=== PATIENT | female | born 1950 | race Caucasian/White ===

== ENCOUNTER → 2016-10-17 | Outpatient (CLI) | payer OTHER ==
--- NOTE | 2016-10-18 09:03 | BD ---
EXAMINATION TYPE: MG DEXA axial skeleton. DATE OF EXAM: 10/17/2016 COMPARISON: Prior DEXA bone scan March 31, 2013 CLINICAL HISTORY: Breast cancer per order. Height: 4'10 Weight: 105.4 FRAX RISK QUESTIONS: Alcohol (3 or more units per day): NO Family History (Parent hip fracture): NO Glucocorticoids (More than 3mos): NO (Ex: prednisone, prednisolone, methylprednisolone, dexamethasone, and hydrocortisone). History of Fracture in Adulthood: NO Secondary Osteoporosis: 1. Type 1 Diabetes: NO 2. Hyperthyroidism: NO 3. Menopause before 45: YES 4. Malnutrition: NO 5. Chronic liver disease: NO Rheumatoid Arthritis: NO Current Tobacco Use: NO RISK FACTORS HISTORY OF: Hip Fracture (Right/Left): NO Spine Fracture: NO History of Wrist Fracture: NO Surgery to Spine/Hip(right/left)/Wrist (right/left): NO Family History of Osteoporosis: NO Active: YES Diet low in dairy products/other sources of calcium: NO Postmenopausal woman: AGE 37 DUE TO BREAST CANCER Lost more than 2 inches in height since high school: NO Frequent falls: NO Poor Health: NO Hyperparathyroidism: NO Adrenal Insufficiency: NO MEDICATIONS: CHEMO PILLS, CHEMO SHOTS, FOSAMAX 2-3 YEARS , IBRANCE Additional History: PT HAS HAD BREAST CANCER/ ALSO HAD BONE AND LUNG CANCER EXAM MEASUREMENTS: Bone mineral densitometry was performed using the [email or web address] System. Bone mineral density as measured about the Lumbar spine is: ----- L1-L4(G/cm2): 0.718 T Score Values are as follows: ----- L2: -4.2 ----- L3: -3.6 ----- L4: -3.5 ----- L1-L4: -3.8 Bone mineral density has: DECREASED -5.9 % since study of: 03.31.2013 Bone mineral density about the R hip (g/cm2): 0.535 Bone mineral density about the L hip (g/cm2): 0.547 T Score values are as follows: -----R Neck: -3.6 -----L Neck: -3.5 -----R Total: -3.3 -----L Total: -3.4 Bone mineral density has: DECREASED -11.6 % since study of: 03.31.2013 IMPRESSION: Osteoporosis (T Score less than -2.5) as noted by T Score values at the low back and both hips remain s present. Bone density continues to decreased or diminished from prior study. There is increased fra cture risk and therapy is usually indicated based on age. Re-Screen 1-2 years. NOTE: T-SCORE=SD OF THE YOUNG ADULT MEAN.
== END | disposition home or self-care (01) ==
LOC: RADBDWWP 14:58
PROVIDERS: ATTEND Internal Medicine Hematology & Oncology
DX: C50.819 Malignant neoplasm of overlapping sites of unspecified female breast (principal); M81.0 Age-related osteoporosis without current pathological fracture
CPT/HCPCS: 77080

== ENCOUNTER → 2018-04-14 | Outpatient (CLI) | payer OTHER ==
--- NOTE | 2018-04-14 12:07 | ECHOF ---
Referral Reason:I34.0 mitral valve insufficiency MEASUREMENTS -------- HEIGHT: 147.3 cm WEIGHT: 48.1 kg BP: 120/75 RVIDd: 2.1 cm (< 3.3) IVSd: 1.0 cm (0.6 - 1.1) LVIDd: 3.7 cm (3.9 - 5.3) LVPWd: 0.9 cm (0.6 - 1.1) IVSs: 1.2 cm LVIDs: 2.1 cm LVPWs: 1.2 cm LA Diam: 2.6 cm (2.7 - 3.8) LAESV Index (A-L): 19.29 ml/m Ao Diam: 2.9 cm (2.0 - 3.7) AV Cusp: 1.9 cm (1.5 - 2.6) MV EXCURSION: 14.056 mm (> 18.000) MV EF SLOPE: 50 mm/s (70 - 150) EPSS: 0.7 cm MV E Aram: 0.72 m/s MV DecT: 166 ms MV A Aram: 1.01 m/s MV E/A Ratio: 0.71 RAP: 5.00 mmHg RVSP: 27.00 mmHg FINDINGS -------- Sinus rhythm. This was a technically adequate study. The left ventricular size is normal. Left ventricular wall thickness is normal. Overall left vent ricular systolic function is normal with, an EF between 55 - 60 %. The right ventricle is normal in size. Normal LA size by volume 22+/-6 ml/m2. The right atrium is normal in size. The aortic valve is trileaflet and appears structurally normal. Trace to mild aortic regurgitation. The mitral valve is normal. There is trace to mild mitral regurgitation. Mild tricuspid regurgitation present. Right ventricular systolic pressure is normal at < 35 mmHg. There is no evidence of pulmonary hypertension. Trace/mild (physiologic) pulmonic regurgitation. The aortic root size is normal. Normal inferior vena cava with normal inspiratory collapse consistent with estimated right atrial pre ssure of 5 mmHg. There is no pericardial effusion. CONCLUSIONS -------- 1. Sinus rhythm. 2. This was a technically adequate study. 3. The left ventricular size is normal. 4. Left ventricular wall thickness is normal. 5. Overall left ventricular systolic function is normal with, an EF between 55 - 60 %. 6. Normal LA size by volume 22+/-6 ml/m2. 7. Trace to mild aortic regurgitation. 8. There is trace to mild mitral regurgitation. 9. Mild tricuspid regurgitation present. 10. Right ventricular systolic pressure is normal at < 35 mmHg. 11. Trace/mild (physiologic) pulmonic regurgitation. 12. The aortic root size is normal. 13. Normal inferior vena cava with normal inspiratory collapse consistent with estimated right atrial pressure of 5 mmHg. 14. There is no pericardial effusion. CLASSROOM PARAPROFESSIONAL: Johnna Zavala RDCS
== END | disposition home or self-care (01) ==
LOC: RADECHMAIN 08:19
PROVIDERS: ATTEND Family Medicine
DX: I08.8 Other rheumatic multiple valve diseases (principal); C50.819 Malignant neoplasm of overlapping sites of unspecified female breast
CPT/HCPCS: 93306

== ENCOUNTER → 2018-12-15 | Outpatient (CLI) | payer OTHER ==
--- NOTE | 2018-12-15 10:34 | BD ---
EXAMINATION TYPE: Axial Bone Density DATE OF EXAM: 12/15/2018 COMPARISON: 2017 CLINICAL HISTORY: disorder of bone Height: 4'9 Weight: 100 FRAX RISK QUESTIONS: Secondary Osteoporosis: 3. Menopause before 45: y RISK FACTORS HISTORY OF: Postmenopausal woman: y -----Osteoporosis Medications: -----Which medication: Fosamax -----How Lon years MEDICATIONS: Additional Medications: breast cancer Additional History: 2013 radiation for breast cancer, 20 years ago chemotherapy EXAM MEASUREMENTS: Bone mineral densitometry was performed using the [employer] System. Bone mineral density as measured about the Lumbar spine is: ----- L1-L4(G/cm2): 0.708 T Score Values are as follows: ----- L2: -4.1 ----- L3: -3.5 ----- L4: -3.7 ----- L1-L4: -3.9 Bone mineral density has: Decreased -0.5% since study of: 10/17/2016 Bone mineral density about the R hip (g/cm2): 0.526 Bone mineral density about the L hip (g/cm2): 0.550 T Score values are as follows: -----R Neck: -3.7 -----L Neck: -3.5 -----R Total: -3.5 -----L Total:-3.6 Bone mineral density has: Decreased -4.4% since study of: 10/17/2016 IMPRESSION: Osteoporosis (T Score less than -2.5) remains present. There remains increased fracture risk and therapy is usually indicated based on age. Re-Screen 1-2 years. NOTE: T-SCORE=SD OF THE YOUNG ADULT MEAN.
== END | disposition home or self-care (01) ==
LOC: RADBDWWP 09:05
PROVIDERS: ATTEND Internal Medicine Hematology & Oncology
DX: M81.0 Age-related osteoporosis without current pathological fracture (principal); C50.819 Malignant neoplasm of overlapping sites of unspecified female breast
CPT/HCPCS: 77080

== ENCOUNTER 2019-03-02 17:00 | Emergency (ER) | payer MEDICARE, BC ==
--- NOTE | 2019-03-02 17:22 | ED ---
General Adult HPI - General Chief complaint: Upper Respiratory Infection Stated complaint: Viral infection Time Seen by Provider: 03/02/19 17:15 Source: patient, RN notes reviewed, old records reviewed Mode of arrival: ambulatory Limitations: no limitations - History of Present Illness Initial comments: 68-year-old female presenting for evaluation of cough, dehydration. Patient was sent in by primary care physician for evaluation. She has metastatic breast cancer currently following with oncology and receiving monthly infusion. She denies fever. She's had increased fatigue and weakness associated with this cough. Cough is productive of green sputum. She denies rhinorrhea, denies sore throat. She states she's had very poor appetite and has not been eating or drinking well. No vomiting or diarrhea. No dyspnea or shortness of breath. No abdominal pain. No lower extremity pain or swelling. - Related Data Home Medications Medication Instructions Recorded Confirmed Multivitamins, Thera [Multivitamin 1 tab PO DAILY 03/02/19 03/02/19 (formulary)] Palbociclib [Ibrance] 125 mg PO DIRECTED 03/02/19 03/02/19 Previous Rx's Medication Instructions Recorded Levofloxacin [Levaquin] 750 mg PO DAILY 3 Days #7 tab 03/02/19 Allergies Allergy/AdvReac Type Severity Reaction Status Date / Time No Known Allergies Allergy Verified 03/02/19 18:22 Review of Systems ROS Statement: Those systems with pertinent positive or pertinent negative responses have been documented in the HPI. ROS Other: All systems not noted in ROS Statement are negative. Past Medical History Past Medical History: Cancer Additional Past Medical History / Comment(s): breast ca History of Any Multi-Drug Resistant Organisms: None Reported Past Surgical History: Breast Surgery Additional Past Surgical History / Comment(s): lt masectomy Past Psychological History: No Psychological Hx Reported Smoking Status: Never smoker Past Alcohol Use History: None Reported Past Drug Use History: None Reported General Exam Limitations: no limitations General appearance: alert, in no apparent distress Head exam: Present: atraumatic, normocephalic Eye exam: Present: normal appearance, PERRL ENT exam: Present: mucous membranes dry Respiratory exam: Present: rhonchi. Absent: respiratory distress, wheezes, rales Cardiovascular Exam: Present: normal rhythm, tachycardia GI/Abdominal exam: Present: soft. Absent: distended, tenderness, guarding, rebound Extremities exam: Present: normal inspection, normal capillary refill. Absent: pedal edema, calf tenderness Neurological exam: Present: alert, oriented X3, CN II-XII intact. Absent: motor sensory deficit Psychiatric exam: Present: normal affect, normal mood Skin exam: Present: warm, dry, intact. Absent: cyanosis, diaphoretic Course Vital Signs 03/02/19 17:02 Temperature 98.4 F Pulse Rate 130 H Respiratory 22 Rate Blood Pressure 124/71 O2 Sat by Pulse 97 Oximetry EKG Findings - EKG Comments: EKG Findings:: EKG: Sinus tachycardia, left axis deviation, rate of 106, [place] interval 128, QRS duration 96, QTC [address] segment elevation Medical Decision Making - Medical Decision Making 68-year-old female with metastatic breast cancer increased cough. Workup in the emergency department reveals chest x-ray with large left-sided pleural effusion and loss of her volume which has progressed compared to compared with chest x- ray. She has leukopenia with a white blood cell count of 3.3. Potassium 3.4. Otherwise laboratory studies are unremarkable. Vital signs improved with IV hydration. She admits to not drinking very well over the past several days. I prefer the patient be admitted for IV hydration and IV antibiotics for concern of consolidation in the left lung versus tumor progression. She declines. She wishes to be discharged. She states she will return if she worsens. She wants to go home and try to drink more fluids and wants a prescription for outpatient antibiotics. She has good outpatient follow-up and does not want to be admitted at this time. Her is at bedside during this discussion. - Lab Data Result diagrams: 03/02/19 17:36 03/02/19 17:36 Lab Results 03/02/19 03/02/19 03/02/19 Range/Units 17:36 17:36 17:36 WBC 3.3 L (3.8-10.6) k/uL RBC 3.23 L (3.80-5.40) m/uL Hgb 12.4 (11.4-16.0) gm/dL Hct 36.6 (34.0-46.0) % MCV 113.3 H (80.0-100.0) fL MCH 38.2 H (25.0-35.0) pg MCHC 33.7 (31.0-37.0) g/dL RDW 13.0 (11.5-15.5) % Plt Count 267 (150-450) k/uL Neutrophils % 81 % Lymphocytes % 7 % Monocytes % 8 % Eosinophils % 0 % Basophils % 1 % Neutrophils # 2.7 (1.3-7.7) k/uL Lymphocytes # 0.2 L (1.0-4.8) k/uL Monocytes # 0.3 (0-1.0) k/uL Eosinophils # 0.0 (0-0.7) k/uL Basophils # 0.0 (0-0.2) k/uL Macrocytosis Marked A PT (9.0-12.0) sec INR (<1.2) APTT (22.0-30.0) sec Sodium 137 (137-145) mmol/L Potassium 3.4 L (3.5-5.1) mmol/L Chloride 96 L (98-107) mmol/L Carbon Dioxide 31 H (22-30) mmol/L Anion Gap 10 mmol/L BUN 13 (7-17) mg/dL Creatinine 0.65 (0.52-1.04) mg/dL Est GFR (CKD-EPI)AfAm >90 (>60 ml/min/1.73 sqM) Est GFR (CKD-EPI)NonAf >90 (>60 ml/min/1.73 sqM) Glucose 158 H (74-99) mg/dL Plasma Lactic Acid Patrick (0.7-2.0) mmol/L Calcium 8.9 (8.4-10.2) mg/dL Total Bilirubin 0.7 (0.2-1.3) mg/dL AST 20 (14-36) U/L ALT 13 (4-34) U/L Alkaline Phosphatase 73 (38-126) U/L Total Protein 7.2 (6.3-8.2) g/dL Albumin 4.1 (3.5-5.0) g/dL Influenza Type A RNA Not Detected (Not Detectd) Influenza Type B (PCR) Not Detected (Not Detectd) 03/02/19 03/02/19 Range/Units 17:36 17:36 WBC (3.8-10.6) k/uL RBC (3.80-5.40) m/uL Hgb (11.4-16.0) gm/dL Hct (34.0-46.0) % MCV (80.0-100.0) fL MCH (25.0-35.0) pg MCHC (31.0-37.0) g/dL RDW (11.5-15.5) % Plt Count (150-450) k/uL Neutrophils % % Lymphocytes % % Monocytes % % Eosinophils % % Basophils % % Neutrophils # (1.3-7.7) k/uL Lymphocytes # (1.0-4.8) k/uL Monocytes # (0-1.0) k/uL Eosinophils # (0-0.7) k/uL Basophils # (0-0.2) k/uL Macrocytosis PT 11.1 (9.0-12.0) sec INR 1.1 (<1.2) APTT 24.7 (22.0-30.0) sec Sodium (137-145) mmol/L Potassium (3.5-5.1) mmol/L Chloride (98-107) mmol/L Carbon Dioxide (22-30) mmol/L Anion Gap mmol/L BUN (7-17) mg/dL Creatinine (0.52-1.04) mg/dL Est GFR (CKD-EPI)AfAm (>60 ml/min/1.73 sqM) Est GFR (CKD-EPI)NonAf (>60 ml/min/1.73 sqM) Glucose (74-99) mg/dL Plasma Lactic Acid Patrick 1.6 (0.7-2.0) mmol/L Calcium (8.4-10.2) mg/dL Total Bilirubin (0.2-1.3) mg/dL AST (14-36) U/L ALT (4-34) U/L Alkaline Phosphatase (38-126) U/L Total Protein (6.3-8.2) g/dL Albumin (3.5-5.0) g/dL Influenza Type A RNA (Not Detectd) Influenza Type B (PCR) (Not Detectd) Disposition Clinical Impression: Pneumonia, Metastatic breast cancer Disposition: HOME SELF-CARE Condition: Fair Instructions (If sedation given, give patient instructions): Bacterial Pneumonia (ED) Additional Instructions: Please return with any worsening or changing symptoms. Prescriptions: Levofloxacin [Levaquin] 750 mg PO DAILY 3 Days #7 tab Is patient prescribed a controlled substance at d/c from ED?: No Referrals: Sangita Knight MD [Primary Care Provider] - 1-2 days Time of Disposition: 19:00
[2019-03-02] MEDS: SODIUM CHLORIDE 0.9% 500 ML 500 ML IV SCH ×2 (17:37→18:39)
[2019-03-02 18:00] LABS: Basophils % (A) 1 %; Eosinophils % (A) 0 %; HCT 36.6 % (34.0-46.0); HGB 12.4 gm/dL (11.4-16.0); Lymphocytes # (A) 0.2 k/uL (1.0-4.8); Lymphocytes % (A) 7 %; MCH 38.2 pg (25.0-35.0); MCHC 33.7 g/dL (31.0-37.0); MCV 113.3 fL (80.0-100.0); Macrocytosis Marked; Mean Platelet Volume 7.5; Monocytes # (A) 0.3 k/uL (0-1.0); Monocytes % (A) 8 %; Neutrophils # (A) 2.7 k/uL (1.3-7.7); Neutrophils % (A) 81 %; Platelet Count 267 k/uL (150-450); RBC 3.23 m/uL (3.80-5.40); WBC 3.3 k/uL (3.8-10.6)
[2019-03-02 18:12] LABS: INR 1.1 (<1.2); Partial Thromboplastin Time 24.7 sec (22.0-30.0); Prothrombin Time 11.1 sec (9.0-12.0)
[2019-03-02 18:17] LABS: ALT 13 U/L (4-34); AST 20 U/L (14-36); African American GFR (CKD) >90 (>60 ml/min/1.73 sqM); Albumin 4.1 g/dL (3.5-5.0); Alkaline Phosphatase 73 U/L (38-126); Anion Gap 10 mmol/L; Blood Urea Nitrogen 13 mg/dL (7-17); Calcium 8.9 mg/dL (8.4-10.2); Carbon Dioxide 31 mmol/L (22-30); Chloride 96 mmol/L (98-107); Glucose 158 mg/dL (74-99); Non-African American GFR(CKD) >90 (>60 ml/min/1.73 sqM); Potassium 3.4 mmol/L (3.5-5.1); Sodium 137 mmol/L (137-145); Total Bilirubin 0.7 mg/dL (0.2-1.3); Total Protein 7.2 g/dL (6.3-8.2)
--- NOTE | 2019-03-02 18:48 | XR ---
EXAMINATION TYPE: XR chest 2V DATE OF EXAM: 03/02/2019 COMPARISON: 03/01/2013 HISTORY: Fever TECHNIQUE: 2 views FINDINGS: There are clips at the left axilla. There is significant volume loss left hemithorax with l eft pleural effusion and left pulmonary consolidation and atelectasis. Right lung is fairly clear. Th ere is osteopenia. There is T7 anterior wedging of 30%. IMPRESSION: There is consolidation and pleural effusion and volume loss in the left hemithorax that h as progressed compared to last exam. This is consistent with progression of tumor. No heart failure s een.
[2019-03-02] MEDS ORDERED: cefTRIAXone IN SWFI 1,000 MG/10 ML SYRINGE IVP STA (18:51)
[2019-03-02 19:25] VITALS: BP 129/79; PULSE 89; RESP 18; TEMP 98
== END 2019-03-02 19:23 | disposition home or self-care (01) ==
LOC: EC 17:00
DX: J18.9 Pneumonia, unspecified organism (principal); C79.81 Secondary malignant neoplasm of breast; E86.0 Dehydration; Z79.899 Other long term (current) drug therapy
CPT/HCPCS: 36415; 93005; 80053; 83605; 85025; 85610; 85730; 87040; 87502; 71046; 99284; 96374; 96361 ×2; J0696

== ENCOUNTER → 2020-12-21 | Outpatient (CLI) | payer MEDICARE, BC ==
--- NOTE | 2020-12-21 13:52 | BD ---
EXAMINATION TYPE: Axial Bone Density DATE OF EXAM: 12/21/2020 COMPARISON: NONE CLINICAL HISTORY: Height: 4 FT 9 1/2 IN Weight: 93 FRAX RISK QUESTIONS: Alcohol (3 or more units per day): NO Family History (Parent hip fracture): NO Glucocorticoids (More than 3mos): NO (Ex: prednisone, prednisolone, methylprednisolone, dexamethasone, and hydrocortisone). History of Fracture in Adulthood: NO Secondary Osteoporosis: 1. Type 1 Diabetes: NO 2. Hyperthyroidism: NO 3. Menopause before 45: YES 4. Malnutrition: NO 5. Chronic liver disease: NO Rheumatoid Arthritis: NO Current Tobacco Use: NO RISK FACTORS HISTORY OF: Surgery to Spine/Hip(right/left)/Wrist (right/left): NO Family History of Osteoporosis: NO Active: YES Diet low in dairy products/other sources of calcium: NO Postmenopausal woman: CHEMO INDUCED AGE 37 Take estrogen and/or progesterone medications: NO Lost more than 2 inches in height since high school: YES Poor Health: GOOD Hyperparathyroidism: NO Adrenal Insufficiency: NO MEDICATIONS: Additional Medications: IBRANCE, FOSAMAX,FOSADEX Additional History: BREAST CANCER AGE 37 METS TO BONE AND LUNG RADIATION HAS BEEN ON FOSAMAX FOR APPROX 5 YEARS FOLLOWING METS DIAG EXAM MEASUREMENTS: Bone mineral densitometry was performed using the [employer] System. Bone mineral density as measured about the Lumbar spine is: ----- L1-L4(G/cm2): 0.717 T Score Values are as follows: ----- L2: -4.0 ----- L3: -3.4 ----- L4: -3.6 ----- L1-L4: -3.9 Bone mineral density has: INCREASED 2.1 % since study of: 2018 Bone mineral density about the R hip (g/cm2): 0.540 Bone mineral density about the L hip (g/cm2): 0.515 T Score values are as follows: -----R Neck: -3.6 -----L Neck: -3.8 -----R Total: -3.7 -----L Total: -3.8 Bone mineral density has: DECREASED -3.9 % since study of: 2019 IMPRESSION: Osteoporosis (T Score less than -2.5). There is increased fracture risk and therapy is usually indicated based on age. Re-Screen 1-2 years. NOTE: T-SCORE=SD OF THE YOUNG ADULT MEAN.
== END | disposition home or self-care (01) ==
LOC: RADBDWWP 12:26
PROVIDERS: ATTEND Internal Medicine Hematology & Oncology
DX: M81.0 Age-related osteoporosis without current pathological fracture (principal); Z78.0 Asymptomatic menopausal state
CPT/HCPCS: 77080

== ENCOUNTER → 2022-01-11 | Outpatient (CLI) | payer MEDICARE, BC ==
[2022-01-11 11:35] LABS: African American GFR (CKD) >90 (>60 ml/min/1.73 sqM); Blood Urea Nitrogen 9 mg/dL (7-17); Non-African American GFR(CKD) >90 (>60 ml/min/1.73 sqM)
--- NOTE | 2022-01-11 13:48 | CT ---
EXAMINATION TYPE: CT ChestAbdPelvis w con DATE OF EXAM: 01/11/2022 COMPARISON: 03/21/2015 HISTORY: h/o lung and breast CA CT DLP: 665 mGycm Automated exposure control for dose reduction was used. CONTRAST: CT scan of the chest, abdomen and pelvis is performed without Oral Contrast and with IV Contrast, pat ient injected with 100 mL of Isovue 300. FINDINGS: CT chest: There is marked asymmetry of the thorax with marked volume loss in the left hemithorax. There is mini mal visible left lung and the left hemithorax is predominantly filled with fluid. The visualized port ions left lung are markedly abnormal with marked interstitial density and partially consolidative den sity with air bronchograms. There is markedly less aerated lung on the current study compared to the prior study there are postsurgical clips in the left axilla. There is a left breast implant. The 7.3 mm nodule in the right lung base seen on the prior study has resolved in the interval however there is a new 6 mm nodular density in the right middle lobe which was not seen previously. The great vessels the chest are normal and there is no mediastinal, hilar or axillary adenopathy. No focal lytic or blastic osseous abnormalities are seen within the thorax. CT abdomen and pelvis: There is a small hemangioma of the liver previously. The gallbladder is not clearly identified. There is no focal mass or organomegaly involving the pancreas, spleen or adrenal glands. The kidneys excrete contrast promptly and symmetrically is no solid renal mass or hydronephrosis. Caliber the abdominal aorta is normal. There is no retroperitoneal adenopathy or hemorrhage. There is no evidence of bowel obstruction or inflammation. There is no free intraperitoneal air or fl uid. There is no pelvic mass, abscess or adenopathy. No focal lytic or blastic osseous abnormalities are seen. IMPRESSION: 1. Markedly abnormal left hemithorax with marked volume loss and minimal aerated lung( far less aerat ed compared to previous.). Markedly abnormal visualized left lung with marked areas of confluent dens ities and coarse interstitial densities with air bronchograms. The findings raise the question of rad iation treatment and partial lung resection. 2. New 6 mm nodule in the right middle lobe and the possibility of metastatic disease is not excluded . Short-term follow-up chest CT in 3-4 months is recommended. 3. Left mastectomy with left breast implant. 4. No mediastinal, hilar or axillary adenopathy. 5. No evidence of metastatic disease within the abdomen or pelvis. Incidental note is made of a heman gioma in the liver.
--- NOTE | 2022-01-11 16:43 | NM ---
EXAMINATION TYPE: NM bone scan whole body DATE OF EXAM: 01/11/2022 COMPARISON: 03/27/2015 HISTORY: History of breast cancer Delayed whole-body scanning was performed following the injection of 24.7 mCi Tc 99m MDP. Images wer e acquired 3.5 hours post injection. FINDINGS: There is some uptake in the right antecubital fossa compatible with the injection site. Radiotracer d istribution throughout the axial and appendicular skeleton appears normal. No suspicious uptake to olvera ggest metastatic disease. There is some accumulation in the right renal pelvis. Previous uptake within the right rib has resolved. Previous uptake within the cervical and thoracic s pine is not evident. IMPRESSION: 1. No suspicious uptake to suggest metastatic disease
== END | disposition home or self-care (01) ==
LOC: RADNMMAIN 10:37
PROVIDERS: ATTEND Internal Medicine Hematology & Oncology
DX: C50.812 Malignant neoplasm of overlapping sites of left female breast (principal); D18.03 Hemangioma of intra-abdominal structures; J98.4 Other disorders of lung; R91.1 Solitary pulmonary nodule; Z90.12 Acquired absence of left breast and nipple; Z98.82 Breast implant status
CPT/HCPCS: 82565; 84520; 71260; 74177; 36415; 78306; A9503; Q9967

== ENCOUNTER → 2022-06-06 | Outpatient (CLI) | payer MEDICARE, BC ==
--- NOTE | 2022-06-06 13:11 | CT ---
EXAMINATION TYPE: CT chest wo con DATE OF EXAM: 06/06/2022 COMPARISON: 01/11/2022 HISTORY: Difficulty breathing. CT DLP: 652 mGycm High-resolution noncontrast CT of the chest was performed with the patient in the prone and supine po sitions. Lung and mediastinal window settings are submitted. Again noted is marked volume loss left hemithorax with a small amount of aerated lung noted. Cystic c hanges are seen which may reflect cystic bronchiectasis. There is a large loculated fluid collection as was seen previously within the left pleural space. There is hyperinflation of the right lung with new moderate right-sided effusion measuring 3.4 cm AP dimension. There is nodularity of the right ple ural surface measuring 8 mm and 9 mm respectively right mid lung zone as well as additional nodule ri ght upper lobe 3 1 cm. Right apical scarring is noted. Fluid is seen within the right major fissure. IMPRESSION: 1. Continued marked volume loss left hemithorax with a small amount of aerated lung and cystic change s seen as discussed above. Stable large loculated fluid collection seen within the left pleural space . 2. New moderate sized right-sided pleural effusion. Nodular pleural study not seen. Metastatic diseas e is not excluded.
== END | disposition home or self-care (01) ==
LOC: RADCTMAIN 12:40
PROVIDERS: ATTEND Internal Medicine Hematology & Oncology
DX: J91.0 Malignant pleural effusion (principal); J69.0 Pneumonitis due to inhalation of food and vomit
CPT/HCPCS: 71250

== ENCOUNTER 2022-07-25 08:48 | Day surgery (SDC) | payer MEDICARE, BC ==
[2022-07-25 09:33] LABS: Mean Platelet Volume 7.4; Platelet Count 265 k/uL (150-450)
[2022-07-25 09:46] VITALS: RESP 24; TEMP 97.3
--- NOTE | 2022-07-25 10:51 | XR ---
EXAMINATION TYPE: XR chest 1V portable DATE OF EXAM: 07/25/2022 COMPARISON: 03/02/2019 HISTORY: Postthoracentesis TECHNIQUE: Single frontal view of the chest is obtained. FINDINGS: There is interval removal of pleural fluid. There is approximate 30% right-sided pneumotho rax. No mediastinal deviation. Left-sided consolidation and pleural effusion noted. There is diffuse osteopenia. IMPRESSION: 1. There is approximate 30% right-sided pneumothorax postthoracentesis. 2. Left pleural effusion.
--- NOTE | 2022-07-25 10:54 | US ---
Ultrasound-guided therapeutic thoracentesis DATE OF EXAM: 07/25/2022 CLINICAL HISTORY: Right pleural effusion The procedure was discussed with the patient. The risks, complications, benefits, and alternatives we re discussed and any questions were answered. Informed consent was obtained. The patient was placed supine on the ultrasound table and prepped and draped in the usual sterile fas hion. All elements of maximal barrier and sterile technique were utilized. Under ultrasound guidance, access into the pleural space was obtained, via the thoracentesis catheter system and direct ultrasound guidance. Ap proximately 0.8 liters of blood-tinged serous fluid was removed. The patient was stable throughout the procedure and remained stable upon discharge from Department of Radiology. IMPRESSION: 1. Successful therapeutic thoracentesis under ultrasound guidance.
--- NOTE | 2022-07-25 11:52 | XR ---
EXAMINATION TYPE: XR chest 1V portable DATE OF EXAM: 07/25/2022 HISTORY: Shortness of breath. COMPARISON: 07/25/2022 TECHNIQUE: Single view of the chest is submitted. FINDINGS: Right-sided pneumothorax appears to have increased with the basilar pleural distance of 4 cm versus 2 .4 cm previously. Pneumothorax is estimated at 35%. Near complete opacification left hemithorax persists and appears essentially unchanged. The heart is stable. Hilar and mediastinal structures are stable. Degenerative changes are seen of the dorsal spine. IMPRESSION: 1. Right-sided pneumothorax appears to have increased with the basilar pleural distance of 4 cm vers us 2.4 cm previously. Pneumothorax is estimated at 35%.
--- NOTE | 2022-07-25 15:14 | CT ---
EXAMINATION TYPE: CT chest tube insertion DATE OF EXAM: 07/25/2022 COMPARISON: 07/25/2022 HISTORY: Chest tube insertion. For pneumothorax. CT DLP: 143.8 mGycm The procedure is discussed with the patient, the risks, complications, benefits and alternatives, wer e discussed and any questions were answered. Informed consent was obtained. The patient is placed p dinorah on the CT table, prepped and draped in the usual sterile fashion. Utilizing a 22-gauge Chiba needle access into the right pleural space was achieved with passage and a 0.018 wire. There is conversion to an 0.035 system and placement of an 8 Irish drainage catheter. R epeat imaging demonstrated ideal positioning the catheter.. Delete that All elements of maximal barrier and sterile technique were utilized. The patient remained stable thr oughout the procedure with no immediate postprocedural complication. IMPRESSION: 1. Successful CT guided right chest tube placement for pneumothorax.
[2022-07-25 16:11] VITALS: BP 161/97; PULSE 110
== END 2022-07-25 12:25 | disposition other institution (70) ==
LOC: RADPROMAIN 08:48
PROVIDERS: ATTEND Internal Medicine Hematology & Oncology
DX: C50.911 Malignant neoplasm of unspecified site of right female breast (principal); J90 Pleural effusion, not elsewhere classified; Z80.3 Family history of malignant neoplasm of breast
CPT/HCPCS: 32551; 32555; 36415; 71045; 85049; 85610; 88108; 88305; 88341; 88342

== ENCOUNTER 2022-07-25 12:17 | Inpatient (IN) | payer MEDICARE, BC ==
--- NOTE | 2022-07-25 12:35 | ED ---
General Adult HPI - General Chief complaint: Shortness of Breath Stated complaint: SOB Time Seen by Provider: 07/25/22 12:30 Source: patient, RN/MD, RN notes reviewed, old records reviewed Mode of arrival: wheelchair Limitations: no limitations - History of Present Illness Initial comments: This is a 71-year-old female who presents emergency Department from radiology. Patient does have a thoracentesis and the patient began having difficulty breathing and they did an x-ray and thought there was a pneumothorax so they put in a pigtail chest tube and sent the patient aspirin patient currently states she's not having any pain she no longer feels short of breath. Patient denies any recent fever chills. Patient does have a history of breast cancer that metastasized to the lung. - Related Data Home Medications Medication Instructions Recorded Confirmed Exemestane [Aromasin] 25 mg PO HS 07/17/22 07/25/22 Ondansetron [Zofran] 4 mg PO Q4H PRN 07/17/22 07/25/22 Everolimus 10 mg PO HS 07/25/22 07/25/22 Fluticasone/Umeclidin/Vilanter 1 puff INHALATION RT-HS 07/25/22 07/25/22 [Trelegy Ellipta 100-62.5-25] Allergies Allergy/AdvReac Type Severity Reaction Status Date / Time No Known Allergies Allergy Verified 07/25/22 13:14 Review of Systems ROS Statement: Those systems with pertinent positive or pertinent negative responses have been documented in the HPI. ROS Other: All systems not noted in ROS Statement are negative. Past Medical History Past Medical History: Cancer Additional Past Medical History / Comment(s): breast ca, lung CA History of Any Multi-Drug Resistant Organisms: None Reported Past Surgical History: Breast Surgery Additional Past Surgical History / Comment(s): lt masectomy Past Anesthesia/Blood Transfusion Reactions: No Reported Reaction Past Psychological History: No Psychological Hx Reported Smoking Status: Never smoker Past Alcohol Use History: None Reported Past Drug Use History: None Reported General Exam - General Exam Comments Initial Comments: GENERAL: Patient is well-developed and somewhat cachectic. Patient is nontoxic and well- hydrated and is in no acute distress. ENT: Neck is soft and supple. No significant lymphadenopathy is noted. Oropharynx is clear. Moist mucous membranes. Neck has full range of motion without eliciting any pain. EYES: The sclera were anicteric and conjunctiva were pink and moist. Extraocular movements were intact and pupils were equal round and reactive to light. Eyelids were unremarkable. PULMONARY: Unlabored respirations. Patient has rhonchi bilaterally much more in the right than the left CARDIOVASCULAR: There is a regular rate and rhythm without any murmurs gallops or rubs. ABDOMEN: Soft and nontender with normal bowel sounds. SKIN: Skin is clear with no lesions or rashes and otherwise unremarkable. NEUROLOGIC: Patient is alert and oriented x3. Cranial nerves II through XII are grossly intact. Motor and sensory are also intact. Normal speech, volume and content. Symmetrical smile. MUSCULOSKELETAL: Normal extremities with adequate strength and full range of motion. No lower extremity swelling or edema. No calf tenderness. LYMPHATICS: No significant lymphadenopathy is noted PSYCHIATRIC: Normal psychiatric evaluation. Limitations: no limitations Course Vital Signs 07/25/22 12:30 Pulse Rate 117 H Respiratory 28 H Rate Blood Pressure 133/78 O2 Sat by Pulse 96 Oximetry Medical Decision Making - Medical Decision Making EKG was interpreted by myself shows sinus tachycardia at 112 bpm NH interval is 142 QRS is 101 every temperature 34 QTC is 400. Patient's EKG shows no ST segment elevation or depression. Patient states that he always is tachycardic and that is not unusual. Was pt. sent in by a medical professional or institution (, PA, CLERICAL ASSISTANT, urgent care, hospital, or [place] health care facility...) When possible be specific @ -Patient was sent over to us by the radiologist Dr. Morrell Did you speak to anyone other than the patient for history (EMS, parent, family, police, friend...)? What history was obtained from this source @ -I spoke with Dr. Morrell about this case prior to the patient's arrival Did you review nursing and triage notes (agree or disagree)? Why? @ -I reviewed and agree with nursing and triage notes Were old charts reviewed (outside hosp., previous admission, EMS record, old EKG, old radiological studies, urgent care reports/EKG's, [place] health care facility records)? Report findings @ -No old charts were reviewed Differential Diagnosis (chest pain, altered mental status, abdominal pain women, abdominal pain men, vaginal bleeding, weakness, fever, dyspnea, syncope, headache, dizziness, GI bleed, back pain, seizure, CVA, palpatations, mental health, musculoskeletal)? @ -Differential Dyspnea: Coronary syndrome, arrhythmia, tamponade, asthma, COPD, pulmonary embolism, pneumonia, pneumothorax, pulmonary effusion, anaphylaxis, diabetic ketoacidosis, flailed chest, pulmonary contusion, diaphragmatic rupture, anemia, neuromuscular, this is not meant to be an all-inclusive list. EKG interpreted by me (3pts min.). @ -As above X-rays interpreted by me (1pt min.). @ -None done CT interpreted by me (1pt min.). @ -None done U/S interpreted by me (1pt. min.). @ -None done What testing was considered but not performed or refused? (CT, X-rays, U/S, labs)? Why? @ -None What meds were considered but not given or refused? Why? @ -None Did you discuss the management of the patient with other professionals (professionals i.e. , PA, CLERICAL ASSISTANT, lab, RT, psych nurse, social insurance analyst, marine service station attendant, teacher, juvenile detention officer, major case detective)? Give summary @ -With Dr. Seth he was in agreement with admitting the patient Was smoking cessation discussed for >3mins.? @ -No Was critical care preformed (if so, how long)? @ -No Were there social determinants of health that impacted care today? How? (Homelessness, low income, unemployed, alcoholism, drug addiction, transportation, low edu. Level, literacy, decrease access to med. care, correction, rehab)? @ -No Was there de-escalation of care discussed even if they declined (Discuss DNR or withdrawal of care, Hospice)? DNR status @ -No What co-morbidities impacted this encounter? (DM, HTN, Smoking, COPD, CAD, Cancer, CVA, ARF, Chemo, Hep., AIDS, mental health diagnosis, sleep apnea, morbid obesity)? @ -None Was patient admitted / discharged? Hospital course, mention meds given and rou te, prescriptions, significant lab abnormalities, going to OR and other pertinent info. @ -Patient was in radiology and a small pigtail chest tube was placed. 2 x- rays were done I reviewed both of those and there was still some pneumothorax remaining. I went in and reevaluated the patient on 2 separate occasions after my initial interview and both times she stated she was no longer short of breath and not in any pain. Patient states she felt back to her baseline. I spoke with Dr. Seth he agreed to admit the patient I admitted the patient and I consult the pulmonary Undiagnosed new problem with uncertain prognosis? @ -No Drug Therapy requiring intensive monitoring for toxicity (Heparin, Nitro, Insulin, Cardizem)? @ -No Were any procedures done? @ -No Diagnosis/symptom? @ -Pneumothorax Acute, or Chronic, or Acute on Chronic? @ -Acute Uncomplicated (without systemic symptoms) or Complicated (systemic symptoms)? @ -Complicated Side effects of treatment? @ -No Exacerbation, Progression, or Severe Exacerbation? @ -No Poses a threat to life or bodily function? How? (Chest pain, [place], [place], pneumonia, PE, COPD, DKA, ARF, appy, cholecystitis, CVA, Diverticulitis, Homicidal, Suicidal, threat to staff... and all critical care pts) @ -Yes this could lead to tension pneumothorax which could lead to life threatening event Diagnosis/symptom? @ -History of breast cancer with metastatic disease Acute, or Chronic, or Acute on Chronic? @ -Chronic Uncomplicated (without systemic symptoms) or Complicated (systemic symptoms)? @ -Complicated Side effects of treatment? @ -none Exacerbation, Progression, or Severe Exacerbation] @ -no Poses a threat to life or bodily function? @ -no - Lab Data Result diagrams: 07/25/22 12:33 07/25/22 12:33 Lab Results 07/25/22 07/25/22 Range/Units 12:33 12:33 WBC 5.0 (3.8-10.6) k/uL RBC 4.45 (3.80-5.40) m/uL Hgb 13.9 (11.4-16.0) gm/dL Hct 42.3 (34.0-46.0) % MCV 95.1 (80.0-100.0) fL MCH 31.2 (25.0-35.0) pg MCHC 32.9 (31.0-37.0) g/dL RDW 14.2 (11.5-15.5) % Plt Count 320 (150-450) k/uL MPV 7.7 Neutrophils % 81 % Lymphocytes % 12 % Monocytes % 4 % Eosinophils % 2 % Basophils % 0 % Neutrophils # 4.1 (1.3-7.7) k/uL Lymphocytes # 0.6 L (1.0-4.8) k/uL Monocytes # 0.2 (0-1.0) k/uL Eosinophils # 0.1 (0-0.7) k/uL Basophils # 0.0 (0-0.2) k/uL Sodium 135 L (137-145) mmol/L Potassium 4.2 (3.5-5.1) mmol/L Chloride 96 L (98-107) mmol/L Carbon Dioxide 30 (22-30) mmol/L Anion Gap 9 mmol/L BUN 11 (7-17) mg/dL Creatinine 0.44 L (0.52-1.04) mg/dL Est GFR (CKD-EPI)AfAm >90 (>60 ml/min/1.73 sqM) Est GFR (CKD-EPI)NonAf >90 (>60 ml/min/1.73 sqM) Glucose 154 H (74-99) mg/dL Calcium 8.9 (8.4-10.2) mg/dL Magnesium 1.9 (1.6-2.3) mg/dL Total Bilirubin 0.5 (0.2-1.3) mg/dL AST 42 H (14-36) U/L ALT 26 (4-34) U/L Alkaline Phosphatase 92 (38-126) U/L Total Protein 7.1 (6.3-8.2) g/dL Albumin 4.0 (3.5-5.0) g/dL Disposition Clinical Impression: Pneumothorax Disposition: ADMITTED IP TO THIS [facility] Referrals: Sangita Knight MD [Primary Care Provider] - 1-2 days Time of Disposition: 14:07
[2022-07-25 12:51] LABS: Basophils % (A) 0 %; Eosinophils # (A) 0.1 k/uL (0-0.7); Eosinophils % (A) 2 %; HCT 42.3 % (34.0-46.0); HGB 13.9 gm/dL (11.4-16.0); Lymphocytes # (A) 0.6 k/uL (1.0-4.8); Lymphocytes % (A) 12 %; MCH 31.2 pg (25.0-35.0); MCHC 32.9 g/dL (31.0-37.0); MCV 95.1 fL (80.0-100.0); Mean Platelet Volume 7.7; Monocytes # (A) 0.2 k/uL (0-1.0); Monocytes % (A) 4 %; Neutrophils # (A) 4.1 k/uL (1.3-7.7); Neutrophils % (A) 81 %; Platelet Count 320 k/uL (150-450); RBC 4.45 m/uL (3.80-5.40); RDW 14.2 % (11.5-15.5)
[2022-07-25 13:07] LABS: ALT 26 U/L (4-34); AST 42 U/L (14-36); African American GFR (CKD) >90 (>60 ml/min/1.73 sqM); Alkaline Phosphatase 92 U/L (38-126); Anion Gap 9 mmol/L; Blood Urea Nitrogen 11 mg/dL (7-17); Calcium 8.9 mg/dL (8.4-10.2); Carbon Dioxide 30 mmol/L (22-30); Chloride 96 mmol/L (98-107); Glucose 154 mg/dL (74-99); Magnesium 1.9 mg/dL (1.6-2.3); Non-African American GFR(CKD) >90 (>60 ml/min/1.73 sqM); Potassium 4.2 mmol/L (3.5-5.1); Sodium 135 mmol/L (137-145); Total Bilirubin 0.5 mg/dL (0.2-1.3); Total Protein 7.1 g/dL (6.3-8.2)
[2022-07-25] MEDS ORDERED: SODIUM CHLORIDE 0.9% 1,000 ML IV ONE (14:07)
--- NOTE | 2022-07-25 17:33 | P.HPIM ---
History of Present Illness H&P Date: 07/25/22 Alice Boudreaux, is a 71-year-old female who presented to [facility] emergency room with a chief complaint of shortness of breath, patient underwent thoracentesis in the radiology department she started having shortness of breath chest x-ray revealed evidence of pneumothorax patient had a Pig-tail chest tube inserted and was sent to emergency room. She was evaluated in the emergency room vital examination on presentation revealed a pulse of 117 respiration 28 blood pressure 133/78 pulse ox 96% on room air Laboratory data revealed a white blood count of 5.0 hemoglobin 13.9 platelet count 320 sodium 135 potassium 4.2 chloride 96 CO2 30 BUN 11 creatinine 0.44 Testing in the emergency room revealed EKG was done in the emergency room and revealed sinus tachycardia and poor R-wave progression in the anterior leads Patient was admitted to medical floor for further evaluation and treatment Past medical history is significant for history of breast cancer, history of pleural effusion, history of osteoporosis On review of systems patient is alert and oriented 3 in no apparent distress, she is feeling better shortness of breath is improving there is no fever or chills no headache or dizziness no chest pain no cough no nausea or vomiting no abdominal pain no diarrhea no blood in the stools no burning with urination no frequency or urgency and no hematuria Past Medical History Past Medical History: Cancer Additional Past Medical History / Comment(s): breast ca, lung CA History of Any Multi-Drug Resistant Organisms: None Reported Past Surgical History: Breast Surgery Additional Past Surgical History / Comment(s): lt masectomy Past Anesthesia/Blood Transfusion Reactions: No Reported Reaction Past Psychological History: No Psychological Hx Reported Smoking Status: Never smoker Past Alcohol Use History: None Reported Past Drug Use History: None Reported Medications and Allergies Home Medications Medication Instructions Recorded Confirmed Type Exemestane [Aromasin] 25 mg PO HS 07/17/22 07/25/22 History Ondansetron [Zofran] 4 mg PO Q4H PRN 07/17/22 07/25/22 History Everolimus 10 mg PO HS 07/25/22 07/25/22 History Fluticasone/Umeclidin/Vilanter 1 puff INHALATION RT-HS 07/25/22 07/25/22 History [Trelegy Ellipta 100-62.5-25] Allergies Allergy/AdvReac Type Severity Reaction Status Date / Time No Known Allergies Allergy Verified 07/25/22 13:14 Physical Exam Vitals: Vital Signs Pulse Resp BP Pulse Ox 07/25/22 12:30 117 H 28 H 133/78 96 Intake and Output 07/24/22 07/25/22 07/25/22 22:59 06:59 14:59 Other: Weight 37.195 kg In general patient is alert and oriented x 3 in no distress HEENT head normocephalic and atraumatic Neck is supple no JVD no goiter no lymphadenopathy no carotid bruit Chest examination reveals a scattered crackles bilaterally no wheezing Cardiac exam reveals regular heart sounds S1 and S2 no gallops no murmurs Abdomen is soft nontender no organomegaly with normal bowel sounds Extremity exam reveals no edema no cyanosis or clubbing Neurological examination reveals no gross focal deficits Results CBC & Chem 7: 07/25/22 12:33 07/25/22 12:33 Labs: Abnormal Lab Results - Last 24 Hours (Table) 07/25/22 07/25/22 Range/Units 12:33 12:33 Lymphocytes # 0.6 L (1.0-4.8) k/uL Sodium 135 L (137-145) mmol/L Chloride 96 L (98-107) mmol/L Creatinine 0.44 L (0.52-1.04) mg/dL Glucose 154 H (74-99) mg/dL AST 42 H (14-36) U/L Assessment and Plan Plan: Pneumothorax, status post pigtail catheter placement Right sided pleural effusion with thoracentesis today in the radiology department Underlying history of breast cancer Underlying history of osteoporosis At this time patient was seen and examined in emergency room Home medications reviewed and reordered Pulmonary consultation requested Recheck chest x-ray in a.m. For DVT prophylaxis subcu Lovenox Will follow closely
[2022-07-25] MEDS: IPRATROPIUM 0.5 MG/2.5 ML NEBU INHALATION SCH (20:56)
[2022-07-25] MEDS: IPRATROPIUM-ALBUTEROL 3 ML NEB INHALATION PRN (20:56)
[2022-07-25] MEDS: SYMBICORT 80-4.5 MCG INHALER INHALATION SCH (20:56)
[2022-07-25] MEDS ORDERED: EVEROLIMUS 10 MG PO SCH (21:00)
[2022-07-25] MEDS: ACETAMINOPHEN TAB 325 MG TAB PO PRN (21:16)
[2022-07-26 05:01] LABS: Appearance,BF Blood Tinged (Clear)
[2022-07-26] MEDS: ACETAMINOPHEN TAB 325 MG TAB PO PRN (06:26)
--- NOTE | 2022-07-26 07:36 | XR ---
EXAMINATION TYPE: XR chest 2V DATE OF EXAM: 07/26/2022 COMPARISON: 07/25/2022 INDICATION: Pneumothorax TECHNIQUE: Frontal and lateral views of the chest are obtained. FINDINGS: The heart size is normal. The pulmonary vasculature is normal. Loculated pneumothorax may be present at the right base. This has significantly diminished in size ov er the interval. Catheter is in place as at the right thoracic base. The left lung opacity is similar to comparison. Right lower lobe infiltrate appears to be present. Co nsider atelectasis or pneumonia. IMPRESSION: 1. Diminished loculated right basilar pneumothorax. 2. Right lower lobe infiltrate. Correlate for Atelectasis or pneumonia. 3. Small right pleural effusion may be present. 4. Left lung opacity similar to comparison.
[2022-07-26 07:47] LABS: Basophils % (A) 0 %; Eosinophils # (A) 0.1 k/uL (0-0.7); Eosinophils % (A) 1 %; HGB 12.4 gm/dL (11.4-16.0); Lymphocytes # (A) 0.4 k/uL (1.0-4.8); Lymphocytes % (A) 6 %; MCHC 33.5 g/dL (31.0-37.0); MCV 95.3 fL (80.0-100.0); Mean Platelet Volume 7.5; Monocytes # (A) 0.4 k/uL (0-1.0); Monocytes % (A) 5 %; Neutrophils # (A) 5.8 k/uL (1.3-7.7); Neutrophils % (A) 87 %; Platelet Count 265 k/uL (150-450); RBC 3.88 m/uL (3.80-5.40); RDW 14.3 % (11.5-15.5); WBC 6.7 k/uL (3.8-10.6)
[2022-07-26] MEDS: ENOXAPARIN 40 MG/0.4 ML SYRINGE SQ SCH (08:32)
[2022-07-26 08:33] LABS: ALT 24 U/L (4-34); AST 34 U/L (14-36); African American GFR (CKD) >90 (>60 ml/min/1.73 sqM); Albumin 3.3 g/dL (3.5-5.0); Alkaline Phosphatase 83 U/L (38-126); Anion Gap 4 mmol/L; Blood Urea Nitrogen 10 mg/dL (7-17); Calcium 8.4 mg/dL (8.4-10.2); Carbon Dioxide 34 mmol/L (22-30); Chloride 96 mmol/L (98-107); Glucose 102 mg/dL (74-99); Non-African American GFR(CKD) >90 (>60 ml/min/1.73 sqM); Potassium 3.8 mmol/L (3.5-5.1); Sodium 134 mmol/L (137-145); Total Bilirubin 0.5 mg/dL (0.2-1.3); Total Protein 6.2 g/dL (6.3-8.2)
[2022-07-26] MEDS: IPRATROPIUM 0.5 MG/2.5 ML NEBU INHALATION SCH ×4 (08:53→20:26)
[2022-07-26] MEDS: SYMBICORT 80-4.5 MCG INHALER INHALATION SCH ×2 (08:54→20:26)
--- NOTE | 2022-07-26 10:35 | P.PN ---
Subjective Progress Note Date: 07/26/22 Alice Boudreaux, is a 71-year-old female who presented to [facility] emergency room with a chief complaint of shortness of breath, patient underwent thoracentesis in the radiology department she started having shortness of breath chest x-ray revealed evidence of pneumothorax patient had a Pig-tail chest tube inserted and was sent to emergency room. She was evaluated in the emergency room vital examination on presentation revealed a pulse of 117 respiration 28 blood pressure 133/78 pulse ox 96% on room air Laboratory data revealed a white blood count of 5.0 hemoglobin 13.9 platelet c ount 320 sodium 135 potassium 4.2 chloride 96 CO2 30 BUN 11 creatinine 0.44 Testing in the emergency room revealed EKG was done in the emergency room and revealed sinus tachycardia and poor R-wave progression in the anterior leads Patient was admitted to medical floor for further evaluation and treatment Past medical history is significant for history of breast cancer, history of pleural effusion, history of osteoporosis On review of systems patient is alert and oriented 3 in no apparent distress, she is feeling better shortness of breath is improving there is no fever or chills no headache or dizziness no chest pain no cough no nausea or vomiting no abdominal pain no diarrhea no blood in the stools no burning with urination no frequency or urgency and no hematuria On 07/26/2022 patient is alert and oriented 3. She is feeling slightly better. Chest tube remains in place. Repeat chest x-ray has been ordered per pulmonary. Patient denies chest pain. Patient denies nausea vomiting or diarrhea. Patient denies any urinary burning or frequency. Current vital signs temp 96.7, heart rate 103, blood pressure 117/66 and pulse ox 98% on 3 L Objective - Vital Signs Vital signs: Vital Signs Temp 96.7 F L 07/26/22 08:19 Pulse 96 07/26/22 09:15 Resp 18 07/26/22 08:19 BP 117/66 07/26/22 08:19 Pulse Ox 95 07/26/22 08:56 FiO2 28 07/26/22 08:56 Intake & Output 07/25/22 07/26/22 07/26/22 18:59 06:59 18:59 Intake Total 1080 Output Total 60 40 Balance -60 1040 Weight 37.195 kg Intake: Oral 1080 Output: Chest Tube Drainage 60 40 Right Lateral Chest 60 40 Other: Voiding Method Toilet # Voids 1 - Exam In general patient is alert and oriented x 3 in no distress HEENT head normocephalic and atraumatic Neck is supple no JVD no goiter no lymphadenopathy no carotid bruit Chest examination reveals a scattered crackles bilaterally no wheezing Cardiac exam reveals regular heart sounds S1 and S2 no gallops no murmurs Abdomen is soft nontender no organomegaly with normal bowel sounds Extremity exam reveals no edema no cyanosis or clubbing Neurological examination reveals no gross focal deficits - Labs CBC & Chem 7: 07/26/22 07:27 07/26/22 07:22 Labs: Abnormal Lab Results - Last 24 Hours (Table) 07/25/22 07/25/22 07/25/22 Range/Units 10:20 12:33 12:33 Lymphocytes # 0.6 L (1.0-4.8) k/uL Sodium 135 L (137-145) mmol/L Chloride 96 L (98-107) mmol/L Carbon Dioxide (22-30) mmol/L Creatinine 0.44 L (0.52-1.04) mg/dL Glucose 154 H (74-99) mg/dL AST 42 H (14-36) U/L Total Protein (6.3-8.2) g/dL Albumin (3.5-5.0) g/dL Fluid Appearance Blood Tinged A (Clear) 07/26/22 07/26/22 Range/Units 07:22 07:27 Lymphocytes # 0.4 L (1.0-4.8) k/uL Sodium 134 L (137-145) mmol/L Chloride 96 L (98-107) mmol/L Carbon Dioxide 34 H (22-30) mmol/L Creatinine 0.42 L (0.52-1.04) mg/dL Glucose 102 H (74-99) mg/dL AST (14-36) U/L Total Protein 6.2 L (6.3-8.2) g/dL Albumin 3.3 L (3.5-5.0) g/dL Fluid Appearance (Clear) Assessment and Plan Plan: Pneumothorax, status post pigtail catheter placement Right sided pleural effusion with thoracentesis today in the radiology department Underlying history of breast cancer Underlying history of osteoporosis At this time patient was seen and examined in emergency room Home medications reviewed and reordered Pulmonary consultation requested Recheck chest x-ray in a.m. For DVT prophylaxis subcu Lovenox Will follow closely
--- NOTE | 2022-07-26 11:30 | P.CNPUL ---
History of Present Illness Consult date: 07/26/22 Requesting physician: Meghann Seth Reason for consult: dyspnea, hypoxemia, pleural effusion, lung mass, abnormal CXR/CT Chief complaint: Shortness of breath. History of present illness: Pulmonary consult dated 07/26/2022. 71-year-old female with history of metastatic breast cancer, who was to have an outpatient thoracentesis performed by interventional radiology. After the procedure, on the right chest, the patient developed a pneumothorax, and a small chest tube was inserted, by interventional radiology, and the patient was sent to the emergency room to be evaluated and admitted. Currently, she is resting comfortably in room 359. She does have a history of breast cancer, which is me tastatic to the lung. She's currently on 2 L. She's getting saline at 20 mL an hour. Her medical oncologist is Dr. Romero. The patient's post chest tube x-ray, shows reexpansion of the right lung, and she did not have a leak, as noted on her Pleur-evac. Likely, we will check another x-ray in the morning, and if it is stable, without a leak, we will pull the chest tube, and send her home. Her medical history is mostly positive for the metastatic breast cancer. She is a lifelong nonsmoker. White count 6.7, hemoglobin 12.4, hematocrit 37, and platelet count 265,000. Sodium 134, potassium 3.8, chlorides 96, CO2 34, BUN 10, creatinine 0.42. Review of Systems REVIEW OF SYSTEMS: CONSTITUTIONAL: [Negative.] NEUROLOGIC: [ Negative.] HEENT: [ Negative.] CARDIAC: [Negative.] PULMONARY: Progressive shortness of breath. GI: [Negative.] : [Negative.] RHEUMATOLOGIC: [ Negative.] IMMUNOLOGIC: [ Negative.] ENDOCRINE: [Negative. ] DERMATOLOGIC: [Negative.] Past Medical History Past Medical History: Cancer Additional Past Medical History / Comment(s): breast ca, lung CA History of Any Multi-Drug Resistant Organisms: None Reported Past Surgical History: Breast Surgery Additional Past Surgical History / Comment(s): lt masectomy Past Anesthesia/Blood Transfusion Reactions: No Reported Reaction Past Psychological History: No Psychological Hx Reported Smoking Status: Never smoker Past Alcohol Use History: None Reported Past Drug Use History: None Reported Medications and Allergies Home Medications Medication Instructions Recorded Confirmed Type Exemestane [Aromasin] 25 mg PO HS 07/17/22 07/25/22 History Ondansetron [Zofran] 4 mg PO Q4H PRN 07/17/22 07/25/22 History Everolimus 10 mg PO HS 07/25/22 07/25/22 History Fluticasone/Umeclidin/Vilanter 1 puff INHALATION RT-HS 07/25/22 07/25/22 History [Yuri Ellipta 100-62.5-25] Allergies Allergy/AdvReac Type Severity Reaction Status Date / Time No Known Allergies Allergy Verified 07/25/22 13:14 Physical Exam Osteopathic Statement: *. No significant issues noted on an osteopathic structural exam other than those noted in the History and Physical/Consult. Vitals: Vital Signs Temp Pulse Pulse Resp BP BP Pulse Ox 07/26/22 11:18 97.7 F 105 H 18 120/58 94 L 07/26/22 09:15 96 07/26/22 08:56 98 95 07/26/22 08:19 96.7 F L 103 H 18 117/66 98 07/26/22 04:00 97.9 F 113 H 19 132/81 95 07/26/22 00:00 98.2 F 107 H 19 122/82 97 07/25/22 21:10 100 07/25/22 20:59 100 07/25/22 20:00 97.9 F 112 H 19 116/75 98 07/25/22 18:38 98.2 F 111 H 18 133/70 97 07/25/22 17:57 117 H 20 115/76 98 07/25/22 17:00 115 H 18 132/82 96 07/25/22 16:00 112 H 16 132/82 97 07/25/22 15:41 116 H 12 132/82 98 07/25/22 15:00 93 12 134/92 100 07/25/22 14:00 113 H 16 134/92 97 07/25/22 13:30 105 H 15 96 07/25/22 13:00 111 H 12 96 07/25/22 12:30 116 H 20 133/78 96 07/25/22 12:21 121 H 20 96 FiO2 07/26/22 11:18 07/26/22 09:15 07/26/22 08:56 28 07/26/22 08:19 07/26/22 04:00 07/26/22 00:00 07/25/22 21:10 07/25/22 20:59 07/25/22 20:00 07/25/22 18:38 07/25/22 17:57 07/25/22 17:00 07/25/22 16:00 07/25/22 15:41 07/25/22 15:00 07/25/22 14:00 07/25/22 13:30 07/25/22 13:00 07/25/22 12:30 07/25/22 12:21 Intake and Output 07/25/22 07/26/22 07/26/22 22:59 06:59 14:59 Intake Total 1080 Output Total 60 40 Balance -60 1040 Intake: Oral 1080 Output: Chest Tube Drainage 60 40 Right Lateral Chest 60 40 Other: Voiding Method Toilet Toilet Toilet # Voids 1 1 No acute distress, oriented 3. No use of accessory muscles or conversational dyspnea. Currently on 2 L of oxygen. HEENT examination is grossly unremarkable. Neck supple. Full range of motion. No adenopathy thyromegaly or neck vein distention. Cardiovascular examination reveals regular rhythm rate. S1-S2 normal. No S3 or S4. No discernible murmur noted. Heart rate 100 bpm. Lungs reveal scattered rhonchi bilaterally. Diminished breath sounds on the left. Minimal basilar crackles. No wheezes. 2 L saturation is 94%. Abdomen soft bowel sounds are heard. No masses or tenderness. Extremities are intact. No cyanosis clubbing or edema. Skin is without rash or lesion. Neurologic examination is brief but nonfocal. Results - Laboratory Findings CBC and BMP: 07/26/22 07:27 07/26/22 07:22 Abnormal lab findings: Abnormal Labs 07/25/22 07/25/22 07/25/22 10:20 12:33 12:33 Lymphocytes # 0.6 L Sodium 135 L Chloride 96 L Carbon Dioxide Creatinine 0.44 L Glucose 154 H AST 42 H Total Protein Albumin Fluid Appearance Blood Tinged A 07/26/22 07/26/22 07:22 07:27 Lymphocytes # 0.4 L Sodium 134 L Chloride 96 L Carbon Dioxide 34 H Creatinine 0.42 L Glucose 102 H AST Total Protein 6.2 L Albumin 3.3 L Fluid Appearance - Diagnostic Findings Chest x-ray: image reviewed Assessment and Plan Assessment: Metastatic breast cancer, with probable metastatic pleural effusion, S/P right thoracentesis, with subsequent pneumothorax, and small bore chest tube insertion. History of breast cancer, S/P left mastectomy. Plan: Plan dated 07/26/2022. The patient is seen, interviewed, and examined, in room 359. She has a small bore chest tube in the right pleural space. The right lung is fully expanded. There appears not to be any leak. The patient will have a follow-up chest x-ray tomorrow. If everything looks good, the tube will be removed, and the patient could be discharged home. No additional recommendations are made. 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 Time with Patient: Greater than 30
[2022-07-26 11:35] VITALS: BMI 17.7
[2022-07-26] MEDS: ONDANSETRON 4 MG TAB PO PRN ×2 (12:40→16:52)
[2022-07-26] MEDS: EVEROLIMUS 10 MG PO SCH (17:01)
[2022-07-26] MEDS: EXEMESTANE 25 MG PO SCH (17:01)
[2022-07-27] MEDS: ENOXAPARIN 40 MG/0.4 ML SYRINGE SQ SCH (07:52)
[2022-07-27 07:55] VITALS: TEMP 97.6
--- NOTE | 2022-07-27 08:12 | XR ---
EXAMINATION TYPE: XR chest 1V portable DATE OF EXAM: 07/27/2022 7:50 AM COMPARISON: Chest radiographs from 07/26/2022. TECHNIQUE: XR chest 1V portable Frontal view of the chest. CLINICAL INDICATION:Female, 71 years old with history of Right pneumothorax; FINDINGS: Lungs/Pleura: Similar dilation of the left lung with large pleural effusion. Pulmonary vascularity: Unremarkable. Heart/mediastinum: Cardiomediastinal silhouette is obscured due to overlying and adjacent opacities. Musculoskeletal: No acute osseous pathology. Other findings: None Lines/Tubes: Interval removal of right thoracotomy tubing from prior. There remains right pleural effusion. There is a trace pneumothorax. IMPRESSION: 1. Interval removal of right thoracotomy tubing from prior. There remains right pleural effusion. Th ere is a trace pneumothorax. 2. Similar aeration of the left lung with large left pneumothorax.
[2022-07-27] MEDS: IPRATROPIUM 0.5 MG/2.5 ML NEBU INHALATION SCH ×3 (08:47→16:29)
[2022-07-27] MEDS: IPRATROPIUM-ALBUTEROL 3 ML NEB INHALATION PRN ×3 (08:47→16:29)
[2022-07-27] MEDS: SYMBICORT 80-4.5 MCG INHALER INHALATION SCH (08:47)
--- NOTE | 2022-07-27 10:35 | P.PN ---
Subjective Progress Note Date: 07/27/22 Principal diagnosis: Pneumothorax. Pulmonary consult dated 07/26/2022. 71-year-old female with history of metastatic breast cancer, who was to have an outpatient thoracentesis performed by interventional radiology. After the procedure, on the right chest, the patient developed a pneumothorax, and a small chest tube was inserted, by interventional radiology, and the patient was sent to the emergency room to be evaluated and admitted. Currently, she is resting comfortably in room 359. She does have a history of breast cancer, which is metastatic to the lung. She's currently on 2 L. She's getting saline at 20 mL an hour. Her medical oncologist is Dr. Romero. The patient's post chest tube x- ray, shows reexpansion of the right lung, and she did not have a leak, as noted on her Pleur-evac. Likely, we will check another x-ray in the morning, and if it is stable, without a leak, we will pull the chest tube, and send her home. Her medical history is mostly positive for the metastatic breast cancer. She is a lifelong nonsmoker. White count 6.7, hemoglobin 12.4, hematocrit 37, and platelet count 265,000. Sodium 134, potassium 3.8, chlorides 96, CO2 34, BUN 10, creatinine 0.42. Progress note dated 07/27/2022. 71-year-old female with history of metastatic breast cancer, who apparently came to the outpatient setting for a thoracentesis, on the right side, to be performed by interventional radiology. Subsequent to the thoracentesis, the patient developed a pneumothorax, and a small bore chest tube was placed by interventional radiology. We are consulted. The patient was seen yesterday. Apparently the patient got up to go to the bathroom today, and the chest tube came out. A chest x-ray revealed possibly a small pneumothorax on the right side. The patient's on 2 L. She's not having any respiratory distress. The patient could likely go home today. No new labs today. Chest x-ray is reviewed. Objective - Vital Signs Vital signs: Vital Signs Temp 97.6 F 07/27/22 07:46 Pulse 120 H 07/27/22 09:02 Resp 18 07/27/22 07:46 BP 127/74 07/27/22 07:46 Pulse Ox 93 L 07/27/22 08:49 FiO2 28 07/26/22 08:56 Intake & Output 07/26/22 07/27/22 07/27/22 18:59 06:59 18:59 Intake Total 1794 Output Total 58 0 Balance 1736 0 Weight 36.2 kg Intake: Oral 1794 Output: Chest Tube Drainage 58 0 Right Lateral Chest 58 0 Other: Voiding Method Toilet Toilet Bedside Commode # Voids 2 1 1 # Bowel Movements 1 1 - Exam No acute distress, oriented 3. No use of accessory muscles or conversational dyspnea. Currently on 2 L of oxygen. HEENT examination is grossly unremarkable. Neck supple. Full range of motion. No adenopathy thyromegaly or neck vein distention. Cardiovascular examination reveals regular rhythm rate. S1-S2 normal. No S3 or S4. No discernible murmur noted. Heart rate 99 bpm. Lungs reveal scattered rhonchi bilaterally. Diminished breath sounds on the left. Minimal basilar crackles. No wheezes. 2 L saturation is 93 %. Abdomen soft bowel sounds are heard. No masses or tenderness. Extremities are intact. No cyanosis clubbing or edema. Skin is without rash or lesion. Neurologic examination is brief but nonfocal. - Labs CBC & Chem 7: 07/26/22 07:27 07/26/22 07:22 Labs: Abnormal Lab Results - Last 24 Hours (Table) 07/26/22 Range/Units 07:27 Procalcitonin 0.10 H (0.02-0.09) ng/mL Microbiology - Last 24 Hours (Table) 07/25/22 10:20 Body Fluid Culture - Preliminary Pleural Fluid Assessment and Plan Assessment: Metastatic breast cancer, with probable metastatic pleural effusion, S/P right thoracentesis, with subsequent pneumothorax, and small bore chest tube insertion. History of breast cancer, S/P left mastectomy. Plan: Plan dated 07/26/2022. The patient is seen, interviewed, and examined, in room 359. She has a small bore chest tube in the right pleural space. The right lung is fully expanded. There appears not to be any leak. The patient will have a follow-up chest x-ray tomorrow. If everything looks good, the tube will be removed, and the patient could be discharged home. No additional recommendations are made. 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 Plan dated 07/27/2022. The plan today was to remove the chest tube, and a subsequent x-ray, and potentially send the patient home. The patient small bore chest tube fell out when she got up to go to the bathroom. The patient is not having any respiratory distress. The chest x-ray looks very stable, although there may be residual small right apical pneumothorax. From our perspective, the patient could be discharged home. The patient will need to be assessed for home oxygen. She should have a bone marrow resting saturation, and a saturation on room air while exerting herself, i.e. walking up and down the hallway. Should she desaturate, the patient should be discharged home, with oxygen therapy. We would be glad to see her in the office. Time with Patient: Less than 30
--- NOTE | 2022-07-27 11:30 | P.DS ---
Providers Date of admission: 07/25/22 14:08 Expected date of discharge: 07/27/22 Attending physician: Meghann Seth Consults: 07/25/22 14:08 Consult Physician Urgent Consulting Provider: German Doherty Consult Reason/Comments: Pneumothorax, history of metastatic lung cancer Do you want consulting provider notified?: Yes Primary care physician: Sangita Knight [place] [facility] Course: Diagnosis on discharge: Pneumothorax, status post pigtail catheter placement Right sided pleural effusion with thoracentesis today in the radiology department Underlying history of breast cancer Underlying history of osteoporosis Hypoxemia, patient qualifies for home oxygen Hospital course: Alice Boudreaux, is a 71-year-old female who presented to [facility] emergency room with a chief complaint of shortness of breath, patient underwent thoracentesis in the radiology department she started having shortness of breath chest x-ray revealed evidence of pneumothorax patient had a Pig-tail chest tube inserted and was sent to emergency room. She was evaluated in the emergency room vital examination on presentation re vealed a pulse of 117 respiration 28 blood pressure 133/78 pulse ox 96% on room air Laboratory data revealed a white blood count of 5.0 hemoglobin 13.9 platelet count 320 sodium 135 potassium 4.2 chloride 96 CO2 30 BUN 11 creatinine 0.44 Testing in the emergency room revealed EKG was done in the emergency room and revealed sinus tachycardia and poor R-wave progression in the anterior leads Patient was admitted to medical floor for further evaluation and treatment Past medical history is significant for history of breast cancer, history of pleural effusion, history of osteoporosis On review of systems patient is alert and oriented 3 in no apparent distress, she is feeling better shortness of breath is improving there is no fever or chills no headache or dizziness no chest pain no cough no nausea or vomiting no abdominal pain no diarrhea no blood in the stools no burning with urination no frequency or urgency and no hematuria On 07/26/2022 patient is alert and oriented 3. She is feeling slightly better. Chest tube remains in place. Repeat chest x-ray has been ordered per pulmonary. Patient denies chest pain. Patient denies nausea vomiting or diarrhea. Patient denies any urinary burning or frequency. Current vital signs temp 96.7, heart rate 103, blood pressure 117/66 and pulse ox 98% on 3 L On 07/27/2022 patient was seen and examined on the telemetry floor she is alert and oriented 3 in no apparent distress there is no fever or chills no headache or dizziness no chest pain no shortness of breath at rest no cough no nausea or vomiting no abdominal pain no diarrhea no blood in the stools no burning with urination no frequency or urgency and no hematuria, chest tube fell off today, patient was evaluated by pulmonary and was cleared for discharge. Patient has hypoxemia with minimal ambulation, she qualifies for home oxygen. Plan - Discharge Summary Discharge Rx Participant: Yes New Discharge Prescriptions: Continue Exemestane [Aromasin] 25 mg PO HS Ondansetron [Zofran] 4 mg PO Q4H PRN PRN Reason: Nausea Everolimus 10 mg PO HS Fluticasone/Umeclidin/Vilanter [Trelegy Ellipta 100-62.5-25] 1 puff INHALATION RT-HS Discharge Medication List Exemestane [Aromasin] 25 mg PO HS 07/17/22 [History] Ondansetron [Zofran] 4 mg PO Q4H PRN 07/17/22 [History] Everolimus 10 mg PO HS 07/25/22 [History] Fluticasone/Umeclidin/Vilanter [Trelegy Ellipta 100-62.5-25] 1 puff INHALATION RT-HS 07/25/22 [History] Follow up Appointment(s)/Referral(s): Sangita Knight MD [Primary Care Provider] - 1-2 days
[2022-07-27 11:47] VITALS: BP 124/67; RESP 20
[2022-07-27] MEDS: ONDANSETRON 4 MG TAB PO PRN ×2 (14:43→18:39)
[2022-07-27 16:40] VITALS: PULSE 122
[2022-07-27] MEDS: EVEROLIMUS 10 MG PO SCH (18:38)
[2022-07-27] MEDS: EXEMESTANE 25 MG PO SCH (18:38)
== END 2022-07-27 19:45 | disposition home or self-care (01) | DRG 200 ==
LOC: EC 12:17 → 3SCARD 14:08
PROVIDERS: ADMIT Internal Medicine; ATTEND Internal Medicine
DX: J95.811 Postprocedural pneumothorax (principal); C79.9 Secondary malignant neoplasm of unspecified site; J91.0 Malignant pleural effusion; C50.919 Malignant neoplasm of unspecified site of unspecified female breast; Z85.118 Personal history of other malignant neoplasm of bronchus and lung; Z85.3 Personal history of malignant neoplasm of breast; M81.0 Age-related osteoporosis without current pathological fracture; R09.02 Hypoxemia; Z90.12 Acquired absence of left breast and nipple
CPT/HCPCS: 36415; 71045; 71046; 80053; 83735; 84145; 85025; 87070; 87075; 87205; 89050; 93005; 94640; 94760; 96360; 96361; 99285

== ENCOUNTER 2022-08-02 07:30 | Inpatient (IN) | payer MEDICARE, BC ==
[2022-08-02] MEDS ORDERED: methylPREDNISolone SOD SUCCI 125 MG/2 ML VIAL IV STA (07:50)
[2022-08-02] MEDS ORDERED: IPRATROPIUM-ALBUTEROL 3 ML NEB INHALATION STA (07:50)
--- NOTE | 2022-08-02 08:21 | ED ---
SOB HPI - General Chief Complaint: Shortness of Breath Stated Complaint: IVAN Time Seen by Provider: 08/02/22 07:40 Source: patient, RN notes reviewed Mode of arrival: ambulatory Limitations: no limitations - History of Present Illness Initial Comments: 71-year-old female presents emergency Department chief complaint shortness of breath. Patient had a recent admission after thoracentesis and having pneumothorax. Patient states she was discharged on Friday she states she's been having increasing congestion, shortness breath, wheezing. She states she is very fatigued. 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 Patient does have underlying metastatic lung cancer. Patient states she does not feel like this is related to recurrence of the fluid she states she feels like she is more sick and states that the wheezing and his brother. She does not that she is very weak, has increasing shortness breath with exertion denies any chest pain she does feel like her heart has been racing. - Related Data Home Medications Medication Instructions Recorded Confirmed Exemestane [Aromasin] 25 mg PO HS 07/17/22 08/02/22 Ondansetron [Zofran] 4 mg PO Q4H PRN 07/17/22 08/02/22 Everolimus 10 mg PO HS 07/25/22 08/02/22 Fluticasone/Umeclidin/Vilanter 1 puff INHALATION RT-HS 07/25/22 08/02/22 [Trelegy Ellipta 100-62.5-25] LORazepam [Ativan] 0.25 - 0.5 mg PO Q6H PRN 08/02/22 08/02/22 Allergies Allergy/AdvReac Type Severity Reaction Status Date / Time No Known Allergies Allergy Verified 08/02/22 10:44 Review of Systems ROS Statement: Those systems with pertinent positive or pertinent negative responses have been documented in the HPI. ROS Other: All systems not noted in ROS Statement are negative. Past Medical History Past Medical History: Cancer Additional Past Medical History / Comment(s): breast ca, lung CA History of Any Multi-Drug Resistant Organisms: None Reported Past Surgical History: Breast Surgery Additional Past Surgical History / Comment(s): lt masectomy Past Anesthesia/Blood Transfusion Reactions: No Reported Reaction Past Psychological History: No Psychological Hx Reported Smoking Status: Never smoker Past Alcohol Use History: None Reported Past Drug Use History: None Reported General Exam Limitations: no limitations General appearance: alert, in distress, cachectic Head exam: Present: atraumatic, normocephalic, normal inspection Eye exam: Present: normal appearance, PERRL, EOMI. Absent: scleral icterus, conjunctival injection, periorbital swelling ENT exam: Present: normal exam, mucous membranes moist Neck exam: Present: normal inspection. Absent: tenderness, meningismus, lymphadenopathy Respiratory exam: Present: respiratory distress, wheezes, rhonchi. Absent: normal lung sounds bilaterally, rales, stridor Cardiovascular Exam: Present: normal rhythm, tachycardia, normal heart sounds. Absent: systolic murmur, diastolic murmur, rubs, gallop, clicks GI/Abdominal exam: Present: soft, normal bowel sounds. Absent: distended, tenderness, guarding, rebound, rigid Neurological exam: Present: alert, oriented X3 Skin exam: Present: warm, dry, intact, normal color. Absent: rash Course Vital Signs 08/02/22 08/02/22 08/02/22 07:32 08:00 08:13 Temperature 97.8 F Pulse Rate 117 H 112 H 107 H Respiratory 22 Rate Blood Pressure 129/84 O2 Sat by Pulse 95 Oximetry 08/02/22 08/02/22 08/02/22 08:24 08:34 08:47 Temperature Pulse Rate 119 H 107 H Respiratory 30 H 32 H Rate Blood Pressure 134/73 O2 Sat by Pulse 97 Oximetry 08/02/22 08/02/22 08/02/22 10:40 11:19 11:31 Temperature Pulse Rate 93 118 H 120 H Respiratory 28 H Rate Blood Pressure 130/59 O2 Sat by Pulse 92 L Oximetry Medical Decision Making - Medical Decision Making Was pt. sent in by a medical professional or institution (, PA, NURSERY LABORER, urgent care, hospital, or [facility]...) When possible be specific @ -No Did you speak to anyone other than the patient for history (EMS, parent, family, police, friend...)? What history was obtained from this source @ - the room providing sniffing past medical history Did you review nursing and triage notes (agree or disagree)? Why? @ -I reviewed and agree with nursing and triage notes Were old charts reviewed (outside hosp., previous admission, EMS record, old EKG, old radiological studies, urgent care reports/EKG's, [facility] records)? Report findings @ -Reviewed recent admission, temperature studies, consults Differential Diagnosis (chest pain, altered mental status, abdominal pain women, abdominal pain men, vaginal bleeding, weakness, fever, dyspnea, syncope, headache, dizziness, GI bleed, back pain, seizure, CVA, palpatations, mental health, musculoskeletal)? @ -Differential Dyspnea: Coronary syndrome, arrhythmia, tamponade, asthma, COPD, pulmonary embolism, pneumonia, pneumothorax, pulmonary effusion, anaphylaxis, diabetic ketoacidosis, flailed chest, pulmonary contusion, diaphragmatic rupture, anemia, neuromuscular, this is not meant to be an all-inclusive list. EKG interpreted by me (3pts min.). @ -As above X-rays interpreted by me (1pt min.). @ -Chest x-ray shows evidence of mild pneumothorax, lung mass, infiltrate CT interpreted by me (1pt min.). @ -None done U/S interpreted by me (1pt. min.). @ -None done What testing was considered but not performed or refused? (CT, X-rays, U/S, labs)? Why? @ -None What meds were considered but not given or refused? Why? @ -None Did you discuss the management of the patient with other professionals (professionals i.e. , PA, NURSERY LABORER, lab, RT, psych nurse, social science research assistant, accounts payable bookkeeper, teacher, articulation officer, case mgr)? Give summary @ -[Discuss case with Dr. tarango who admitted the patient for further treatment and management patient consults to pulmonary, oncology. Was smoking cessation discussed for >3mins.? @ -No Was critical care preformed (if so, how long)? @ -No Were there social determinants of health that impacted care today? How? (Homelessness, low income, unemployed, alcoholism, drug addiction, transportation, low edu. Level, literacy, decrease access to med. care, halfway, rehab)? @ -No Was there de-escalation of care discussed even if they declined (Discuss DNR or withdrawal of care, Hospice)? DNR status @ -There was discussion of her CODE STATUS that she is a full code at this time. Discussed case possible hospice evaluation What co-morbidities impacted this encounter? (DM, HTN, Smoking, COPD, CAD, Cancer, CVA, ARF, Chemo, Hep., AIDS, mental health diagnosis, sleep apnea, morbid obesity)? @ -None Was patient admitted / discharged? Hospital course, mention meds given and route, prescriptions, significant lab abnormalities, going to OR and other pertinent info. @ -[Admitted patient has severe metastatic lung cancer with noted infiltrate, pneumothorax. Patient will be admitted with guarded prognosis. Patient's does have consults to oncology, pulmonary. Patient was given Rocephin, azithromycin. Patient was recently started on Ativan which is made patient more confused, more lethargic Undiagnosed new problem with uncertain prognosis? @ -No Drug Therapy requiring intensive monitoring for toxicity (Heparin, Nitro, Insulin, Cardizem)? @ -No Were any procedures done? @ -No Diagnosis/symptom? @ -Lung cancer, pneumonia, respiratory distress Acute, or Chronic, or Acute on Chronic? @ -Acute Uncomplicated (without systemic symptoms) or Complicated (systemic symptoms)? @ -complicated Side effects of treatment? @ -No Exacerbation, Progression, or Severe Exacerbation? @ -No Poses a threat to life or bodily function? How? (Chest pain, [place], [place], pneumonia, PE, COPD, DKA, ARF, appy, cholecystitis, CVA, Diverticulitis, Homicidal, Suicidal, threat to staff... and all critical care pts) @ -[Yes patient has cancer, respiratory distress - Lab Data Result diagrams: 08/02/22 07:55 08/02/22 07:55 Lab Results 08/02/22 08/02/22 08/02/22 Range/Units 07:55 07:55 07:55 WBC 6.3 (3.8-10.6) k/uL RBC 4.12 (3.80-5.40) m/uL Hgb 12.9 (11.4-16.0) gm/dL Hct 39.2 (34.0-46.0) % MCV 95.2 (80.0-100.0) fL MCH 31.2 (25.0-35.0) pg MCHC 32.8 (31.0-37.0) g/dL RDW 14.1 (11.5-15.5) % Plt Count 353 (150-450) k/uL MPV 7.3 Neutrophils % 91 % Lymphocytes % 3 % Monocytes % 3 % Eosinophils % 3 % Basophils % 0 % Neutrophils # 5.8 (1.3-7.7) k/uL Lymphocytes # 0.2 L (1.0-4.8) k/uL Monocytes # 0.2 (0-1.0) k/uL Eosinophils # 0.2 (0-0.7) k/uL Basophils # 0.0 (0-0.2) k/uL PT 10.0 (9.0-12.0) sec INR 0.9 (<1.2) APTT 22.0 (22.0-30.0) sec Sodium 133 L (137-145) mmol/L Potassium 4.8 (3.5-5.1) mmol/L Chloride 90 L (98-107) mmol/L Carbon Dioxide 36 H (22-30) mmol/L Anion Gap 7 mmol/L BUN 13 (7-17) mg/dL Creatinine 0.36 L (0.52-1.04) mg/dL Est GFR (CKD-EPI)AfAm >90 (>60 ml/min/1.73 sqM) Est GFR (CKD-EPI)NonAf >90 (>60 ml/min/1.73 sqM) Glucose 112 H (74-99) mg/dL Plasma Lactic Acid Patrick (0.7-2.0) mmol/L Calcium 8.9 (8.4-10.2) mg/dL Magnesium 2.0 (1.6-2.3) mg/dL Total Bilirubin 0.4 (0.2-1.3) mg/dL AST 37 H (14-36) U/L ALT 32 (4-34) U/L Alkaline Phosphatase 88 (38-126) U/L Troponin I (0.000-0.034) ng/mL NT-Pro-B Natriuret Pep pg/mL Total Protein 6.7 (6.3-8.2) g/dL Albumin 3.7 (3.5-5.0) g/dL 08/02/22 08/02/22 08/02/22 Range/Units 07:55 07:55 07:55 WBC (3.8-10.6) k/uL RBC (3.80-5.40) m/uL Hgb (11.4-16.0) gm/dL Hct (34.0-46.0) % MCV (80.0-100.0) fL MCH (25.0-35.0) pg MCHC (31.0-37.0) g/dL RDW (11.5-15.5) % Plt Count (150-450) k/uL MPV Neutrophils % % Lymphocytes % % Monocytes % % Eosinophils % % Basophils % % Neutrophils # (1.3-7.7) k/uL Lymphocytes # (1.0-4.8) k/uL Monocytes # (0-1.0) k/uL Eosinophils # (0-0.7) k/uL Basophils # (0-0.2) k/uL PT (9.0-12.0) sec INR (<1.2) APTT (22.0-30.0) sec Sodium (137-145) mmol/L Potassium (3.5-5.1) mmol/L Chloride (98-107) mmol/L Carbon Dioxide (22-30) mmol/L Anion Gap mmol/L BUN (7-17) mg/dL Creatinine (0.52-1.04) mg/dL Est GFR (CKD-EPI)AfAm (>60 ml/min/1.73 sqM) Est GFR (CKD-EPI)NonAf (>60 ml/min/1.73 sqM) Glucose (74-99) mg/dL Plasma Lactic Acid Patrick 1.2 (0.7-2.0) mmol/L Calcium (8.4-10.2) mg/dL Magnesium (1.6-2.3) mg/dL Total Bilirubin (0.2-1.3) mg/dL AST (14-36) U/L ALT (4-34) U/L Alkaline Phosphatase (38-126) U/L Troponin I 0.020 (0.000-0.034) ng/mL NT-Pro-B Natriuret Pep 1620 pg/mL Total Protein (6.3-8.2) g/dL Albumin (3.5-5.0) g/dL - EKG Data -: EKG Interpreted by Me EKG Comments: EKG performed at 7:50 sinus tachycardia rate of 104 OH 126 QRS 105 QT/QTC 3:30/3 90 Disposition Clinical Impression: Pneumothorax, Pneumonia, Respiratory distress, Metastatic lung cancer (metastasis from lung to other site) Disposition: ADMITTED IP TO THIS [facility] Condition: Poor Time of Disposition: 09:38
[2022-08-02 08:29] LABS: Basophils % (A) 0 %; Eosinophils # (A) 0.2 k/uL (0-0.7); Eosinophils % (A) 3 %; HCT 39.2 % (34.0-46.0); HGB 12.9 gm/dL (11.4-16.0); Lymphocytes # (A) 0.2 k/uL (1.0-4.8); Lymphocytes % (A) 3 %; MCH 31.2 pg (25.0-35.0); MCHC 32.8 g/dL (31.0-37.0); MCV 95.2 fL (80.0-100.0); Mean Platelet Volume 7.3; Monocytes # (A) 0.2 k/uL (0-1.0); Monocytes % (A) 3 %; Neutrophils # (A) 5.8 k/uL (1.3-7.7); Neutrophils % (A) 91 %; Platelet Count 353 k/uL (150-450); RBC 4.12 m/uL (3.80-5.40); RDW 14.1 % (11.5-15.5); WBC 6.3 k/uL (3.8-10.6)
[2022-08-02 08:44] LABS: ALT 32 U/L (4-34); AST 37 U/L (14-36); African American GFR (CKD) >90 (>60 ml/min/1.73 sqM); Albumin 3.7 g/dL (3.5-5.0); Alkaline Phosphatase 88 U/L (38-126); Blood Urea Nitrogen 13 mg/dL (7-17); Calcium 8.9 mg/dL (8.4-10.2); Chloride 90 mmol/L (98-107); Glucose 112 mg/dL (74-99); Non-African American GFR(CKD) >90 (>60 ml/min/1.73 sqM); Potassium 4.8 mmol/L (3.5-5.1); Sodium 133 mmol/L (137-145); Total Bilirubin 0.4 mg/dL (0.2-1.3); Total Protein 6.7 g/dL (6.3-8.2)
--- NOTE | 2022-08-02 08:49 | XR ---
EXAMINATION TYPE: XR chest 1V portable DATE OF EXAM: 08/02/2022 HISTORY: Shortness of breath. Follow-up pneumothorax COMPARISON: 07/27/2022 TECHNIQUE: Single view of the chest is submitted. FINDINGS: Right-sided pneumothorax is redemonstrated and appears very slightly larger in size relative to the p rior study with apical pleural distance of 19 mm versus 14 mm previously. Near complete opacification left hemithorax with the aerated central lung unchanged. Right basilar in creased density persists which is felt to reflect a combination of infiltrate and atelectasis with ef fusion. The heart is stable. Hilar and mediastinal structures are within normal limits. Degenerative changes are seen of the dorsal spine. IMPRESSION: 1. Right-sided pneumothorax is redemonstrated and appears very slightly larger in size relative to t he prior study with apical pleural distance of 19 mm versus 14 mm previously. 2.Right basilar increased density persists which is felt to reflect a combination of infiltrate and a telectasis with effusion.
[2022-08-02 08:51] LABS: Anion Gap 7 mmol/L
[2022-08-02 09:04] LABS: Carbon Dioxide 36 mmol/L (22-30)
[2022-08-02 09:07] LABS: INR 0.9 (<1.2)
[2022-08-02] MEDS ORDERED: AZITHROMYCIN 500 MG in SODIUM CHLORIDE 0.9% 250 ML IVPB STA (09:21)
[2022-08-02] MEDS ORDERED: PNEUMONIA PROTOCOL UTILIZED 1 EACH MISC PO PRN (09:38)
[2022-08-02] MEDS ORDERED: ALBUTEROL NEBULIZED 2.5 MG/3 ML INHALATION PRN (09:38)
[2022-08-02] MEDS: IPRATROPIUM-ALBUTEROL 3 ML NEB INHALATION SCH ×3 (11:19→21:30)
[2022-08-02 12:32] LABS: ABG PCO2 64 mmHg (35-45); ABG PH 7.39 (7.35-7.45); ABG PO2 71 mmHg (83-108); Allen Test Performed? Yes
[2022-08-02 12:33] LABS: ABG Base Excess 13.4 mmol/L; ABG HCO3 39 mmol/L (21-25); ABG Oxygen Saturation 95.1 % (94-97); ABG TCO2 40 mmol/L (19-24)
[2022-08-02] MEDS ORDERED: RX INFO: IV CONTRAST WAS GIVEN 1 EACH MISC MISCELLANE PRN (12:34)
[2022-08-02] MEDS ORDERED: ONDANSETRON 4 MG TAB PO PRN (12:43)
--- NOTE | 2022-08-02 13:36 | CT ---
EXAMINATION TYPE: CT chest w con DATE OF EXAM: 08/02/2022 COMPARISON: 06/06/2022 HISTORY: 71-year-old female lung mass TECHNIQUE: Contiguous axial scanning of the chest after the administration of 80 mL of Isovue 300. C oronal/sagittal reconstructions performed. CT DLP: 173.2mGycm. Automatic exposure control utilized for a dose reduction. FINDINGS: Heart is upper limits of normal in size without pericardial effusion. Extensive three-vessel coronary calcifications are noted. Mild atherosclerotic arch calcifications with conventional arch vessel branching anatomy. Large caliber to the main right and left pulmonary arteries measuring up to 2.7 cm may reflect underl roger pulmonary hypertension. No thoracic lymphadenopathy identified. There is ongoing moderate-sized right-sided pneumothorax, mostly nondependent along the anterior and basilar aspect of the lung. There is associated moderate pleural effusion with near-complete collapse of the basilar right lower lobe. Loculated pleural effusion along the right midlung major fissure measuring up to 9.1 cm. These effusi ons have increased. Pleural studding is noted incidentally throughout especially towards the lower lungs. There is more m asslike nodularity measuring up to 3.4 cm along the medial right basilar parietal pleura. Significant asymmetric volume loss left hemithorax with diffuse pleural thickening and near complete consolidation/volume loss throughout the left lung. A moderate effusion here as well has enlarged wit h progressive volume loss of the aerated portion of the basilar right lower lobe. Left breast reconstruction. Visualized upper abdomen is limited by motion and artifact from the patient's arms being down. Mild generalized anasarca change. Bones: Mild vertebral body height loss at T7 is unchanged. IMPRESSION: 1. Right-sided hydropneumothorax. Small to moderate sized pneumothorax component mostly nondependent at the lung base. Moderate pleural effusion, increased from 06/06/2022. Collapse of most of the basila r right lower lobe, markedly progressed from prior exam. Probable loculated pleural effusion pocket a long the major fissure measuring up to 9.1 cm. 2. Metastatic disease with pleural studding throughout the right hemithorax. More masslike areas at t he anterior right base measuring up to 3.4 cm. 3. Ongoing severe consolidation, volume loss, and moderate effusion with diffuse pleural thickening i n the left hemithorax. The pleural effusion is larger from 06/06/2022 with further worsening aeration at the left base.
--- NOTE | 2022-08-02 16:09 | P.CNPUL ---
History of Present Illness Consult date: 08/02/22 Reason for consult: dyspnea, pleural effusion History of present illness: 71-year-old female patient with known history of metastatic breast cancer and a malignant right-sided pleural effusion, presented to the hospital because of worsening shortness of breath. She is weak, cachectic, and emaciated. Her body mass index of 17.3. She came into the hospital he wakes back for the same reason. At that time, the patient underwent an IR guided right-sided thoracentesis and pleural fluid was aspirated and the fluid was essentially malignant consistent with metastatic breast cancer. The procedure was complicated by pneumothorax and following that the patient was given a pigtail catheter, pneumothorax was evacuated and the patient was discharged home. On today's evaluation, the patient's chest x-ray still showing right-sided pleural effusion possibly pneumothorax. A repeat chest x-ray was done and the patient was found to have a right-sided pneumothorax which was small. There was a right-sided pleural effusion which is increased compared to the earlier CAT scan images. There is collapse of the basilar right lower lobe and another loculated pocket of pleural fluid in the right lung measuring 9.1 cm in size. There is metastatic disease with pleural studding throughout the right hemithorax. There is also masslike areas of abnormalities in the anterior right lung base measuring up to 3.4 cm in size. There is also evidence of significant consolidation and volume loss involving the left lung. The patient a blood given the emergency department that showed a paced of 7.39 with a pCO2 of 64 and a pO2 of 71. Rest of the blood work shows a BUN of 15 and a creatinine of 0.3 and a sodium level is at 133. There was another 6.3 with a hemoglobin of 12.9. The rest of her breast cancer history is unavailable to me at this point in time and the patient was followed up by oncology. Review of Systems Constitutional: Reports chronic pain, Reports fatigue, Reports malaise, Reports poor appetite, Reports weakness, Reports weight loss Eyes: denies as per HPI, denies blurred vision, denies bulging eye, denies decreased vision, denies diplopia, denies discharge, denies dry eye, denies irritation, denies itching, denies pain, denies photophobia, denies loss of peripheral vision, denies loss of vision, denies tunnel vision/blind spots Ears: deny: decreased hearing, ear discharge, earache, tinnitus Ears, nose, mouth and throat: Reports as per HPI Breasts: absent: as per HPI, change in shape, gynecomastia, masses, nipple discharge, pain, skin changes, swelling Cardiovascular: Reports decreased exercise tolerance, Reports dyspnea on exertion Respiratory: Reports dyspnea Gastrointestinal: Reports as per HPI Genitourinary: Reports as per HPI Menstruation: Reports as per HPI Musculoskeletal: Reports as per HPI Integumentary: Reports as per HPI Neurological: Reports as per HPI Psychiatric: Reports as per HPI Endocrine: Reports fatigue Hematologic/Lymphatic: Reports as per HPI Past Medical History Past Medical History: Cancer Additional Past Medical History / Comment(s): breast ca, metastatic History of Any Multi-Drug Resistant Organisms: None Reported Past Surgical History: Breast Surgery Additional Past Surgical History / Comment(s): lt masectomy Past Anesthesia/Blood Transfusion Reactions: No Reported Reaction Past Psychological History: No Psychological Hx Reported Smoking Status: Never smoker Past Alcohol Use History: None Reported Past Drug Use History: None Reported Medications and Allergies Home Medications Medication Instructions Recorded Confirmed Type Exemestane [Aromasin] 25 mg PO HS 07/17/22 08/02/22 History Ondansetron [Zofran] 4 mg PO Q4H PRN 07/17/22 08/02/22 History Everolimus 10 mg PO HS 07/25/22 08/02/22 History Fluticasone/Umeclidin/Vilanter 1 puff INHALATION RT-HS 07/25/22 08/02/22 History [Trelegy Ellipta 100-62.5-25] LORazepam [Ativan] 0.25 - 0.5 mg PO Q6H PRN 08/02/22 08/02/22 History Allergies Allergy/AdvReac Type Severity Reaction Status Date / Time No Known Allergies Allergy Verified 08/02/22 10:44 Physical Exam Vitals: Vital Signs Temp Pulse Resp BP Pulse Ox 08/02/22 15:58 121 H 08/02/22 15:50 117 H 35 H 125/71 94 L 08/02/22 15:40 116 H 26 H 125/71 93 L 08/02/22 15:30 123 H 39 H 117/70 93 L 08/02/22 15:20 124 H 38 H 117/70 95 08/02/22 15:10 121 H 43 H 117/70 94 L 08/02/22 15:00 121 H 38 H 113/68 94 L 08/02/22 14:50 125 H 42 H 113/68 94 L 08/02/22 14:40 116 H 29 H 113/68 93 L 08/02/22 14:30 122 H 31 H 121/71 94 L 08/02/22 14:20 114 H 53 H 121/71 96 08/02/22 14:10 124 H 34 H 121/71 95 08/02/22 14:00 123 H 56 H 124/71 92 L 08/02/22 13:50 124 H 45 H 124/71 90 L 08/02/22 13:40 125 H 42 H 124/71 89 L 08/02/22 13:30 120 H 53 H 93 L 08/02/22 13:20 123 H 36 H 125/71 94 L 08/02/22 13:10 123 H 39 H 125/71 08/02/22 13:00 123 H 41 H 124/71 94 L 08/02/22 12:50 124/71 08/02/22 12:40 122 H 34 H 124/71 92 L 08/02/22 12:30 124 H 43 H 121/73 91 L 08/02/22 12:20 120 H 33 H 121/73 91 L 08/02/22 12:10 115 H 29 H 121/73 90 L 08/02/22 12:08 98.8 F 121 H 36 H 105/73 90 L 08/02/22 12:00 116 H 42 H 105/73 91 L 08/02/22 11:50 120 H 46 H 105/73 93 L 08/02/22 11:40 125 H 22 105/73 92 L 08/02/22 11:31 120 H 08/02/22 11:30 115 H 30 H 119/67 97 08/02/22 11:20 114 H 45 H 119/67 94 L 08/02/22 11:19 118 H 08/02/22 11:10 112 H 26 H 119/67 94 L 08/02/22 11:00 114 H 31 H 130/59 93 L 08/02/22 10:50 116 H 32 H 130/59 91 L 08/02/22 10:40 111 H 30 H 130/59 92 L 06/23/23 10:30 105 H 27 H 131/68 93 L 08/02/22 10:20 107 H 24 131/68 94 L 08/02/22 10:10 106 H 33 H 131/68 94 L 08/02/22 10:00 101 H 26 H 131/68 95 08/02/22 09:50 106 H 24 131/68 96 08/02/22 09:40 99 37 H 131/68 95 08/02/22 09:30 103 H 24 132/65 96 08/02/22 09:20 103 H 19 132/65 95 08/02/22 09:10 112 H 24 132/65 95 08/02/22 09:00 104 H 24 134/73 95 08/02/22 08:50 104 H 30 H 134/73 94 L 08/02/22 08:47 32 H 08/02/22 08:40 104 H 25 H 134/73 95 08/02/22 08:34 107 H 30 H 134/73 97 08/02/22 08:30 106 H 47 H 144/77 95 08/02/22 08:24 119 H 08/02/22 08:20 105 H 28 H 08/02/22 08:13 107 H 08/02/22 08:10 111 H 23 08/02/22 08:00 99 36 H 08/02/22 07:59 102 H 20 08/02/22 07:32 97.8 F 117 H 22 129/84 95 Intake and Output 08/02/22 08/02/22 08/02/22 06:59 14:59 22:59 Other: Weight 36.287 kg Cachectic, weak, and very much debilitated and currently on 2 L of O2 nasal cannula, the patient is obviously in mild to moderate degree of respiratory distress at this point in time. Head exam was generally normal. There was no scleral icterus or corneal arcus. Mucous membranes were moist. Neck was supple and without jugular venous distension, thyromegaly, or carotid bruits. Carotids were easily palpable bilaterally. There was no adenopathy. Lungs sounds are very much The Left, Marked Diminished Breath on the Right Lung Base and the Patient Is Having Labored Breathing Cardiac exam revealed the PMI to be normally situated and sized. The rhythm was regular and no extrasystoles were noted during several minutes of auscultation. The first and second heart sounds were normal and physiologic splitting of the second heart sound was noted. There were no murmurs, rubs, clicks, or gallops. Abdominal exam revealed normal bowel sounds. The abdomen was soft, non-tender, and without masses, organomegaly, or appreciable enlargement of the abdominal aorta. Examination of the extremities revealed easily palpable radial, femoral and pedal pulses. There was no cyanosis, clubbing or edema. Examination of the skin revealed no evidence of significant rashes, suspicious appearing nevi or other concerning lesions. Results - Laboratory Findings CBC and BMP: 08/02/22 07:55 08/02/22 07:55 ABG ABG pH 7.39 (7.35-7.45) 08/02/22 12:10 ABG pCO2 64 mmHg (35-45) H 08/02/22 12:10 ABG pO2 71 mmHg (83-108) L 08/02/22 12:10 ABG O2 Saturation 95.1 % (94-97) 08/02/22 12:10 PT/INR, D-dimer PT 10.0 sec (9.0-12.0) 08/02/22 07:55 INR 0.9 (<1.2) 08/02/22 07:55 Abnormal lab findings: Abnormal Labs 08/02/22 08/02/22 08/02/22 07:55 07:55 12:10 Lymphocytes # 0.2 L ABG pCO2 64 H ABG pO2 71 L ABG HCO3 39 H ABG Total CO2 40 H Sodium 133 L Chloride 90 L Carbon Dioxide 36 H Creatinine 0.36 L Glucose 112 H AST 37 H - Diagnostic Findings Chest x-ray: image reviewed CT scan - chest: image reviewed Assessment and Plan Plan: Metastatic breast cancer currently on Aromasin Malignant right-sided pleural effusion post iodine guided thoracentesis with evacuation of the right-sided pleural effusion. The patient has residual pleural fluid with loculated pocket of fluid measuring 9 cm in size in addition to a moderate-sized right-sided pleural effusion and compressive atelectatic changes in addition to abnormalities in the pleural surface indicating malignancy and it is involving the right hemithorax. Right-sided pneumothorax related to previous thoracentesis and failure to achieve full expansion of the right lung Chronic diagnoses involving the left lung with a loculated left-sided pleural effusion Acute hypoxic respiratory failure secondary to above Chronic debility COPD maintain on Trelegy Ellipta on an outpatient basis Shortness of breath secondary to above Plan Oncology consultation to get some more insight on her oncologic history and prognosis Obviously not a candidate for another thoracentesis specially with the presence of pneumothorax and incomplete expansion of the right lung and previous attempts May consider a Pleurx catheter insertion on the right Titrate O2 to maintain saturation above 90% Establish a CODE STATUS Prognosis extremely poor We'll continue to follow
[2022-08-02 17:00] LABS: ABG Base Excess 15.1 mmol/L; ABG HCO3 39 mmol/L (21-25); ABG Oxygen Saturation 98.4 % (94-97); ABG PCO2 58 mmHg (35-45); ABG PH 7.44 (7.35-7.45); ABG PO2 101 mmHg (83-108); ABG TCO2 41 mmol/L (19-24); Allen Test Performed? Yes
--- NOTE | 2022-08-02 18:27 | P.CONS ---
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 She is a patient of Dr. Romero. She was first diagnosed in 1997. She had a modified radical mastectomy and had adjuvant chemotherapy with 4 cycles of AC + 4 cycles of Taxol, followed by at least 5 years of Tamoxifen. She had recurrence with metastatic disease in 2013, at which time she was referred to Dr. Romero. She has been on multiple treatments since due to disease progression. She is currently on Afinitor and aromasin. Patient presented to the ER c/o progressing SOB and weakness. Of note patient was seen was hospitalized for similar reasons 2 weeks ago at which time she underwent an IR guided right-sided thoracentesis and cytology was positive for metastatic ductal breast carcinoma. The procedure was complicated by pneumothorax and following that the patient was given a pigtail catheter and pneumothorax was evacuated and the patient was discharged home. upon admission chest x-ray showed right-sided pneumothorax redemonstrated and appears slightly larger in size relative to the prior study. And right basilar increased density persists which is felt to reflect the, H of infiltrate and atelectasis with effusion. CT chest revealed right sided hydropneumothorax. Small to moderate- sized pneumothorax component mostly nondependent at the lung base. Moderate pleural effusion increased from previous study. Collapse of most of the basilar right lower lobe, markedly progressed from prior exam. Probable loculated pleural effusion pocket along the major fissure measuring up to 9.1 cm. Metastatic disease with pleural studding throughout the right chemotherapy or ask. More masslike areas at the anterior right base measuring up to 3.4 cm. Ongoing severe consolidation, volume loss, and moderate effusion with distal ple ural thickening in the left hemothorax. The pleural effusion is larger from previous study with further worsening of aeration at the left base. Pulmonology following and may consider a right sided Pleurx catheter. Oxygen saturation 92 on 3L. Pt reports improvement in breathing but is c/o weakness and fatigue. Pt afebrile. Review of Systems 10 point ROS is negative except as stated in the HPI Past Medical History Past Medical History: Cancer Additional Past Medical History / Comment(s): breast ca, lung CA History of Any Multi-Drug Resistant Organisms: None Reported Past Surgical History: Breast Surgery Additional Past Surgical History / Comment(s): lt masectomy Past Anesthesia/Blood Transfusion Reactions: No Reported Reaction Past Psychological History: No Psychological Hx Reported Smoking Status: Never smoker Past Alcohol Use History: None Reported Past Drug Use History: None Reported Medications and Allergies Home Medications Medication Instructions Recorded Confirmed Type Exemestane [Aromasin] 25 mg PO HS 07/17/22 08/02/22 History Ondansetron [Zofran] 4 mg PO Q4H PRN 07/17/22 08/02/22 History Everolimus 10 mg PO HS 07/25/22 08/02/22 History Fluticasone/Umeclidin/Vilanter 1 puff INHALATION RT- 07/25/22 08/02/22 History [Trelegy Ellipta 100-62.5-25] LORazepam [Ativan] 0.25 - 0.5 mg PO Q6H PRN 08/02/22 08/02/22 History Allergies Allergy/AdvReac Type Severity Reaction Status Date / Time No Known Allergies Allergy Verified 08/02/22 10:44 Physical Exam Vitals: Vital Signs Temp Pulse Resp BP Pulse Ox 08/02/22 12:08 98.8 F 121 H 36 H 105/73 90 L 08/02/22 11:31 120 H 08/02/22 11:19 118 H 08/02/22 10:40 93 28 H 130/59 92 L 08/02/22 08:47 32 H 08/02/22 08:34 107 H 30 H 134/73 97 08/02/22 08:24 119 H 08/02/22 08:13 107 H 08/02/22 08:00 112 H 08/02/22 07:32 97.8 F 117 H 22 129/84 95 Intake and Output 08/01/22 08/02/22 08/02/22 22:59 06:59 14:59 Other: Weight 36.287 kg - Constitutional cachectic General appearance: no acute distress - EENT Eyes: anicteric sclerae, EOMI ENT: hearing grossly normal - Respiratory breathing labored Respiratory: bilateral: diminished - Cardiovascular tachycardia Rhythm: regular Heart sounds: normal: S1, S2 Abnormal Heart Sounds: no systolic murmur, no diastolic murmur, no rub, no S3 Gallop, no S4 Gallop, no click, no other - Gastrointestinal General gastrointestinal: soft, no tenderness - Integumentary Integumentary: no cyanotic, no rash - Musculoskeletal Musculoskeletal: generalized weakness - Psychiatric Psychiatric: A&O x's 3, appropriate affect, intact judgment & insight Results CBC & Chem 7: 08/02/22 07:55 08/02/22 07:55 Labs: Abnormal Lab Results - Last 24 Hours (Table) 08/02/22 08/02/22 08/02/22 Range/Units 07:55 07:55 12:10 Lymphocytes # 0.2 L (1.0-4.8) k/uL ABG pCO2 64 H (35-45) mmHg ABG pO2 71 L (83-108) mmHg ABG HCO3 39 H (21-25) mmol/L ABG Total CO2 40 H (19-24) mmol/L Sodium 133 L (137-145) mmol/L Chloride 90 L (98-107) mmol/L Carbon Dioxide 36 H (22-30) mmol/L Creatinine 0.36 L (0.52-1.04) mg/dL Glucose 112 H (74-99) mg/dL AST 37 H (14-36) U/L Chest x-ray: report reviewed CT scan - chest: report reviewed Assessment and Plan (1) Pneumothorax Current Visit: Yes Status: Acute Priority: High Code(s): J93.9 - PNEUMOTHORAX, UNSPECIFIED SNOMED Code(s): 90684832 (2) Breast cancer metastasized to multiple sites Current Visit: Yes Status: Acute Priority: High Code(s): C50.919 - MALIGNANT NEOPLASM OF UNSP SITE OF UNSPECIFIED FEMALE BREAST SNOMED Code(s): 768775612 Plan: Metastatic breast cancer: -She is a patient of Dr. Romero. She was first diagnosed in 1997. She had a modified radical mastectomy and had adjuvant chemotherapy with 4 cycles of AC + 4 cycles of Taxol, followed by at least 5 years of Tamoxifen. She had recurrence with metastatic disease in 2013, at which time she was referred to Dr. Romero. She has been on multiple treatments since due to disease progression. She is currently on Afinitor and aromasin. Unfortunately disease has progressed on current treatment. There are other treatment lines that can be considered if patient acutely recovers from acute condition and PS improves, however prognosis is guarded. We discussed with patient and family in detail regarding wishes if she needed ventilation, and pt stated that she would not want intubation. However, hospice will not be consulted at this time as patient and family are not ready for this. We will continue to follow patient and make further recommendations pending course of hospitalization -Will hold Afinitor, pt can continue aromasin Pneumothorax: -Patient was seen was hospitalized approx 2 weeks ago at which time she underwent an IR guided right-sided thoracentesis and cytology was positive for metastatic ductal breast carcinoma. The procedure was complicated by pneumothorax and following that the patient was given a pigtail catheter and pneumothorax was evacuated -Upon admission chest x-ray showed right-sided pneumothorax redemonstrated and appears slightly larger in size relative to the prior study. And right basilar increased density persists which is felt to reflect the, H of infiltrate and atelectasis with effusion. CT chest revealed right sided hydropneumothorax. Small to moderate-sized pneumothorax component mostly nondependent at the lung base. Moderate pleural effusion increased from previous study. Collapse of most of the basilar right lower lobe, markedly progressed from prior exam. Probable loculated pleural effusion pocket along the major fissure measuring up to 9.1 cm. Metastatic disease with pleural studding throughout the right chemotherapy or ask. More masslike areas at the anterior right base measuring up to 3.4 cm. Ongoing severe consolidation, volume loss, and moderate effusion with distal pleural thickening in the left hemothorax. The pleural effusion is larger from previous study with further worsening of aeration at the left base. -Pulmonology following and may consider a right sided Pleurx catheter. attests: I performed a H&P and developed impression and plan of care for patient, discussed with dictator. I agree with dictated note, documented as a scribe
[2022-08-02] MEDS ORDERED: EVEROLIMUS 10 MG PO SCH (21:00)
[2022-08-02] MEDS: methylPREDNISolone SOD SUCCI 40 MG/ML 1 ML VIAL IV SCH (21:28)
[2022-08-02] MEDS: SYMBICORT 80-4.5 MCG INHALER INHALATION SCH (21:30)
[2022-08-03] MEDS: methylPREDNISolone SOD SUCCI 40 MG/ML 1 ML VIAL IV SCH ×3 (00:50→17:07)
[2022-08-03] MEDS: NON FORMULARY DRUG (Exemestane [Aromasin] 25 MG Tablet) PO SCH (00:50)
--- NOTE | 2022-08-03 07:24 | XR ---
EXAMINATION TYPE: XR chest 1V DATE OF EXAM: 08/03/2022 HISTORY: Shortness of breath. COMPARISON: 08/02/2022 TECHNIQUE: Single view of the chest is submitted. FINDINGS: Diffuse opacification left hemithorax with aeration about the left hilum persists. Right basilar opac ity which may reflect a combination of effusion, atelectasis and/or infiltrate. Overall stable appear ance of the chest. The heart is stable. Hilar and mediastinal structures are within normal limits. Degenerative changes are seen of the dorsal spine. IMPRESSION: 1. Stable chest
[2022-08-03] MEDS ORDERED: DEXTROSE 50% SYRINGE 50 ML IVP PRN ×2 (07:48)
[2022-08-03] MEDS: IPRATROPIUM-ALBUTEROL 3 ML NEB INHALATION SCH ×4 (08:25→21:10)
[2022-08-03] MEDS: SYMBICORT 80-4.5 MCG INHALER INHALATION SCH ×2 (08:25→21:10)
[2022-08-03] MEDS: AZITHROMYCIN 500 MG in SODIUM CHLORIDE 0.9% 250 ML IVPB SCH (09:35)
[2022-08-03 09:58] LABS: Basophils % (A) 0 %; Eosinophils # (A) 0.1 k/uL (0-0.7); Eosinophils % (A) 2 %; HGB 12.2 gm/dL (11.4-16.0); Lymphocytes # (A) 0.3 k/uL (1.0-4.8); Lymphocytes % (A) 3 %; MCH 32.2 pg (25.0-35.0); MCV 94.8 fL (80.0-100.0); Mean Platelet Volume 7.5; Monocytes # (A) 0.2 k/uL (0-1.0); Monocytes % (A) 2 %; Neutrophils # (A) 7.7 k/uL (1.3-7.7); Neutrophils % (A) 93 %; Platelet Count 304 k/uL (150-450); RBC 3.79 m/uL (3.80-5.40); RDW 14.1 % (11.5-15.5); WBC 8.3 k/uL (3.8-10.6)
[2022-08-03 10:12] LABS: ALT 25 U/L (4-34); AST 30 U/L (14-36); African American GFR (CKD) >90 (>60 ml/min/1.73 sqM); Albumin 3.3 g/dL (3.5-5.0); Alkaline Phosphatase 76 U/L (38-126); Anion Gap 4 mmol/L; Blood Urea Nitrogen 16 mg/dL (7-17); Calcium 8.7 mg/dL (8.4-10.2); Carbon Dioxide 40 mmol/L (22-30); Chloride 88 mmol/L (98-107); Glucose 241 mg/dL (74-99); Non-African American GFR(CKD) >90 (>60 ml/min/1.73 sqM); Potassium 4.1 mmol/L (3.5-5.1); Sodium 132 mmol/L (137-145); Total Bilirubin 0.3 mg/dL (0.2-1.3); Total Protein 5.9 g/dL (6.3-8.2)
--- NOTE | 2022-08-03 10:40 | P.HPIM ---
History of Present Illness H&P Date: 08/02/22 Alice Boudreaux, is a 71-year-old female who presented to [facility] emergency room with a chief complaint of worsening shortness of breath and cough She was evaluated in the emergency room vital examination on presentation revealed a temperature of 97.8 pulse 117 respiration 22 left pressure 129/84 pulse ox 95% on 2 L nasal cannula Laboratory data revealed a white blood count of 6.3 hemoglobin 12.9 platelet count 353 sodium 133 potassium 4.8 chloride 90 CO2 36 BUN 13 creatinine 0.36 BNP 1620 Testing in the emergency room revealed chest x-ray done in the emergency room revealed right sided pneumothorax and right basilar increased density Patient was admitted to medical floor for further evaluation and treatment, she was started on IV antibiotics in the emergency room and IV steroids and inhaled bronchodilators, pulmonary consultation was requested Past medical history is significant for patient has a known history of breast cancer and lung cancer she has known history of recurrent pleural effusion she recently had thoracentesis with subsequent pneumothorax and pigtail placement and removal patient was discharged from the hospital last Friday Past Medical History Past Medical History: Cancer Additional Past Medical History / Comment(s): breast ca, lung CA History of Any Multi-Drug Resistant Organisms: None Reported Past Surgical History: Breast Surgery Additional Past Surgical History / Comment(s): lt masectomy Past Anesthesia/Blood Transfusion Reactions: No Reported Reaction Past Psychological History: No Psychological Hx Reported Smoking Status: Never smoker Past Alcohol Use History: None Reported Past Drug Use History: None Reported - Past Family History Mother Family Medical History: Cancer Additional Family Medical History / Comment(s): Breast cancer on both sides of family. Medications and Allergies Home Medications Medication Instructions Recorded Confirmed Type Exemestane [Aromasin] 25 mg PO HS 07/17/22 08/02/22 History Ondansetron [Zofran] 4 mg PO Q4H PRN 07/17/22 08/02/22 History Everolimus 10 mg PO HS 07/25/22 08/02/22 History Fluticasone/Umeclidin/Vilanter 1 puff INHALATION RT-HS 07/25/22 08/02/22 History [Trelegy Ellipta 100-62.5-25] LORazepam [Ativan] 0.25 - 0.5 mg PO Q6H PRN 08/02/22 08/02/22 History Allergies Allergy/AdvReac Type Severity Reaction Status Date / Time No Known Allergies Allergy Verified 08/02/22 10:44 Physical Exam Vitals: Vital Signs Temp Pulse Resp BP Pulse Ox 08/02/22 12:08 98.8 F 121 H 36 H 105/73 90 L 08/02/22 11:31 120 H 08/02/22 11:19 118 H 08/02/22 10:40 93 28 H 130/59 92 L 08/02/22 08:47 32 H 08/02/22 08:34 107 H 30 H 134/73 97 08/02/22 08:24 119 H 08/02/22 08:13 107 H 08/02/22 08:00 112 H 08/02/22 07:32 97.8 F 117 H 22 129/84 95 Intake and Output 08/01/22 08/02/22 08/02/22 22:59 06:59 14:59 Other: Weight 36.287 kg In general patient is alert and oriented x 3 in no distress HEENT head normocephalic and atraumatic Neck is supple no JVD no goiter no lymphadenopathy no carotid bruit Chest examination is clear to auscultation no crackles no wheezing Cardiac exam reveals regular heart sounds S1 and S2 no gallops no murmurs Abdomen is soft nontender no organomegaly with normal bowel sounds Extremity exam reveals no edema no cyanosis or clubbing Neurological examination reveals no gross focal deficits Results CBC & Chem 7: 08/03/22 09:00 08/03/22 09:00 Labs: Abnormal Lab Results - Last 24 Hours (Table) 08/02/22 08/02/22 Range/Units 07:55 07:55 Lymphocytes # 0.2 L (1.0-4.8) k/uL Sodium 133 L (137-145) mmol/L Chloride 90 L (98-107) mmol/L Carbon Dioxide 36 H (22-30) mmol/L Creatinine 0.36 L (0.52-1.04) mg/dL Glucose 112 H (74-99) mg/dL AST 37 H (14-36) U/L Assessment and Plan Plan: Acute hypoxic respiratory failure Underlying history of COPD Right basilar density with suspected pneumonia patient was started on IV antibiotic Rocephin and Zithromax in the emergency room will continue Right sided pleural effusion, malignant Right pneumothorax Underlying history of lung cancer Underlying history of breast cancer, with metastatic disease At this time patient was seen and examined Home medications reviewed and reordered Pulmonary consultation requested Will follow closely
--- NOTE | 2022-08-03 10:59 | P.PN ---
Subjective Progress Note Date: 08/03/22 Alice Boudreaux, is a 71-year-old female who presented to [facility] emergency room with a chief complaint of worsening shortness of breath and cough She was evaluated in the emergency room vital examination on presentation revealed a temperature of 97.8 pulse 117 respiration 22 left pressure 129/84 pulse ox 95% on 2 L nasal cannula Laboratory data revealed a white blood count of 6.3 hemoglobin 12.9 platelet count 353 sodium 133 potassium 4.8 chloride 90 CO2 36 BUN 13 creatinine 0.36 BNP 1620 Testing in the emergency room revealed chest x-ray done in the emergency room revealed right sided pneumothorax and right basilar increased density Patient was admitted to medical floor for further evaluation and treatment, she was started on IV antibiotics in the emergency room and IV steroids and inhaled bronchodilators, pulmonary consultation was requested Past medical history is significant for patient has a known history of breast cancer and lung cancer she has known history of recurrent pleural effusion she recently had thoracentesis with subsequent pneumothorax and pigtail placement and removal patient was discharged from the hospital last Friday On 08/03/2022 patient was seen and examined on the medical floor she is alert and oriented 3 in no apparent distress she is reporting improvement in her shortness of breath and cough, otherwise she denies any complaints there is no fever or chills no headache or dizziness no chest pain no palpitation no nausea or vomiting no abdominal pain no diarrhea and no urinary symptoms. Currently patient is maintained on IV antibiotics and IV steroids, will continue was current management awaiting further recommendation from pulmonary Objective - Vital Signs Vital signs: Vital Signs Temp 98 F 08/03/22 08:00 Pulse 110 H 08/03/22 08:36 Resp 22 08/03/22 08:00 BP 114/76 08/03/22 08:00 Pulse Ox 96 08/03/22 08:26 FiO2 Intake & Output 08/02/22 08/03/22 08/03/22 18:59 06:59 18:59 Weight 36.287 kg Other: Voiding Method Diaper # Voids 1 - Exam In general patient is alert and oriented x 3 in no distress HEENT head normocephalic and atraumatic Neck is supple no JVD no goiter no lymphadenopathy no carotid bruit Chest examination is clear to auscultation no crackles no wheezing Cardiac exam reveals regular heart sounds S1 and S2 no gallops no murmurs Abdomen is soft nontender no organomegaly with normal bowel sounds Extremity exam reveals no edema no cyanosis or clubbing Neurological examination reveals no gross focal deficits - Labs CBC & Chem 7: 08/03/22 09:00 08/03/22 09:00 Labs: Abnormal Lab Results - Last 24 Hours (Table) 08/02/22 08/02/22 08/03/22 Range/Units 12:10 16:52 09:00 RBC 3.79 L (3.80-5.40) m/uL Lymphocytes # 0.3 L (1.0-4.8) k/uL ABG pCO2 64 H 58 H (35-45) mmHg ABG pO2 71 L (83-108) mmHg ABG HCO3 39 H 39 H (21-25) mmol/L ABG Total CO2 40 H 41 H (19-24) mmol/L ABG O2 Saturation 98.4 H (94-97) % Sodium (137-145) mmol/L Chloride (98-107) mmol/L Carbon Dioxide (22-30) mmol/L Creatinine (0.52-1.04) mg/dL Glucose (74-99) mg/dL Total Protein (6.3-8.2) g/dL Albumin (3.5-5.0) g/dL 08/03/22 Range/Units 09:00 RBC (3.80-5.40) m/uL Lymphocytes # (1.0-4.8) k/uL ABG pCO2 (35-45) mmHg ABG pO2 (83-108) mmHg ABG HCO3 (21-25) mmol/L ABG Total CO2 (19-24) mmol/L ABG O2 Saturation (94-97) % Sodium 132 L (137-145) mmol/L Chloride 88 L (98-107) mmol/L Carbon Dioxide 40 H (22-30) mmol/L Creatinine 0.49 L (0.52-1.04) mg/dL Glucose 241 H (74-99) mg/dL Total Protein 5.9 L (6.3-8.2) g/dL Albumin 3.3 L (3.5-5.0) g/dL Assessment and Plan Plan: Acute hypoxic respiratory failure Underlying history of COPD Right basilar density with suspected pneumonia patient was started on IV antibiotic Rocephin and Zithromax in the emergency room will continue Right sided pleural effusion, malignant Right pneumothorax Underlying history of lung cancer Underlying history of breast cancer, with metastatic disease At this time patient was seen and examined Home medications reviewed and reordered Pulmonary consultation requested Will follow closely
[2022-08-03 11:58] LABS: Glucose,Whole Blood 131 mg/dL (70-110)
--- NOTE | 2022-08-03 12:50 | P.GSCN ---
History of Present Illness Consult date: 08/03/22 Reason for Consult: Left pleural effusion, previous thoracentesis 3, evaluate for Pleurx catheter placement Requesting physician: Néstor Atwood History of present illness: This is a 71-year-old female patient who follows with Dr. Sangita Knight for her primary care, Dr. Romero for her oncology care and Dr. German Doherty for her pulmonology care. She has a past medical history significant for metastatic breast cancer, home oxygen dependent on 2 L nasal cannula, a recent right pneumothorax status post right thoracentesis and recurrent right pleural effusions. The patient presented to the emergency department here at [facility] on 08/02/2022 with complaints of progressive shortness of breath and weakness. She denies any recent fever, chills, nausea, vomiting, edema, hemoptysis, hematemesis, palpitations, headache, chest pain/pressure, presyncope or syncope. She does report that she has been having difficulty speaking due to her shortness of breath. The patient currently has s everal family members present at her bedside. A chest x-ray was completed in the emergency department which shows a right-sided pneumothorax redemonstrated, and right basilar increased density persists felt to reflect a combination of infiltrate, atelectasis and pleural effusion. For further evaluation and a computed tomography scan of the chest was completed which the report demonstrated a right-sided hydropneumothorax, small to moderate size pneumothorax, moderate right sided pleural effusion, probable loculated pleural effusion pocket along the major fissure measuring up to 9.1 cm, metastatic disease with pleural studding throughout the right hemothorax, more masslike areas at the anterior right base measuring up to 3.4 cm, ongoing severe consolidation, volume loss and moderate effusion with diffuse pleural thickening in the left hemithorax and a pleural effusion larger from 06/06/2022 with further worsening aeration of the left lung base. Laboratory results today show a WBC count of 8.3, hemoglobin 12.2, hematocrit 36.0, platelets 304, sodium 132, potassium 4.1, chloride 88, CO2 40, BUN 16, creatinine 0.49, glucose 241, calcium 8.7, AST 30, and ALT T 25. On admission a troponin I was completed which was 0.020 and a proBNP was 1620. Subsequently, due to the patient's pres enting symptoms and history of recurrent pleural effusions, a consult was placed Dr. Danny Jasso from cardiothoracic surgery for possible right-sided Pleurx catheter placement. Review of Systems A 14 point review of systems was completed was negative except as mentioned in the HPI. Past Medical History Past Medical History: Cancer Additional Past Medical History / Comment(s): breast ca, lung CA History of Any Multi-Drug Resistant Organisms: None Reported Past Surgical History: Breast Surgery Additional Past Surgical History / Comment(s): lt masectomy, right-sided thoracentesis 3 Past Anesthesia/Blood Transfusion Reactions: No Reported Reaction Past Psychological History: No Psychological Hx Reported Smoking Status: Never smoker Past Alcohol Use History: None Reported Past Drug Use History: None Reported - Past Family History Mother Family Medical History: Cancer Additional Family Medical History / Comment(s): Breast cancer on both sides of family. Medications and Allergies Home Medications Medication Instructions Recorded Confirmed Type Exemestane [Aromasin] 25 mg PO HS 07/17/22 08/02/22 History Ondansetron [Zofran] 4 mg PO Q4H PRN 07/17/22 08/02/22 History Everolimus 10 mg PO HS 07/25/22 08/02/22 History Fluticasone/Umeclidin/Vilanter 1 puff INHALATION RT-HS 07/25/22 08/02/22 History [Trelegy Ellipta 100-62.5-25] LORazepam [Ativan] 0.25 - 0.5 mg PO Q6H PRN 08/02/22 08/02/22 History Allergies Allergy/AdvReac Type Severity Reaction Status Date / Time No Known Allergies Allergy Verified 08/02/22 10:44 Surgical - Exam Vital Signs Temp Pulse Resp BP Pulse Ox 97.8 F 117 H 22 129/84 95 08/02/22 07:32 08/02/22 07:32 08/02/22 07:32 08/02/22 07:32 08/02/22 07:32 - General Mild to moderate respiratory distress, shortness of breath with speaking. no pain, cachectic, chronically ill - Eyes PERRL, normal ocular movement, no pale, no icteric - ENT normal pinna, normal nares, normal mucosa, no hearing loss, no congestion - Neck Neck is supple, no lymphadenopathy. no masses, no bruits, trachea midline, no venous distension - Respiratory Lung sounds diminished bilaterally, left greater than right. Diminished the right lower lobe. Respirations are symmetrical and somewhat labored. Oxygen saturation are 96% on 4 L nasal cannula. - Cardiovascular S1 and S2 present, negative for S3, gallop or murmur. No edema present. Regular rhythm and tachycardic rate. - Abdomen Abdomen is soft, nontender and nondistended. Active bowel sounds present in all 4 abdominal quadrants. No guarding or rigidity. No organomegaly appreciated. - Genitourinary Deferred - Rectum Deferred - Integumentary Skin is warm and dry. No clubbing or cyanosis is present. no rash, no growths, no abnormal pigmentation - Neurologic Cranial nerves II through XII intact. No focal deficits. - Musculoskeletal Moves all 4 extremities with equal strength bilateral. Generalized weakness. - Psychiatric oriented to time, oriented to person, oriented to place, speech is normal, memory intact Results - Labs 08/03/22 09:00 08/03/22 09:00 Abnormal Lab Results - Last 24 Hours (Table) 08/02/22 08/02/22 08/03/22 Range/Units 12:10 16:52 09:00 RBC 3.79 L (3.80-5.40) m/uL Lymphocytes # 0.3 L (1.0-4.8) k/uL ABG pCO2 64 H 58 H (35-45) mmHg ABG pO2 71 L (83-108) mmHg ABG HCO3 39 H 39 H (21-25) mmol/L ABG Total CO2 40 H 41 H (19-24) mmol/L ABG O2 Saturation 98.4 H (94-97) % Sodium (137-145) mmol/L Chloride (98-107) mmol/L Carbon Dioxide (22-30) mmol/L Creatinine (0.52-1.04) mg/dL Glucose (74-99) mg/dL POC Glucose (mg/dL) (70-110) mg/dL Total Protein (6.3-8.2) g/dL Albumin (3.5-5.0) g/dL 08/03/22 08/03/22 Range/Units 09:00 11:57 RBC (3.80-5.40) m/uL Lymphocytes # (1.0-4.8) k/uL ABG pCO2 (35-45) mmHg ABG pO2 (83-108) mmHg ABG HCO3 (21-25) mmol/L ABG Total CO2 (19-24) mmol/L ABG O2 Saturation (94-97) % Sodium 132 L (137-145) mmol/L Chloride 88 L (98-107) mmol/L Carbon Dioxide 40 H (22-30) mmol/L Creatinine 0.49 L (0.52-1.04) mg/dL Glucose 241 H (74-99) mg/dL POC Glucose (mg/dL) 131 H (70-110) mg/dL Total Protein 5.9 L (6.3-8.2) g/dL Albumin 3.3 L (3.5-5.0) g/dL Diabetes panel 08/03/22 Range/Units 09:00 Sodium 132 L (137-145) mmol/L Potassium 4.1 (3.5-5.1) mmol/L Chloride 88 L (98-107) mmol/L Carbon Dioxide 40 H (22-30) mmol/L BUN 16 (7-17) mg/dL Creatinine 0.49 L (0.52-1.04) mg/dL Glucose 241 H (74-99) mg/dL Calcium 8.7 (8.4-10.2) mg/dL AST 30 (14-36) U/L ALT 25 (4-34) U/L Alkaline Phosphatase 76 (38-126) U/L Total Protein 5.9 L (6.3-8.2) g/dL Albumin 3.3 L (3.5-5.0) g/dL Calcium panel 08/03/22 Range/Units 09:00 Calcium 8.7 (8.4-10.2) mg/dL Albumin 3.3 L (3.5-5.0) g/dL Pituitary panel 08/03/22 Range/Units 09:00 Sodium 132 L (137-145) mmol/L Potassium 4.1 (3.5-5.1) mmol/L Chloride 88 L (98-107) mmol/L Carbon Dioxide 40 H (22-30) mmol/L BUN 16 (7-17) mg/dL Creatinine 0.49 L (0.52-1.04) mg/dL Glucose 241 H (74-99) mg/dL Calcium 8.7 (8.4-10.2) mg/dL Adrenal panel 08/03/22 Range/Units 09:00 Sodium 132 L (137-145) mmol/L Potassium 4.1 (3.5-5.1) mmol/L Chloride 88 L (98-107) mmol/L Carbon Dioxide 40 H (22-30) mmol/L BUN 16 (7-17) mg/dL Creatinine 0.49 L (0.52-1.04) mg/dL Glucose 241 H (74-99) mg/dL Calcium 8.7 (8.4-10.2) mg/dL Total Bilirubin 0.3 (0.2-1.3) mg/dL AST 30 (14-36) U/L ALT 25 (4-34) U/L Alkaline Phosphatase 76 (38-126) U/L Total Protein 5.9 L (6.3-8.2) g/dL Albumin 3.3 L (3.5-5.0) g/dL - Imaging Chest x-ray: report reviewed, image reviewed CT scan - chest: report reviewed, image reviewed Assessment and Plan Assessment: Recurrent right-sided malignant pleural effusion, status post 3 previous right- sided thoracentesis, recent right-sided pneumothorax Metastatic breast cancer Chronic diagnosis involving the left lung with a loculated left-sided pleural effusion Acute on chronic hypoxic respiratory failure secondary to above, on home oxygen at 2 L nasal cannula COPD, on home oxygen at 2 L nasal cannula Chronic debility, cachectic Dyspnea, secondary to above Plan: The patient was seen and examined at her bedside on the third floor cardiac stepdown unit. Her chart and diagnostics reviewed. Her case was discussed in detail with Dr. Danny Jasso from cardiothoracic surgery. Treatment options were discussed with the patient including placement of right-sided Pleurx catheter, risks and benefits of Pleurx catheter placement were discussed with the patient and her family members present at her bedside. Knowing and understanding the risks patient wishes to proceed with Pleurx catheter placement. The patient will be scheduled tomorrow 08/04/2022 for a right-sided Pleurx catheter placement to be performed by Dr. Danny Jasso. She'll be made nothing by mouth after midnight. More recommendations follow based on patient's clinical course. Medical management other comorbidities per primary care ser vice and pulmonary critical care service. Thank you Dr. Atwood for this consult and we look for to working with you in the care of this patient. I have personally seen and examined the patient, performed the documentation and the assessment and plan as written. 30 minutes spent on the visit . Shen MCCONNELL
[2022-08-03] MEDS: INSULIN ASPART (NovoLOG) 100 UNIT/ML VIAL SQ SCH ×3 (12:54→21:06)
--- NOTE | 2022-08-03 13:41 | P.PN ---
Subjective Progress Note Date: 08/03/22 71-year-old female patient with known history of metastatic breast cancer and a malignant right-sided pleural effusion, presented to the hospital because of worsening shortness of breath. She is weak, cachectic, and emaciated. Her body mass index of 17.3. She came into the hospital he wakes back for the same reason. At that time, the patient underwent an IR guided right-sided thoracentesis and pleural fluid was aspirated and the fluid was essentially malignant consistent with metastatic breast cancer. The procedure was complicated by pneumothorax and following that the patient was given a pigtail catheter, pneumothorax was evacuated and the patient was discharged home. On today's evaluation, the patient's chest x-ray still showing right-sided pleural effusion possibly pneumothorax. A repeat chest x-ray was done and the patient was found to have a right-sided pneumothorax which was small. There was a right-sided pleural effusion which is increased compared to the earlier CAT scan images. There is collapse of the basilar right lower lobe and another loculated pocket of pleural fluid in the right lung measuring 9.1 cm in size. There is metastatic disease with pleural studding throughout the right hemithorax. There is also masslike areas of abnormalities in the anterior right lung base measuring up to 3.4 cm in size. There is also evidence of significant consolidation and volume loss involving the left lung. The patient a blood given the emergency department that showed a paced of 7.39 with a pCO2 of 64 and a pO2 of 71. Rest of the blood work shows a BUN of 15 and a creatinine of 0.3 and a sodium level is at 133. There was another 6.3 with a hemoglobin of 12.9. The rest of her breast cancer history is unavailable to me at this point in time and the patient was followed up by oncology. On today's evaluation of 08/03/2022, the patient is less short of breath com pared to yesterday and she is awake and alert and the patient is currently on 4 L of oxygen by nasal cannula with a pulse ox of 96%. She is in sinus tachycardia the heart is ranging between 110 and 120. No chest pain. No altered mentation. The rest of the day 0.3 with a hemoglobin of 4.2 and a p latelet count of 304. BUN is at 60 with a creatinine of 0.49. Sodium is at 132. Objective - Vital Signs Vital signs: Vital Signs Temp 98 F 08/03/22 08:00 Pulse 110 H 08/03/22 08:36 Resp 22 08/03/22 08:00 BP 114/76 08/03/22 08:00 Pulse Ox 96 08/03/22 08:26 FiO2 Intake & Output 08/02/22 08/03/22 08/03/22 18:59 06:59 18:59 Weight 36.287 kg Other: Voiding Method Diaper # Voids 1 - Exam Cachectic, weak, and very much debilitated and currently on 4 L of O2 nasal cannula, the patient is obviously in mild to moderate degree of respiratory distress at this point in time. Head exam was generally normal. There was no scleral icterus or corneal arcus. Mucous membranes were moist. Neck was supple and without jugular venous distension, thyromegaly, or carotid bruits. Carotids were easily palpable bilaterally. There was no adenopathy. Lungs sounds are very much The Left, Marked Diminished Breath on the Right Lung Base and the Patient Is Having Labored Breathing Cardiac exam revealed the PMI to be normally situated and sized. The rhythm was regular and no extrasystoles were noted during several minutes of auscultation. The first and second heart sounds were normal and physiologic splitting of the second heart sound was noted. There were no murmurs, rubs, clicks, or gallops. Abdominal exam revealed normal bowel sounds. The abdomen was soft, non-tender, and without masses, organomegaly, or appreciable enlargement of the abdominal aorta. Examination of the extremities revealed easily palpable radial, femoral and pedal pulses. There was no cyanosis, clubbing or edema. Examination of the skin revealed no evidence of significant rashes, suspicious appearing nevi or other concerning lesions. - Labs CBC & Chem 7: 08/03/22 09:00 08/03/22 09:00 Labs: Abnormal Lab Results - Last 24 Hours (Table) 08/02/22 08/02/22 08/03/22 Range/Units 12:10 16:52 09:00 RBC 3.79 L (3.80-5.40) m/uL Lymphocytes # 0.3 L (1.0-4.8) k/uL ABG pCO2 64 H 58 H (35-45) mmHg ABG pO2 71 L (83-108) mmHg ABG HCO3 39 H 39 H (21-25) mmol/L ABG Total CO2 40 H 41 H (19-24) mmol/L ABG O2 Saturation 98.4 H (94-97) % Sodium (137-145) mmol/L Chloride (98-107) mmol/L Carbon Dioxide (22-30) mmol/L Creatinine (0.52-1.04) mg/dL Glucose (74-99) mg/dL Total Protein (6.3-8.2) g/dL Albumin (3.5-5.0) g/dL 08/03/22 Range/Units 09:00 RBC (3.80-5.40) m/uL Lymphocytes # (1.0-4.8) k/uL ABG pCO2 (35-45) mmHg ABG pO2 (83-108) mmHg ABG HCO3 (21-25) mmol/L ABG Total CO2 (19-24) mmol/L ABG O2 Saturation (94-97) % Sodium 132 L (137-145) mmol/L Chloride 88 L (98-107) mmol/L Carbon Dioxide 40 H (22-30) mmol/L Creatinine 0.49 L (0.52-1.04) mg/dL Glucose 241 H (74-99) mg/dL Total Protein 5.9 L (6.3-8.2) g/dL Albumin 3.3 L (3.5-5.0) g/dL Assessment and Plan Plan: Metastatic breast cancer currently on Aromasin Malignant right-sided pleural effusion post iodine guided thoracentesis with evacuation of the right-sided pleural effusion. The patient has residual pleural fluid with loculated pocket of fluid measuring 9 cm in size in addition to a moderate-sized right-sided pleural effusion and compressive atelectatic changes in addition to abnormalities in the pleural surface indicating malignancy and it is involving the right hemithorax. Shortness of breath secondary to above which is currently stable Right-sided pneumothorax related to previous thoracentesis and failure to achieve full expansion of the right lung Chronic diagnoses involving the left lung with a loculated left-sided pleural effusion Acute hypoxic respiratory failure secondary to above, currently on 4 L of O2 nasal cannula Chronic debility COPD maintain on Trelegy Ellipta on an outpatient basis Shortness of breath secondary to above Plan Oncology consultation to get some more insight on her oncologic history and prognosis Obviously not a candidate for another thoracentesis specially with the presence of pneumothorax and incomplete expansion of the right lung and previous attempts Discussed the case with the thoracic surgery and the patient is going to undergo a Pleurx catheterization tomorrow Titrate O2 to maintain saturation above 90% Establish a CODE STATUS Prognosis extremely poor We'll continue to follow
[2022-08-03] MEDS: LORazepam 0.5 MG TAB PO PRN ×2 (14:03→20:56)
[2022-08-03 16:50] LABS: Glucose,Whole Blood 131 mg/dL (70-110)
[2022-08-03] MEDS: VERAPAMIL 40 MG TAB PO SCH (17:07)
[2022-08-03 20:37] LABS: Glucose,Whole Blood 246 mg/dL (70-110)
[2022-08-04] MEDS: NON FORMULARY DRUG (Exemestane [Aromasin] 25 MG Tablet) PO SCH ×2 (00:50→20:55)
[2022-08-04] MEDS: methylPREDNISolone SOD SUCCI 40 MG/ML 1 ML VIAL IV SCH ×3 (01:09→17:13)
[2022-08-04 06:58] LABS: Glucose,Whole Blood 117 mg/dL (70-110)
[2022-08-04] MEDS: INSULIN ASPART (NovoLOG) 100 UNIT/ML VIAL SQ SCH ×4 (06:59→20:56)
[2022-08-04] MEDS: IPRATROPIUM-ALBUTEROL 3 ML NEB INHALATION SCH ×4 (07:42→19:47)
[2022-08-04] MEDS: SYMBICORT 80-4.5 MCG INHALER INHALATION SCH ×2 (07:42→19:47)
[2022-08-04] MEDS ORDERED: LIDOCAINE 1% INJ 10MG/ML (20 ML MDV) SQ ONE ×2 (08:12)
[2022-08-04 08:15] LABS: Basophils % (A) 0 %; Eosinophils # (A) 0.1 k/uL (0-0.7); Eosinophils % (A) 1 %; HCT 35.9 % (34.0-46.0); HGB 11.7 gm/dL (11.4-16.0); Lymphocytes # (A) 0.1 k/uL (1.0-4.8); Lymphocytes % (A) 1 %; MCH 31.2 pg (25.0-35.0); MCHC 32.7 g/dL (31.0-37.0); MCV 95.5 fL (80.0-100.0); Mean Platelet Volume 7.6; Monocytes # (A) 0.1 k/uL (0-1.0); Monocytes % (A) 1 %; Neutrophils # (A) 9.5 k/uL (1.3-7.7); Neutrophils % (A) 96 %; Platelet Count 304 k/uL (150-450); RBC 3.76 m/uL (3.80-5.40); WBC 9.9 k/uL (3.8-10.6)
[2022-08-04 08:34] LABS: ALT 24 U/L (4-34); AST 28 U/L (14-36); African American GFR (CKD) >90 (>60 ml/min/1.73 sqM); Albumin 3.2 g/dL (3.5-5.0); Alkaline Phosphatase 76 U/L (38-126); Blood Urea Nitrogen 17 mg/dL (7-17); Calcium 8.7 mg/dL (8.4-10.2); Chloride 91 mmol/L (98-107); Glucose 113 mg/dL (74-99); Non-African American GFR(CKD) >90 (>60 ml/min/1.73 sqM); Potassium 4.3 mmol/L (3.5-5.1); Sodium 132 mmol/L (137-145); Total Bilirubin 0.3 mg/dL (0.2-1.3)
[2022-08-04 08:41] LABS: Anion Gap 5 mmol/L; Carbon Dioxide 36 mmol/L (22-30)
[2022-08-04] MEDS ORDERED: MIDAZOLAM 2 MG/2 ML VIAL ONE (08:48)
[2022-08-04] MEDS ORDERED: LACTATED RINGERS 1,000 ML IV ONE (08:56)
[2022-08-04] MEDS ORDERED: SODIUM CHLORIDE 0.9% 100 ML BAG ONE (08:56)
[2022-08-04] MEDS ORDERED: SODIUM CHLORIDE 0.9% 50 ML with ceFAZolin 1,000 MG IV ONE ×2 (08:56)
[2022-08-04] MEDS ORDERED: ceFAZolin 1,000 MG VIAL ONE (08:56)
--- NOTE | 2022-08-04 09:34 | P.OP ---
Date of Procedure: 08/04/22 Preoperative Diagnosis: Metastatic carcinoma the breast with bilateral recurrent malignant pleural effusion Postoperative Diagnosis: Same Procedure(s) Performed: Right Pleurx catheter placement with fluoroscopic Implants: Pleurx catheter Anesthesia: FERMIN Surgeon: Danny Jasso Estimated Blood Loss (ml): 3 IV fluids (ml): 100 Urine output (ml): 0 Pathology: other (Right pleural fluid for cytology) Condition: stable Disposition: PACU Indications for Procedure: 71-year-old female presents with shortness of breath. Known metastatic breast cancer with previous thoracentesis 2 of the left side for malignant effusion in February and March in [place] and more recent thoracentesis of the right side here at [facility]. She presents with recurrent right pleural effusion and persistent chronic left pleural effusion. Was decided to simply place a right sided tube at this time due to chronicity of the left effusion with thick pleural peel and evident trapped lung by CT criteria. Operative Findings: Right pleural fluid was thin and serous. We drained 800 mL. We ceased draining when it began to turned bloody. Description of Procedure: Patient was brought to the operating room. She was placed on the operating table. The back was raised for her comfort. Left arm was tucked. Right arm was placed out on an armboard. The right lower chest and right upper quadrant of the abdomen were sterilely prepped and draped. IV sedation was administered. 1 g of IV Ancef was administered. 1% lidocaine was used for anesthesia. The right pleural space was punctured with 18-gauge needle and a guidewire threaded into the right pleural space under fluoroscopic guidance. Exit site in the right upper quadrant of the abdomen was created with a 11 blade and the entry site in the right chest was enlarged with the 11 blade. Purse catheter was tunneled from the exit site to the entry site and the cuff positioned under the skin at the exit site. Introducer and dilator were placed over the guidewire under fluoroscopic guidance and the purse catheter was introduced into the pleural space using the introducer sheath which was then stripped away. Pleurx catheter was connected to suction and 800 mL was drained. We ceased drainage when the drainage became sanguinous. Catheter was then connected to Pleurx catheter. Catheter was secured at the exit site with a 2-0 silk suture. Entry site was closed with 4-0 Vicryl and skin glue. Drapes were removed. The entry site was dressed with a Band-Aid and the exit site with a standard Pleurx dress ing. Patient was transferred to recovery in stable condition. Fluoroscopy on completion of the procedure showed excellent clearance of the right pleural space from fluid.
[2022-08-04 09:37] LABS: T4, Free (Free Thyroxine) 1.32 ng/dL (0.78-2.19)
--- NOTE | 2022-08-04 09:43 | FL ---
Fluoroscopy History: RIGHT PLEUREX CATHETER PLACEMENT .5661 Gycm2 DAP, 9 SEC FLUORO
[2022-08-04] MEDS ORDERED: ACETAMINOPHEN TAB 325 MG TAB PO PRN (09:51)
--- NOTE | 2022-08-04 10:22 | XR ---
EXAMINATION TYPE: XR chest 1V portable DATE OF EXAM: 08/04/2022 HISTORY: Shortness of breath. COMPARISON: 08/03/2022 TECHNIQUE: Single view of the chest is submitted. FINDINGS: Interval placement of right-sided pleural catheter. No evidence of pneumothorax. Right-sided effusion . Decreased in size. Residual right lower lobe infiltrate. Persistent and stable near complete opacif ication of the left hemithorax with aerated lung about the left hilum. The heart is stable. Hilar and mediastinal structures are within normal limits. Degenerative changes are seen of the dorsal spine. IMPRESSION: 1. Right-sided pleural catheter placement with diminution in left-sided effusion and residual right l ower lobe infiltrate or atelectasis. 2. Stable appearance of the left hemithorax.
--- NOTE | 2022-08-04 11:05 | P.PN ---
Subjective Progress Note Date: 08/04/22 Alice Boudreaux, is a 71-year-old female who presented to [facility] emergency room with a chief complaint of worsening shortness of breath and cough She was evaluated in the emergency room vital examination on presentation revealed a temperature of 97.8 pulse 117 respiration 22 left pressure 129/84 pulse ox 95% on 2 L nasal cannula Laboratory data revealed a white blood count of 6.3 hemoglobin 12.9 platelet count 353 sodium 133 potassium 4.8 chloride 90 CO2 36 BUN 13 creatinine 0.36 BNP 1620 Testing in the emergency room revealed chest x-ray done in the emergency room revealed right sided pneumothorax and right basilar increased density Patient was admitted to medical floor for further evaluation and treatment, she was started on IV antibiotics in the emergency room and IV steroids and inhaled bronchodilators, pulmonary consultation was requested Past medical history is significant for patient has a known history of breast cancer and lung cancer she has known history of recurrent pleural effusion she recently had thoracentesis with subsequent pneumothorax and pigtail placement and removal patient was discharged from the hospital last Friday On 08/03/2022 patient was seen and examined on the medical floor she is alert and oriented 3 in no apparent distress she is reporting improvement in her shortness of breath and cough, otherwise she denies any complaints there is no fever or chills no headache or dizziness no chest pain no palpitation no nausea or vomiting no abdominal pain no diarrhea and no urinary symptoms. Currently patient is maintained on IV antibiotics and IV steroids, will continue was current management awaiting further recommendation from pulmonary On 08/04/2022 patient was seen and examined on the medical floor she is alert and oriented 3 in no apparent distress she is reporting improvement in her shortness of breath and cough, otherwise she denies any complaints there is no fever or chills no headache or dizziness no chest pain no palpitation no nausea or vomiting no abdominal pain no diarrhea and no urinary symptoms. She underwent Pleurex catheter placement today. Currently patient is maintained on IV antibiotics and IV steroids, will continue was current management awaiting further recommendation from pulmonary Objective - Vital Signs Vital signs: Vital Signs Temp 97.9 F 08/04/22 10:14 Pulse 111 H 08/04/22 10:14 Resp 18 08/04/22 10:14 BP 120/79 08/04/22 10:14 Pulse Ox 96 08/04/22 10:14 FiO2 Intake & Output 08/03/22 08/04/22 08/04/22 18:59 06:59 18:59 Intake Total 360 100 Output Total 3 Balance 360 97 Weight 36.287 kg Intake: IV 100 Oral 360 Output: Estimated Blood Loss 3 Other: Voiding Method Diaper # Voids 2 1 2 - Exam In general patient is alert and oriented x 3 in no distress HEENT head normocephalic and atraumatic Neck is supple no JVD no goiter no lymphadenopathy no carotid bruit Chest examination is clear to auscultation no crackles no wheezing Cardiac exam reveals regular heart sounds S1 and S2 no gallops no murmurs Abdomen is soft nontender no organomegaly with normal bowel sounds Extremity exam reveals no edema no cyanosis or clubbing Neurological examination reveals no gross focal deficits - Labs CBC & Chem 7: 08/04/22 06:43 08/04/22 06:43 Labs: Abnormal Lab Results - Last 24 Hours (Table) 08/03/22 08/03/22 08/03/22 Range/Units 11:57 16:48 20:34 RBC (3.80-5.40) m/uL Neutrophils # (1.3-7.7) k/uL Lymphocytes # (1.0-4.8) k/uL Sodium (137-145) mmol/L Chloride (98-107) mmol/L Carbon Dioxide (22-30) mmol/L Creatinine (0.52-1.04) mg/dL Glucose (74-99) mg/dL POC Glucose (mg/dL) 131 H 131 H 246 H (70-110) mg/dL Total Protein (6.3-8.2) g/dL Albumin (3.5-5.0) g/dL TSH (0.465-4.680) mIU/L 08/04/22 08/04/22 08/04/22 Range/Units 06:43 06:43 06:57 RBC 3.76 L (3.80-5.40) m/uL Neutrophils # 9.5 H (1.3-7.7) k/uL Lymphocytes # 0.1 L (1.0-4.8) k/uL Sodium 132 L (137-145) mmol/L Chloride 91 L (98-107) mmol/L Carbon Dioxide 36 H (22-30) mmol/L Creatinine 0.35 L (0.52-1.04) mg/dL Glucose 113 H (74-99) mg/dL POC Glucose (mg/dL) 117 H (70-110) mg/dL Total Protein 6.0 L (6.3-8.2) g/dL Albumin 3.2 L (3.5-5.0) g/dL TSH 0.363 L (0.465-4.680) mIU/L Microbiology - Last 24 Hours (Table) 08/02/22 09:38 Blood Culture - Preliminary Blood Assessment and Plan Plan: Acute hypoxic respiratory failure Underlying history of COPD Right basilar density with suspected pneumonia patient was started on IV antibiotic Rocephin and Zithromax in the emergency room will continue Right sided pleural effusion, malignant Right pneumothorax Underlying history of lung cancer Underlying history of breast cancer, with metastatic disease At this time patient was seen and examined Home medications reviewed and reordered Pulmonary consultation requested Will follow closely
--- NOTE | 2022-08-04 11:33 | P.CRDCN ---
History of Present Illness Consult date: 08/04/22 Reason for Consult (text): Sinus tachycardia History of present illness: The patient is a 71-year-old female who is admitted to the hospital with worsening shortness of breath. The patient has advanced breast cancer with metastatic disease to her lung. She was diagnosed with a right-sided pneumothorax and large right pleural effusion, for which a right Pleurx catheter was placed this morning by CV surgery. Cardiology has been consulted for sinus tachycardia. DIAGNOSTICS: EKG shows sinus tachycardia Chest x-ray shows large right pleural effusion Computed tomography scan of the chest shows right-sided pneumothorax and moderate pleural effusion. Collapse of most of the basilar right lower lobe, progressed from previous exam. Metastatic disease noted in the pleural studding throughout the right hemothorax REVIEW OF SYSTEMS: No fever or chills. No cough or expectoration. No diaphoresis. Patient denies headache, dizziness, blurred vision, double vision. Patient denies any stomach discomfort. No nausea, vomiting. No hematochezia. No hematemesis. Denies any black stools or blood in his stools. Denies dysuria or hematuria. Positive for weakness and fatigue. Denies chest pain or chest pressure. Positive for difficulty breathing. PHYSICAL EXAMINATION: This is a 71-year-old ill-appearing female in no apparent distress at the time of my examination. Malnourished. HEENT: Head is atraumatic, normocephalic. Pupils are equal, round. There is no jugular venous distention. No carotid bruit is heard. CHEST EXAMINATION: Lungs are diminished to auscultation, no aeration in left lower lobe. No chest wall tenderness is noted on palpation or with deep breathing. HEART EXAMINATION: Heart regular rate and rhythm. S1, S2 heard. No murmurs, gallops or rub. ABDOMEN: Soft, nontender. Bowel sounds are heard. No organomegaly noted. EXTREMITIES: 2+ peripheral pulses with no evidence of peripheral edema and no calf tenderness noted. NEUROLOGIC EXAMINATION: Patient is awake, alert and oriented x3. FINAL ASSESSMENT AND PLAN: Sinus tachycardia, secondary to hypoxia and respiratory distress Acute hypoxic respiratory failure Pleural effusion, malignant History of breast cancer with metastatic disease PLAN: Start low-dose calcium channel yair Correct underlying hypoxia No further recommendations from the cardiac standpoint I am dictating on behalf of Dr Carlos Rowland's history/physical and assessment/plan. Past Medical History Past Medical History: Cancer Additional Past Medical History / Comment(s): breast ca, lung CA History of Any Multi-Drug Resistant Organisms: None Reported Past Surgical History: Breast Surgery Additional Past Surgical History / Comment(s): lt masectomy, right-sided thoracentesis 3 Past Anesthesia/Blood Transfusion Reactions: No Reported Reaction Past Psychological History: No Psychological Hx Reported Smoking Status: Never smoker Past Alcohol Use History: None Reported Past Drug Use History: None Reported - Past Family History Mother Family Medical History: Cancer Additional Family Medical History / Comment(s): Breast cancer on both sides of family. Medications and Allergies Home Medications Medication Instructions Recorded Confirmed Type Exemestane [Aromasin] 25 mg PO HS 07/17/22 08/02/22 History Ondansetron [Zofran] 4 mg PO Q4H PRN 07/17/22 08/02/22 History Everolimus 10 mg PO HS 07/25/22 08/02/22 History Fluticasone/Umeclidin/Vilanter 1 puff INHALATION RT-HS 07/25/22 08/02/22 History [Trelegy Ellipta 100-62.5-25] LORazepam [Ativan] 0.25 - 0.5 mg PO Q6H PRN 08/02/22 08/02/22 History Allergies Allergy/AdvReac Type Severity Reaction Status Date / Time No Known Allergies Allergy Verified 08/02/22 10:44 Physical Exam Vitals: Vital Signs Temp Pulse Pulse Resp BP BP Pulse Ox 08/04/22 11:12 108 H 08/04/22 10:55 18 08/04/22 10:14 97.9 F 111 H 18 120/79 96 08/04/22 10:00 116 H 18 124/87 100 08/04/22 09:44 109 H 18 128/75 100 08/04/22 09:30 112 H 18 124/71 100 08/04/22 09:25 98 F 114 H 18 135/73 98 08/04/22 07:53 98 08/04/22 07:43 100 96 08/04/22 02:00 98.8 F 106 H 20 142/76 93 L 08/03/22 21:21 108 H 08/03/22 21:11 109 H 08/03/22 20:00 98.4 F 109 H 20 133/71 93 L 08/03/22 17:09 139 H 20 130/82 92 L 08/03/22 15:32 118 H 08/03/22 15:20 122 H 08/03/22 13:58 99.1 F 123 H 20 129/65 95 08/03/22 11:44 120 H 08/03/22 11:31 120 H Intake and Output 08/03/22 08/04/22 08/04/22 22:59 06:59 14:59 Intake Total 240 100 Output Total 3 Balance 240 97 Intake: IV 100 Oral 240 Output: Estimated Blood Loss 3 Other: Voiding Method Diaper Diaper Diaper # Voids 2 1 2 Results 08/04/22 06:43 08/04/22 06:43 Cardiac Enzymes 08/04/22 Range/Units 06:43 AST 28 (14-36) U/L CBC 08/04/22 Range/Units 06:43 WBC 9.9 (3.8-10.6) k/uL RBC 3.76 L (3.80-5.40) m/uL Hgb 11.7 (11.4-16.0) gm/dL Hct 35.9 (34.0-46.0) % Plt Count 304 (150-450) k/uL Comprehensive Metabolic Panel 08/04/22 Range/Units 06:43 Sodium 132 L (137-145) mmol/L Potassium 4.3 (3.5-5.1) mmol/L Chloride 91 L (98-107) mmol/L Carbon Dioxide 36 H (22-30) mmol/L BUN 17 (7-17) mg/dL Creatinine 0.35 L (0.52-1.04) mg/dL Glucose 113 H (74-99) mg/dL Calcium 8.7 (8.4-10.2) mg/dL AST 28 (14-36) U/L ALT 24 (4-34) U/L Alkaline Phosphatase 76 (38-126) U/L Total Protein 6.0 L (6.3-8.2) g/dL Albumin 3.2 L (3.5-5.0) g/dL Current Medications Generic Name Dose Route Start Last Admin Trade Name Freq PRN Reason Stop Dose Admin Acetaminophen 650 mg 08/04/22 09:51 Acetaminophen Tab 325 Mg Tab PO Q4HR PRN Fever and/ or Pain Albuterol Sulfate 2.5 mg 08/02/22 09:38 Albuterol Nebulized 2.5 Mg/3 Ml INHALATION RT-Q2H PRN Shortness Of Breath Or Wheezing Albuterol/Ipratropium 3 ml 08/02/22 12:00 08/04/22 11:12 Ipratropium-Albuterol 3 Ml Neb INHALATION 3 ml RT-QID GERMAIN Administration Budesonide/Formoterol Fumarate 2 puff 08/02/22 20:00 08/04/22 07:42 Symbicort 80-4.5 Mcg Inhaler INHALATION 2 puff RT-BID GERMAIN Administration Dextrose/Water 25 ml 08/03/22 07:48 Dextrose 50% Syringe 50 Ml IVP PER PROTOCOL PRN Hypoglycemia Protocol Dextrose/Water 50 ml 08/03/22 07:48 Dextrose 50% Syringe 50 Ml IVP PER PROTOCOL PRN Hypoglycemia Protocol Ceftriaxone Sodium 1 gm/ 50 mls @ 100 mls/hr 08/03/22 09:00 08/04/22 10:47 Sodium Chloride IVPB 100 mls/hr Q24HR GERMAIN Administration Protocol Insulin Aspart 0 unit 08/03/22 12:30 08/04/22 06:59 Insulin Aspart (Novolog) 100 Unit/Ml Vial SQ Not Given ACHS GERMAIN Protocol Ketorolac Tromethamine 15 mg 08/04/22 12:00 Ketorolac 15 Mg/Ml 1 Ml Vial IVP 08/09/22 09:10 Q6HR GERMAIN Lorazepam 0.5 mg 08/02/22 12:43 08/03/22 20:56 Lorazepam 0.5 Mg Tab PO 0.5 mg Q6H PRN Administration Anxiety Methylprednisolone Sodium Succinate 40 mg 08/02/22 16:00 08/04/22 10:46 Methylprednisolone Sod Succi 40 Mg/Ml 1 Ml Vial IV 40 mg Q8HR GERMAIN Administration Miscellaneous Information 1 each 08/02/22 09:38 Pneumonia Protocol Utilized 1 Each Misc PO ONCE PRN Per Protocol Miscellaneous Information 1 each 08/02/22 12:34 Rx Info: Iv Contrast Was Given 1 Each Misc MISCELLANE 08/04/22 12:34 DAILY PRN Per Protocol Non-Formulary Medication 25 mg 08/02/22 21:00 08/04/22 00:50 Exemestane [Aromasin] PO Not Given HS GERMAIN Ondansetron HCl 4 mg 08/02/22 12:43 Ondansetron 4 Mg Tab PO Q4H PRN Nausea Verapamil HCl 80 mg 08/04/22 16:00 Verapamil 80 Mg Tab PO TID GERMAIN Intake and Output 08/03/22 08/04/22 08/04/22 22:59 06:59 14:59 Intake Total 240 100 Output Total 3 Balance 240 97 Intake: IV 100 Oral 240 Output: Estimated Blood Loss 3 Other: Voiding Method Diaper Diaper Diaper # Voids 2 1 2 08/04/22 06:43 08/04/22 06:43
[2022-08-04 11:52] LABS: Glucose,Whole Blood 100 mg/dL (70-110)
[2022-08-04] MEDS: AZITHROMYCIN 500 MG in SODIUM CHLORIDE 0.9% 250 ML IVPB SCH (11:56)
[2022-08-04] MEDS: KETOROLAC 15 MG/ML 1 ML VIAL IVP SCH ×2 (12:43→17:13)
--- NOTE | 2022-08-04 12:51 | P.PN ---
Subjective Progress Note Date: 08/04/22 71-year-old female patient with known history of metastatic breast cancer and a malignant right-sided pleural effusion, presented to the hospital because of worsening shortness of breath. She is weak, cachectic, and emaciated. Her body mass index of 17.3. She came into the hospital he wakes back for the same reason. At that time, the patient underwent an IR guided right-sided thoracentesis and pleural fluid was aspirated and the fluid was essentially malignant consistent with metastatic breast cancer. The procedure was complicated by pneumothorax and following that the patient was given a pigtail catheter, pneumothorax was evacuated and the patient was discharged home. On today's evaluation, the patient's chest x-ray still showing right-sided pleural effusion possibly pneumothorax. A repeat chest x-ray was done and the patient was found to have a right-sided pneumothorax which was small. There was a right-sided pleural effusion which is increased compared to the earlier CAT scan images. There is collapse of the basilar right lower lobe and another loculated pocket of pleural fluid in the right lung measuring 9.1 cm in size. There is metastatic disease with pleural studding throughout the right hemithorax. There is also masslike areas of abnormalities in the anterior right lung base measuring up to 3.4 cm in size. There is also evidence of significant consolidation and volume loss involving the left lung. The patient a blood given the emergency department that showed a paced of 7.39 with a pCO2 of 64 and a pO2 of 71. Rest of the blood work shows a BUN of 15 and a creatinine of 0.3 and a sodium level is at 133. There was another 6.3 with a hemoglobin of 12.9. The rest of her breast cancer history is unavailable to me at this point in time and the patient was followed up by oncology. On today's evaluation of 08/03/2022, the patient is less short of breath com pared to yesterday and she is awake and alert and the patient is currently on 4 L of oxygen by nasal cannula with a pulse ox of 96%. She is in sinus tachycardia the heart is ranging between 110 and 120. No chest pain. No altered mentation. The rest of the day 0.3 with a hemoglobin of 4.2 and a p latelet count of 304. BUN is at 60 with a creatinine of 0.49. Sodium is at 132. This morning of 08/04/2022, the patient is less short of breath. A Pleurx catheter was inserted and immediately 800 mL of pleural fluid was aspirated from the right lung. The Pleurx catheter was connected to wall suction. The patient is doing well. Repeat chest x-ray shows significant improvement in the pleural effusion is recovered on the chest x-ray and there is no evidence of any pneumothorax. Family is at the bedside. The episodes of 9.9 with a hemoglobin of 11.7. BUN is at 70 with a creatinine of 0.3. Sodium is at 132. Objective - Vital Signs Vital signs: Vital Signs Temp 97.7 F 08/04/22 12:05 Pulse 110 H 08/04/22 12:05 Resp 16 08/04/22 12:05 BP 126/81 08/04/22 12:05 Pulse Ox 97 08/04/22 12:05 FiO2 Intake & Output 08/03/22 08/04/22 08/04/22 18:59 06:59 18:59 Intake Total 360 100 Output Total 3 Balance 360 97 Weight 36.287 kg Intake: IV 100 Oral 360 Output: Estimated Blood Loss 3 Other: Voiding Method Diaper Diaper # Voids 2 1 2 - Exam Cachectic, weak, and very much debilitated and currently on 3 L of O2 nasal cannula, the patient is obviously in mild to moderate degree of respiratory distress at this point in time. Head exam was generally normal. There was no scleral icterus or corneal arcus. Mucous membranes were moist. Neck was supple and without jugular venous distension, thyromegaly, or carotid bruits. Carotids were easily palpable bilaterally. There was no adenopathy. Lungs sounds are very much The Left, Marked Diminished Breath on the Right Lung Base and the Patient Is Having Labored Breathing, the patient is advised catheter in the right lung committed to wall suction. Cardiac exam revealed the PMI to be normally situated and sized. The rhythm was regular and no extrasystoles were noted during several minutes of auscultation. The first and second heart sounds were normal and physiologic splitting of the second heart sound was noted. There were no murmurs, rubs, clicks, or gallops. Abdominal exam revealed normal bowel sounds. The abdomen was soft, non-tender, and without masses, organomegaly, or appreciable enlargement of the abdominal aorta. Examination of the extremities revealed easily palpable radial, femoral and pedal pulses. There was no cyanosis, clubbing or edema. Examination of the skin revealed no evidence of significant rashes, suspicious appearing nevi or other concerning lesions. - Labs CBC & Chem 7: 08/04/22 06:43 08/04/22 06:43 Labs: Abnormal Lab Results - Last 24 Hours (Table) 08/03/22 08/03/22 08/04/22 Range/Units 16:48 20:34 06:43 RBC 3.76 L (3.80-5.40) m/uL Neutrophils # 9.5 H (1.3-7.7) k/uL Lymphocytes # 0.1 L (1.0-4.8) k/uL Sodium (137-145) mmol/L Chloride (98-107) mmol/L Carbon Dioxide (22-30) mmol/L Creatinine (0.52-1.04) mg/dL Glucose (74-99) mg/dL POC Glucose (mg/dL) 131 H 246 H (70-110) mg/dL Total Protein (6.3-8.2) g/dL Albumin (3.5-5.0) g/dL TSH (0.465-4.680) mIU/L 08/04/22 08/04/22 Range/Units 06:43 06:57 RBC (3.80-5.40) m/uL Neutrophils # (1.3-7.7) k/uL Lymphocytes # (1.0-4.8) k/uL Sodium 132 L (137-145) mmol/L Chloride 91 L (98-107) mmol/L Carbon Dioxide 36 H (22-30) mmol/L Creatinine 0.35 L (0.52-1.04) mg/dL Glucose 113 H (74-99) mg/dL POC Glucose (mg/dL) 117 H (70-110) mg/dL Total Protein 6.0 L (6.3-8.2) g/dL Albumin 3.2 L (3.5-5.0) g/dL TSH 0.363 L (0.465-4.680) mIU/L Microbiology - Last 24 Hours (Table) 08/02/22 09:38 Blood Culture - Preliminary Blood Assessment and Plan Plan: Metastatic breast cancer currently on Aromasin Malignant right-sided pleural effusion post iodine guided thoracentesis with evacuation of the right-sided pleural effusion. The patient has residual ple ural fluid with loculated pocket of fluid measuring 9 cm in size in addition to a moderate-sized right-sided pleural effusion and compressive atelectatic changes in addition to abnormalities in the pleural surface indicating malignancy and it is involving the right hemithorax. The patient underwent a Pleurx catheter insertion and there is adequate symptomatic relief following the cath insertion patient's follow-up chest x-ray shows improvement in the volume status and the right-sided pleural effusion. No pneumothorax. Shortness of breath secondary to above which is currently stable, improved post- catheter insertion/Pleurx Right-sided pneumothorax related to previous thoracentesis and failure to achieve full expansion of the right lung Chronic diagnoses involving the left lung with a loculated left-sided pleural effusion Acute hypoxic respiratory failure secondary to above, currently on 3 L of O2 nasal cannula Chronic debility COPD maintain on Trelegy Ellipta on an outpatient basis Shortness of breath secondary to above Plan Keep the patient's breast catheter attached to wall suction Currently on 3 L of oxygen by nasal cannula Oncology consultation to get some more insight on her oncologic history and prognosis Repeat chest x-ray post-catheter insertion was noted Titrate O2 to maintain saturation above 90% Establish a CODE STATUS Prognosis extremely poor We'll continue to follow
[2022-08-04 17:08] LABS: Glucose,Whole Blood 237 mg/dL (70-110)
[2022-08-04] MEDS: VERAPAMIL 80 MG TAB PO SCH ×2 (17:23→21:02)
[2022-08-04 20:15] LABS: Glucose,Whole Blood 153 mg/dL (70-110)
[2022-08-05] MEDS: KETOROLAC 15 MG/ML 1 ML VIAL IVP SCH ×5 (01:30→23:37)
[2022-08-05] MEDS: methylPREDNISolone SOD SUCCI 40 MG/ML 1 ML VIAL IV SCH ×4 (01:30→23:45)
[2022-08-05 06:06] LABS: Glucose,Whole Blood 124 mg/dL (70-110)
[2022-08-05] MEDS: INSULIN ASPART (NovoLOG) 100 UNIT/ML VIAL SQ SCH ×4 (06:47→20:36)
--- NOTE | 2022-08-05 06:54 | XR ---
EXAMINATION TYPE: XR chest 2V DATE OF EXAM: 08/05/2022 6:47 AM COMPARISON: Chest radiographs from 08/04/2022, 08/03/2022, CT chest 08/02/2022. TECHNIQUE: XR chest 2V view. CLINICAL INDICATION:Female, 71 years old with history of Pleural Catheter placement; FINDINGS: Lines/Tubes: Right-sided Pleurx catheter is in stable position. No evidence for sizable pneumothorax. Small right- sided pleural effusion. Right lower lobe nodularity redemonstrated compatible with known metastatic d isease. Residual right mid and lower lung infiltrates. Persistent and stable near complete opacificat ion of the left hemithorax with aerated lung about the left hilum. Surgical clips in the left breast/ axilla. IMPRESSION: Overall stable examination with right-sided Pleurx catheter in place with small right-sided pleural e ffusion and near complete opacification left hemithorax with known metastatic disease.
[2022-08-05 08:06] LABS: Basophils % (A) 0 %; Eosinophils # (A) 0.1 k/uL (0-0.7); Eosinophils % (A) 0 %; HCT 40.9 % (34.0-46.0); HGB 13.1 gm/dL (11.4-16.0); Lymphocytes # (A) 0.2 k/uL (1.0-4.8); Lymphocytes % (A) 2 %; MCH 30.4 pg (25.0-35.0); MCHC 32.1 g/dL (31.0-37.0); Mean Platelet Volume 7.6; Monocytes # (A) 0.3 k/uL (0-1.0); Monocytes % (A) 3 %; Neutrophils # (A) 10.3 k/uL (1.3-7.7); Neutrophils % (A) 94 %; Platelet Count 324 k/uL (150-450); RBC 4.31 m/uL (3.80-5.40); RDW 14.1 % (11.5-15.5); WBC 10.9 k/uL (3.8-10.6)
--- NOTE | 2022-08-05 08:26 | P.PN ---
Subjective Progress Note Date: 08/05/22 Principal diagnosis: Metastatic carcinoma of the breast with bilateral recurrent malignant pleural effusions. Past medical history significant for metastatic breast cancer, home oxygen dependent on 2 L nasal cannula, a recent right pneumothorax status post right thoracentesis and recurrent right pleural effusions, recurrent left pleural effusions status post 2 previous thoracentesis in February and March 2022 and medical debility. POD #1 right Pleurx catheter placement with fluoroscopic The patient was seen and examined in follow-up today 08/05/2022 at her bedside on the cardiac stepdown unit. The patient is sitting up in bed eating her breakfast, is awake, alert, oriented 3 and is in no acute apparent distress. The patient's is present at her bedside. She denies any complaints of pain at this time and reports her shortness of breath is much improved from yesterday since having the Pleurx catheter placement. She does still get episodes of shortness of breath with activity. Oxygen saturation are 98% on 2 L nasal cannula and she is unable to tolerate doing the incentive spirometry. Remote telemetry showing sinus tachycardia heart rate 101. She has been afebrile the last 24 hours. Right-sided Pleurx catheter is in place and connected to Pleur-evac on low continuous wall suction -20 cm H2O. No air leak is present. Draining thin serosanguineous drainage with 480 mL output in the last 8 hours and 750 mL output since placement. Chest x-ray reviewed. Objective - Vital Signs Vital signs: Vital Signs Temp 97.8 F 08/04/22 20:00 Pulse 104 H 08/05/22 02:00 Resp 18 08/05/22 02:00 BP 124/70 08/05/22 02:00 Pulse Ox 98 08/05/22 02:00 FiO2 Intake & Output 08/04/22 08/05/22 08/05/22 18:59 06:59 18:59 Intake Total 880 Output Total 3 600 Balance 877 -600 Intake: IV 100 Oral 780 Output: Chest Tube Drainage 600 Pleural Catheter Right 600 Lower Estimated Blood Loss 3 Other: Voiding Method Diaper # Voids 2 2 - Exam CONSTITUTIONAL: Appears comfortable, cooperative, no acute distress, sitting up in bed eating her breakfast. RESPIRATORY: Lungs sounds diminished throughout, left greater than right, few scattered crackles. No wheezes or rhonchi. Respirations are symmetrical and nonlabored. Currently on 2 L nasal cannula with oxygen saturation 98%. Unable to tolerate incentive spirometry. Strong cough. CARDIOVASCULAR: S1, S2 present. Regular tachycardic rate and rhythm. Palpable peripheral pulses bilaterally. No edema present. No calf pain or tenderness noted. Remote telemetry showing sinus tachycardia heart rate 101 BPM. GASTROINTESTINAL: Abdomen soft, nontender, nondistended. Active bowel sounds present 4 quadrants. Tolerating diet. GENITOURINARY: Continues to void. INTEGUMENTARY: Skin is warm and dry, no clubbing or cyanosis present. Dressing is clean, dry and intact to her right chest Pleurx catheter. NEUROLOGIC: Cranial nerves II through XII intact. No focal deficits. MUSKULOSKELETAL: Able to move all extremities, strength equal bilaterally, gait normal. Generalized weakness PSYCHIATRIC: Alert and oriented to person place and time, appropriate affect, intact judgment and insight. - Allied health notes Allied health notes reviewed: nursing - Labs CBC & Chem 7: 08/05/22 06:58 08/04/22 06:43 Labs: Abnormal Lab Results - Last 24 Hours (Table) 08/04/22 08/04/22 08/04/22 Range/Units 06:43 06:43 17:06 WBC (3.8-10.6) k/uL RBC 3.76 L (3.80-5.40) m/uL Neutrophils # 9.5 H (1.3-7.7) k/uL Lymphocytes # 0.1 L (1.0-4.8) k/uL Sodium 132 L (137-145) mmol/L Chloride 91 L (98-107) mmol/L Carbon Dioxide 36 H (22-30) mmol/L Creatinine 0.35 L (0.52-1.04) mg/dL Glucose 113 H (74-99) mg/dL POC Glucose (mg/dL) 237 H (70-110) mg/dL Total Protein 6.0 L (6.3-8.2) g/dL Albumin 3.2 L (3.5-5.0) g/dL TSH 0.363 L (0.465-4.680) mIU/L 08/04/22 08/05/22 08/05/22 Range/Units 20:12 06:05 06:58 WBC 10.9 H (3.8-10.6) k/uL RBC (3.80-5.40) m/uL Neutrophils # 10.3 H (1.3-7.7) k/uL Lymphocytes # 0.2 L (1.0-4.8) k/uL Sodium (137-145) mmol/L Chloride (98-107) mmol/L Carbon Dioxide (22-30) mmol/L Creatinine (0.52-1.04) mg/dL Glucose (74-99) mg/dL POC Glucose (mg/dL) 153 H 124 H (70-110) mg/dL Total Protein (6.3-8.2) g/dL Albumin (3.5-5.0) g/dL TSH (0.465-4.680) mIU/L Microbiology - Last 24 Hours (Table) 08/02/22 09:38 Blood Culture - Preliminary Blood - Imaging and Cardiology Chest x-ray: report reviewed, image reviewed Assessment and Plan Assessment: Recurrent right-sided malignant pleural effusion, status post 3 previous right- sided thoracentesis, recent right-sided pneumothorax, status post right-sided Pleurx catheter placement Metastatic breast cancer Chronic diagnosis involving the left lung with a loculated left-sided pleural effusion Acute on chronic hypoxic respiratory failure secondary to above, on home oxygen at 2 L nasal cannula COPD, on home oxygen at 2 L nasal cannula Dyspnea, secondary to above Chronic medical debility, cachectic Plan: Continue right sided Pleurx catheter to Pleur-evac and low continuous wall suction while in the hospital. Once the patient is going to be discharged home we will The Pleurx catheter and instructed the patient and family on care and drainage of the Pleurx catheter. manager retail has been consulted to arrange home care. Home care has been consulted for Pleurx catheter management and drainage. Oxygen management per pulmonary/critical care recommendations. Continue to encourage use of incentive spirometry 10 times every hour while awake. More recommendations follow based on patient's clinical course. Time with Patient: Greater than 30
[2022-08-05 08:51] LABS: African American GFR (CKD) >90 (>60 ml/min/1.73 sqM); Blood Urea Nitrogen 28 mg/dL (7-17); Chloride 92 mmol/L (98-107); Glucose 111 mg/dL (74-99); Non-African American GFR(CKD) >90 (>60 ml/min/1.73 sqM); Potassium 4.8 mmol/L (3.5-5.1); Sodium 133 mmol/L (137-145)
[2022-08-05 08:58] LABS: Anion Gap 4 mmol/L
[2022-08-05 09:01] LABS: Carbon Dioxide 37 mmol/L (22-30)
[2022-08-05] MEDS: VERAPAMIL 40 MG TAB PO SCH (09:10)
[2022-08-05] MEDS: SYMBICORT 80-4.5 MCG INHALER INHALATION SCH ×2 (09:14→22:13)
[2022-08-05] MEDS: IPRATROPIUM-ALBUTEROL 3 ML NEB INHALATION SCH ×4 (09:15→22:13)
[2022-08-05] MEDS: VERAPAMIL 80 MG TAB PO SCH ×3 (09:19→20:41)
[2022-08-05 11:53] LABS: Glucose,Whole Blood 134 mg/dL (70-110)
--- NOTE | 2022-08-05 14:13 | P.PN ---
Subjective Progress Note Date: 08/05/22 71-year-old female patient with known history of metastatic breast cancer and a malignant right-sided pleural effusion, presented to the hospital because of worsening shortness of breath. She is weak, cachectic, and emaciated. Her body mass index of 17.3. She came into the hospital he wakes back for the same reason. At that time, the patient underwent an IR guided right-sided thoracentesis and pleural fluid was aspirated and the fluid was essentially malignant consistent with metastatic breast cancer. The procedure was complicated by pneumothorax and following that the patient was given a pigtail catheter, pneumothorax was evacuated and the patient was discharged home. On today's evaluation, the patient's chest x-ray still showing right-sided pleural effusion possibly pneumothorax. A repeat chest x-ray was done and the patient was found to have a right-sided pneumothorax which was small. There was a right-sided pleural effusion which is increased compared to the earlier CAT scan images. There is collapse of the basilar right lower lobe and another loculated pocket of pleural fluid in the right lung measuring 9.1 cm in size. There is metastatic disease with pleural studding throughout the right hemithorax. There is also masslike areas of abnormalities in the anterior right lung base measuring up to 3.4 cm in size. There is also evidence of significant consolidation and volume loss involving the left lung. The patient a blood given the emergency department that showed a paced of 7.39 with a pCO2 of 64 and a pO2 of 71. Rest of the blood work shows a BUN of 15 and a creatinine of 0.3 and a sodium level is at 133. There was another 6.3 with a hemoglobin of 12.9. The rest of her breast cancer history is unavailable to me at this point in time and the patient was followed up by oncology. On today's evaluation of 08/03/2022, the patient is less short of breath comp ared to yesterday and she is awake and alert and the patient is currently on 4 L of oxygen by nasal cannula with a pulse ox of 96%. She is in sinus tachycardia the heart is ranging between 110 and 120. No chest pain. No altered mentation. The rest of the day 0.3 with a hemoglobin of 4.2 and a platelet count of 304. BUN is at 60 with a creatinine of 0.49. Sodium is at 132. This morning of 08/04/2022, the patient is less short of breath. A Pleurx catheter was inserted and immediately 800 mL of pleural fluid was aspirated from the right lung. The Pleurx catheter was connected to wall suction. The patient is doing well. Repeat chest x-ray shows significant improvement in the pleural effusion is recovered on the chest x-ray and there is no evidence of any pneumothorax. Family is at the bedside. The episodes of 9.9 with a hemoglobin of 11.7. BUN is at 70 with a creatinine of 0.3. Sodium is at 132. The patient is seen today 08/05/2022 in follow-up on the regular medical floor. She is currently sitting up in bed. Awake and alert in no acute distress. She did have a right-sided Pleurx catheter placed. Currently 800 ML's of serosanguineous drainage without since placement. Continues to be connected to Pleur-evac with slow continuous wall suction. No air leak noted. Chest x-ray reveals overall stable examination with a small right plural effusion and near complete opacification of the left hemithorax with known metastatic disease. Blood culture reveals no growth to date. White count 10.9. Hemoglobin 13.1. Platelets 324. Sodium 133. Potassium 4.8. Bicarb 37. BUN 28. Creatinine 0.49. Glucose 111. She remains on Symbicort, albuterol, IV Solu-Medrol. A ntibiotics in the form of ceftriaxone. Objective - Vital Signs Vital signs: Vital Signs Temp 98.2 F 08/05/22 09:50 Pulse 100 08/05/22 12:11 Resp 20 08/05/22 09:50 BP 113/66 08/05/22 09:50 Pulse Ox 97 08/05/22 09:50 FiO2 Intake & Output 08/04/22 08/05/22 08/05/22 18:59 06:59 18:59 Intake Total 880 358 Output Total 3 600 Balance 877 -600 358 Intake: IV 100 Oral 780 358 Output: Chest Tube Drainage 600 Pleural Catheter Right 600 Lower Estimated Blood Loss 3 Other: Voiding Method Diaper Diaper Diaper # Voids 2 2 1 - Exam GENERAL EXAM: Alert, frail, cachectic, 71-year-old female on 2 L nasal cannula, fairly comfortable in no apparent distress. HEAD: Normocephalic. EYES: Normal reaction of pupils, equal size. NOSE: Clear with pink turbinates. THROAT: No erythema or exudates. NECK: No masses, no JVD. CHEST: No chest wall deformity. LUNGS: Equal air entry with crackles, diminished in the right lung base. Diminished throughout the left lung. CVS: S1 and S2 normal with no audible murmur, regular rhythm. ABDOMEN: No hepatosplenomegaly, normal bowel sounds, no guarding or rigidity. SPINE: No scoliosis or deformity SKIN: No rashes CENTRAL NERVOUS SYSTEM: No focal deficits, tone is normal in all 4 extremities. EXTREMITIES: There is no peripheral edema. No clubbing, no cyanosis. Pe ripheral pulses are intact. - Labs CBC & Chem 7: 08/05/22 06:58 08/05/22 06:58 Labs: Abnormal Lab Results - Last 24 Hours (Table) 08/04/22 08/04/22 08/05/22 Range/Units 17:06 20:12 06:05 WBC (3.8-10.6) k/uL Neutrophils # (1.3-7.7) k/uL Lymphocytes # (1.0-4.8) k/uL Sodium (137-145) mmol/L Chloride (98-107) mmol/L Carbon Dioxide (22-30) mmol/L BUN (7-17) mg/dL Creatinine (0.52-1.04) mg/dL Glucose (74-99) mg/dL POC Glucose (mg/dL) 237 H 153 H 124 H (70-110) mg/dL 08/05/22 08/05/22 08/05/22 Range/Units 06:58 06:58 11:51 WBC 10.9 H (3.8-10.6) k/uL Neutrophils # 10.3 H (1.3-7.7) k/uL Lymphocytes # 0.2 L (1.0-4.8) k/uL Sodium 133 L (137-145) mmol/L Chloride 92 L (98-107) mmol/L Carbon Dioxide 37 H (22-30) mmol/L BUN 28 H (7-17) mg/dL Creatinine 0.49 L (0.52-1.04) mg/dL Glucose 111 H (74-99) mg/dL POC Glucose (mg/dL) 134 H (70-110) mg/dL Microbiology - Last 24 Hours (Table) 08/02/22 09:38 Blood Culture - Preliminary Blood Assessment and Plan Assessment: Metastatic breast cancer currently on Aromasin Malignant right-sided pleural effusion post iodine guided thoracentesis with evacuation of the right-sided pleural effusion. The patient has residual pleural fluid with loculated pocket of fluid measuring 9 cm in size in addition to a moderate-sized right-sided pleural effusion and compressive atelectatic changes in addition to abnormalities in the pleural surface indicating joy gnancy and it is involving the right hemithorax. The patient underwent a Pleurx catheter insertion and there is adequate symptomatic relief following the cath insertion patient's follow-up chest x-ray shows improvement in the volume status and the right-sided pleural effusion. No pneumothorax. Shortness of breath secondary to above which is currently stable, improved post- catheter insertion/Pleurx Right-sided pneumothorax related to previous thoracentesis and failure to achieve full expansion of the right lung Chronic diagnoses involving the left lung with a loculated left-sided pleural e ffusion Acute hypoxic respiratory failure secondary to above, currently on 3 L of O2 nasal cannula Chronic debility COPD maintain on Trelegy Ellipta on an outpatient basis Shortness of breath secondary to above Plan: The patient was seen and evaluated Chest x-ray, labs and medications reviewed Pleurx catheter remains in place to the right chest. Continue the current treatment plan Overall prognosis is quite poor CODE STATUS to be addressed We will continue to follow I have personally seen and examined the patient, performed the documentation and the assessment and plan as written. Number of minutes spent on the visit: 10.
--- NOTE | 2022-08-05 15:34 | P.PN ---
Subjective Progress Note Date: 08/05/22 Principal diagnosis: Shortness of breath, metastatic breast cancer In follow-up today patient has been is at the bedside. Patient is reporting breathing is much more comfortable after insertion of the Pleurx catheter. She has some discomfort at the site but nothing unusual or out of the ordinary. No other pain to report. She is dependent on oxygen. Objective - Vital Signs Vital signs: Vital Signs Temp 98.2 F 08/05/22 09:50 Pulse 100 08/05/22 12:11 Resp 20 08/05/22 09:50 BP 113/66 08/05/22 09:50 Pulse Ox 97 08/05/22 09:50 FiO2 Intake & Output 08/04/22 08/05/22 08/05/22 18:59 06:59 18:59 Intake Total 880 898 Output Total 3 600 Balance 877 -600 898 Intake: IV 100 Oral 780 898 Output: Chest Tube Drainage 600 Pleural Catheter Right 600 Lower Estimated Blood Loss 3 Other: Voiding Method Diaper Diaper Diaper # Voids 2 2 1 - Constitutional General appearance: Present: cooperative, disheveled, mild distress, thin - EENT Eyes: Present: anicteric sclerae, EOMI ENT: Present: hearing grossly normal - Respiratory Respiratory: bilateral: diminished (Very faint breath sounds bilaterally, anteriorly), rhonchi (Scattered posteriorly) - Cardiovascular Rhythm: regular Heart sounds: normal: S1, S2 Abnormal Heart Sounds: Absent: systolic murmur, diastolic murmur, rub, S3 Gallop, S4 Gallop, click, other - Peripheral edema leg Peripheral Edema: bilateral: None - Gastrointestinal General gastrointestinal: Present: normal bowel sounds, soft - Neurologic Neurologic: Present: CNII-XII intact - Musculoskeletal Musculoskeletal: Present: generalized weakness - Psychiatric Psychiatric: Present: A&O x's 3, appropriate affect, intact judgment & insight - Labs CBC & Chem 7: 08/05/22 06:58 08/05/22 06:58 Labs: Abnormal Lab Results - Last 24 Hours (Table) 08/04/22 08/04/22 08/05/22 Range/Units 17:06 20:12 06:05 WBC (3.8-10.6) k/uL Neutrophils # (1.3-7.7) k/uL Lymphocytes # (1.0-4.8) k/uL Sodium (137-145) mmol/L Chloride (98-107) mmol/L Carbon Dioxide (22-30) mmol/L BUN (7-17) mg/dL Creatinine (0.52-1.04) mg/dL Glucose (74-99) mg/dL POC Glucose (mg/dL) 237 H 153 H 124 H (70-110) mg/dL 08/05/22 08/05/22 08/05/22 Range/Units 06:58 06:58 11:51 WBC 10.9 H (3.8-10.6) k/uL Neutrophils # 10.3 H (1.3-7.7) k/uL Lymphocytes # 0.2 L (1.0-4.8) k/uL Sodium 133 L (137-145) mmol/L Chloride 92 L (98-107) mmol/L Carbon Dioxide 37 H (22-30) mmol/L BUN 28 H (7-17) mg/dL Creatinine 0.49 L (0.52-1.04) mg/dL Glucose 111 H (74-99) mg/dL POC Glucose (mg/dL) 134 H (70-110) mg/dL Microbiology - Last 24 Hours (Table) 08/02/22 09:38 Blood Culture - Preliminary Blood Assessment and Plan (1) Breast cancer metastasized to multiple sites Current Visit: Yes Status: Chronic Priority: High Code(s): C50.919 - MALIGNANT NEOPLASM OF UNSP SITE OF UNSPECIFIED FEMALE BREAST SNOMED Code(s): 962930995 Plan: Shortness of breath, progressive, right pleural effusion. -Patient had right Pleurx catheter placed on 08/04. Reports of improved breathing. -Patient has homecare ordered for management and education of using the Pleurx catheter -Continue O2 Metastatic breast cancer -Patient has been on her most current therapy since 05/10. -Patient's symptoms have progressed. This is most likely current therapy no longer effective. Current treatment has been held. -Discussed with patient's options for care including changing therapies versus pursuing to treat symptoms only. Patient would like to talk to her Primary Oncologist Dr. Romero before making any further decisions. This is perfectly reasonable, patient has an appointment with him in 3 days.
[2022-08-05 16:36] LABS: Glucose,Whole Blood 144 mg/dL (70-110)
--- NOTE | 2022-08-05 17:29 | P.PN ---
Subjective Progress Note Date: 08/05/22 Alice Boudreaux, is a 71-year-old female who presented to [facility] emergency room with a chief complaint of worsening shortness of breath and cough She was evaluated in the emergency room vital examination on presentation revealed a temperature of 97.8 pulse 117 respiration 22 left pressure 129/84 pulse ox 95% on 2 L nasal cannula Laboratory data revealed a white blood count of 6.3 hemoglobin 12.9 platelet count 353 sodium 133 potassium 4.8 chloride 90 CO2 36 BUN 13 creatinine 0.36 BNP 1620 Testing in the emergency room revealed chest x-ray done in the emergency room revealed right sided pneumothorax and right basilar increased density Patient was admitted to medical floor for further evaluation and treatment, she was started on IV antibiotics in the emergency room and IV steroids and inhaled bronchodilators, pulmonary consultation was requested Past medical history is significant for patient has a known history of breast cancer and lung cancer she has known history of recurrent pleural effusion she recently had thoracentesis with subsequent pneumothorax and pigtail placement and removal patient was discharged from the hospital last Friday On 08/03/2022 patient was seen and examined on the medical floor she is alert and oriented 3 in no apparent distress she is reporting improvement in her shortness of breath and cough, otherwise she denies any complaints there is no fever or chills no headache or dizziness no chest pain no palpitation no nausea or vomiting no abdominal pain no diarrhea and no urinary symptoms. Currently patient is maintained on IV antibiotics and IV steroids, will continue was current management awaiting further recommendation from pulmonary On 08/04/2022 patient was seen and examined on the medical floor she is alert and oriented 3 in no apparent distress she is reporting improvement in her shortness of breath and cough, otherwise she denies any complaints there is no fever or chills no headache or dizziness no chest pain no palpitation no nausea or vomiting no abdominal pain no diarrhea and no urinary symptoms. She underwent Pleurex catheter placement today. Currently patient is maintained on IV antibiotics and IV steroids, will continue was current management awaiting further recommendation from pulmonary On 08/05/2022 patient was seen and examined on the medical floor she is alert and oriented 3 in no apparent distress she is still complaining of occasional cough and shortness of breath with activity otherwise she denies any complaints there is no fever or chills no headache or dizziness no chest pain no palp itation no nausea or vomiting no abdominal pain no diarrhea and no urinary symptoms Objective - Vital Signs Vital signs: Vital Signs Temp 97.8 F 08/04/22 20:00 Pulse 104 H 08/05/22 02:00 Resp 18 08/05/22 02:00 BP 124/70 08/05/22 02:00 Pulse Ox 98 08/05/22 02:00 FiO2 Intake & Output 08/04/22 08/05/22 08/05/22 18:59 06:59 18:59 Intake Total 880 358 Output Total 3 600 Balance 877 -600 358 Intake: IV 100 Oral 780 358 Output: Chest Tube Drainage 600 Pleural Catheter Right 600 Lower Estimated Blood Loss 3 Other: Voiding Method Diaper Diaper # Voids 2 2 1 - Exam In general patient is alert and oriented x 3 in no distress HEENT head normocephalic and atraumatic Neck is supple no JVD no goiter no lymphadenopathy no carotid bruit Chest examination is clear to auscultation no crackles no wheezing Cardiac exam reveals regular heart sounds S1 and S2 no gallops no murmurs Abdomen is soft nontender no organomegaly with normal bowel sounds Extremity exam reveals no edema no cyanosis or clubbing Neurological examination reveals no gross focal deficits - Labs CBC & Chem 7: 08/05/22 06:58 08/05/22 06:58 Labs: Abnormal Lab Results - Last 24 Hours (Table) 08/04/22 08/04/22 08/05/22 Range/Units 17:06 20:12 06:05 WBC (3.8-10.6) k/uL Neutrophils # (1.3-7.7) k/uL Lymphocytes # (1.0-4.8) k/uL Sodium (137-145) mmol/L Chloride (98-107) mmol/L Carbon Dioxide (22-30) mmol/L BUN (7-17) mg/dL Creatinine (0.52-1.04) mg/dL Glucose (74-99) mg/dL POC Glucose (mg/dL) 237 H 153 H 124 H (70-110) mg/dL 08/05/22 08/05/22 Range/Units 06:58 06:58 WBC 10.9 H (3.8-10.6) k/uL Neutrophils # 10.3 H (1.3-7.7) k/uL Lymphocytes # 0.2 L (1.0-4.8) k/uL Sodium 133 L (137-145) mmol/L Chloride 92 L (98-107) mmol/L Carbon Dioxide 37 H (22-30) mmol/L BUN 28 H (7-17) mg/dL Creatinine 0.49 L (0.52-1.04) mg/dL Glucose 111 H (74-99) mg/dL POC Glucose (mg/dL) (70-110) mg/dL Microbiology - Last 24 Hours (Table) 08/02/22 09:38 Blood Culture - Preliminary Blood Assessment and Plan Plan: Acute hypoxic respiratory failure Underlying history of COPD Right basilar density with suspected pneumonia patient was started on IV antibiotic Rocephin and Zithromax in the emergency room will continue Right sided pleural effusion, malignant Right pneumothorax Underlying history of lung cancer Underlying history of breast cancer, with metastatic disease At this time patient was seen and examined Home medications reviewed and reordered Pulmonary consultation requested Will follow closely
[2022-08-05 20:39] LABS: Glucose,Whole Blood 140 mg/dL (70-110)
[2022-08-05] MEDS: LORazepam 0.5 MG TAB PO PRN (20:41)
[2022-08-05] MEDS: NON FORMULARY DRUG (Exemestane [Aromasin] 25 MG Tablet) PO SCH (20:42)
[2022-08-06 06:33] LABS: Glucose,Whole Blood 117 mg/dL (70-110)
[2022-08-06] MEDS: INSULIN ASPART (NovoLOG) 100 UNIT/ML VIAL SQ SCH ×2 (06:33→11:36)
[2022-08-06] MEDS: KETOROLAC 15 MG/ML 1 ML VIAL IVP SCH ×2 (06:33→11:36)
[2022-08-06] MEDS: SYMBICORT 80-4.5 MCG INHALER INHALATION SCH (08:47)
[2022-08-06] MEDS: IPRATROPIUM-ALBUTEROL 3 ML NEB INHALATION SCH ×2 (08:47→12:52)
[2022-08-06] MEDS: methylPREDNISolone SOD SUCCI 40 MG/ML 1 ML VIAL IV SCH (08:48)
[2022-08-06] MEDS: VERAPAMIL 80 MG TAB PO SCH (08:48)
--- NOTE | 2022-08-06 09:07 | P.PN ---
Subjective Progress Note Date: 08/06/22 Principal diagnosis: Metastatic carcinoma of the breast with bilateral recurrent malignant pleural effusions. Past medical history significant for metastatic breast cancer, home oxygen dependent on 2 L nasal cannula, a recent right pneumothorax status post right thoracentesis and recurrent right pleural effusions, recurrent left pleural effusions status post 2 previous thoracentesis in February and March 2022 and medical debility. POD #2 right Pleurx catheter placement with fluoroscopic. The patient was seen and examined in follow-up today 08/06/2022 at her bedside on the cardiac stepdown unit. Her is present at her bedside. The patient is sitting up in bed eating her breakfast, is awake, alert, oriented 3 and is in no acute distress. Denies any complaints of shortness of breath or discomfort at this time. Reports she feels somewhat improved today from yesterday. Oxygen saturation is 97% on 2 L nasal cannula. Remote telemetry showing sinus tachycardia heart rate 103 BPM. Right Pleurx catheter remains connected to Pleur-evac and low continuous wall suction -20 cm H2O. No air leak is present. Draining thin service drainage with 700 mL output in the last 24 hours. Pleurx catheter care and management will be taught to the patient and her today at the bedside. Discharge planning is in place. Objective - Vital Signs Vital signs: Vital Signs Temp 97.5 F L 08/06/22 04:00 Pulse 81 08/06/22 04:00 Resp 18 08/06/22 04:00 BP 111/75 08/06/22 04:00 Pulse Ox 92 L 08/06/22 04:00 FiO2 Intake & Output 08/05/22 08/06/22 08/06/22 18:59 06:59 18:59 Intake Total 898 Output Total 290 110 Balance 608 -110 Weight 31 kg Intake: Oral 898 Output: Chest Tube Drainage 290 110 Pleural Catheter Right 290 110 Lower Other: Voiding Method Diaper Bedside Commode Diaper # Voids 1 2 - Exam CONSTITUTIONAL: Appears comfortable, cooperative, no acute distress, sitting up in bed eating her breakfast. RESPIRATORY: Lungs sounds diminished throughout, left greater than right, few scattered crackles. No wheezes or rhonchi. Respirations are symmetrical and nonlabored. Currently on 2 L nasal cannula with oxygen saturation 97%. Strong cough. CARDIOVASCULAR: S1, S2 present. Regular tachycardic rate and rhythm. Palpable peripheral pulses bilaterally. No edema present. No calf pain or tenderness noted. Remote telemetry showing sinus tachycardia heart rate 103 BPM. GASTROINTESTINAL: Abdomen soft, nontender, nondistended. Active bowel sounds present 4 quadrants. Tolerating diet. GENITOURINARY: Continues to void. INTEGUMENTARY: Skin is warm and dry, no clubbing or cyanosis present. Dressing is clean, dry and intact to her right chest Pleurx catheter. NEUROLOGIC: Cranial nerves II through XII intact. No focal deficits. MUSKULOSKELETAL: Able to move all extremities, strength equal bilaterally, gait normal. Generalized weakness PSYCHIATRIC: Alert and oriented to person place and time, appropriate affect, intact judgment and insight. - Allied health notes Allied health notes reviewed: nursing - Labs CBC & Chem 7: 08/05/22 06:58 08/05/22 06:58 Labs: Abnormal Lab Results - Last 24 Hours (Table) 08/05/22 08/05/22 08/05/22 Range/Units 11:51 16:34 20:18 POC Glucose (mg/dL) 134 H 144 H 140 H (70-110) mg/dL 08/06/22 Range/Units 06:33 POC Glucose (mg/dL) 117 H (70-110) mg/dL Microbiology - Last 24 Hours (Table) 08/02/22 09:38 Blood Culture - Preliminary Blood Assessment and Plan Assessment: Recurrent right-sided malignant pleural effusion, status post 3 previous right- sided thoracentesis, recent right-sided pneumothorax, status post right-sided Pleurx catheter placement Metastatic breast cancer Chronic diagnosis involving the left lung with a loculated left-sided pleural effusion Acute on chronic hypoxic respiratory failure secondary to above, on home oxygen at 2 L nasal cannula COPD, on home oxygen at 2 L nasal cannula Dyspnea, secondary to above Chronic medical debility, cachectic Plan: Care and management of the Pleurx catheter has been instructed with the patient and her . The patient's demonstrated the Pleurx catheter care. May discharge home per the cardiothoracic surgery standpoint when okay with primary care and other consultants. retail general manager has been consulted to arrange home care. Home care has been consulted for Pleurx catheter management and drainage. Oxygen management per pulmonary/critical care recommendations. Continue to encourage use of incentive spirometry 10 times every hour while awake. More recommendations follow based on patient's clinical course. Time with Patient: Greater than 30
[2022-08-06 09:17] VITALS: RESP 16
[2022-08-06 11:49] LABS: Glucose,Whole Blood 125 mg/dL (70-110)
[2022-08-06 12:20] VITALS: BP 109/70; TEMP 98.2
--- NOTE | 2022-08-06 12:30 | P.DS ---
Providers Date of admission: 08/02/22 09:38 Expected date of discharge: 08/06/22 Attending physician: Meghann Seth Consults: 08/02/22 09:38 Consult Physician Routine Consulting Provider: Néstor Atwood Consult Reason/Comments: Pneumothorax, pneumonia, lung cancer Do you want consulting provider notified?: Yes 08/02/22 09:39 Consult Physician Routine Consulting Provider: Giuliano Romero Consult Reason/Comments: Lung cancer, status post patient Do you want consulting provider notified?: Yes 08/03/22 11:43 Consult Physician Routine Consulting Provider: Danny Jasso Consult Reason/Comments: PLEUREX CATH Do you want consulting provider notified?: Already Contacted Primary care physician: Sangita Knight [facility] Course: Diagnosis on discharge: Acute hypoxic respiratory failure Underlying history of COPD Right basilar density with suspected pneumonia patient was started on IV antibiotic Rocephin and Zithromax in the emergency room will continue Right sided pleural effusion, malignant Right pneumothorax Underlying history of lung cancer Underlying history of breast cancer, with metastatic disease Hospital course: Alice Boudreaux, is a 71-year-old female who presented to [facility] emergency room with a chief complaint of worsening shortness of breath and cough She was evaluated in the emergency room vital examination on presentation revealed a temperature of 97.8 pulse 117 respiration 22 left pressure 129/84 pulse ox 95% on 2 L nasal cannula Laboratory data revealed a white blood count of 6.3 hemoglobin 12.9 platelet count 353 sodium 133 potassium 4.8 chloride 90 CO2 36 BUN 13 creatinine 0.36 BNP 1620 Testing in the emergency room revealed chest x-ray done in the emergency room revealed right sided pneumothorax and right basilar increased density Patient was admitted to medical floor for further evaluation and treatment, she was started on IV antibiotics in the emergency room and IV steroids and inhaled bronchodilators, pulmonary consultation was requested Past medical history is significant for patient has a known history of breast cancer and lung cancer she has known history of recurrent pleural effusion she recently had thoracentesis with subsequent pneumothorax and pigtail placement and removal patient was discharged from the hospital last Friday On 08/03/2022 patient was seen and examined on the medical floor she is alert and oriented 3 in no apparent distress she is reporting improvement in her shortness of breath and cough, otherwise she denies any complaints there is no fever or chills no headache or dizziness no chest pain no palpitation no nausea or vomiting no abdominal pain no diarrhea and no urinary symptoms. Currently patient is maintained on IV antibiotics and IV steroids, will continue was current management awaiting further recommendation from pulmonary On 08/04/2022 patient was seen and examined on the medical floor she is alert and oriented 3 in no apparent distress she is reporting improvement in her shortness of breath and cough, otherwise she denies any complaints there is no fever or chills no headache or dizziness no chest pain no palpitation no nausea or vomiting no abdominal pain no diarrhea and no urinary symptoms. She underwent Pleurex catheter placement today. Currently patient is maintained on IV antibiotics and IV steroids, will continue was current management awaiting further recommendation from pulmonary On 08/05/2022 patient was seen and examined on the medical floor she is alert and oriented 3 in no apparent distress she is still complaining of occasional cough and shortness of breath with activity otherwise she denies any complaints there is no fever or chills no headache or dizziness no chest pain no palpitation no nausea or vomiting no abdominal pain no diarrhea and no urinary symptoms On 08/06/2022 patient was seen and examined on the medical floor she is alert and oriented 3 in no apparent distress she is feeling better with less cough and less shortness of breath there is no fever or chills no headache or dizziness no chest pain no nausea or vomiting no abdominal pain no diarrhea no blood in the stools no burning with urination no frequency or urgency and no hematuria. Case was discussed with thoracic surgery AMALIA Grant, patient was cleared for discharge she received education regarding Pleurx catheter. Case was also discussed with pulmonary, she was cleared for discharge, she will go home on a course of oral antibiotic and oral steroids. Follow-up with primary care physician within one week, follow-up with pulmonary in 1-2 weeks. Patient Condition at Discharge: Poor Plan - Discharge Summary Discharge Rx Participant: No New Discharge Prescriptions: New Ipratropium-Albuterol Nebulize [Duoneb 0.5 mg-3 mg/3 ml Soln] 3 ml INHALATION RT-QID each Albuterol Nebulized [Ventolin Nebulized] 2.5 mg INHALATION RT-Q2H PRN ml PRN Reason: Shortness Of Breath Or Wheezing cefUROXime axetiL [Cefuroxime] 500 mg PO BID #14 tab Verapamil [Isoptin] 80 mg PO TID tab predniSONE 10 mg PO DIRECTED 12 Days #30 tab Continue Exemestane [Aromasin] 25 mg PO HS Ondansetron [Zofran] 4 mg PO Q4H PRN PRN Reason: Nausea Fluticasone/Umeclidin/Vilanter [Trelegy Ellipta 100-62.5-25] 1 puff INHALATION RT-HS LORazepam [Ativan] 0.25 - 0.5 mg PO Q6H PRN PRN Reason: Anxiety Discontinued Everolimus 10 mg PO HS Discharge Medication List Exemestane [Aromasin] 25 mg PO HS 07/17/22 [History] Ondansetron [Zofran] 4 mg PO Q4H PRN 07/17/22 [History] Fluticasone/Umeclidin/Vilanter [Trelegy Ellipta 100-62.5-25] 1 puff INHALATION RT-HS 07/25/22 [History] LORazepam [Ativan] 0.25 - 0.5 mg PO Q6H PRN 08/02/22 [History] Albuterol Nebulized [Ventolin Nebulized] 2.5 mg INHALATION RT-Q2H PRN ml 08/06/22 [Rx] Ipratropium-Albuterol Nebulize [Duoneb 0.5 mg-3 mg/3 ml Soln] 3 ml INHALATION RT-QID each 08/06/22 [Rx] Verapamil [Isoptin] 80 mg PO TID tab 08/06/22 [Rx] cefUROXime axetiL [Cefuroxime] 500 mg PO BID #14 tab 08/06/22 [Rx] predniSONE 10 mg PO DIRECTED 12 Days #30 tab 08/06/22 [Rx] Follow up Appointment(s)/Referral(s): Giuliano Romero MD [STAFF PHYSICIAN] - 08/08/22 4:45 pm Sangita Knight MD [Primary Care Provider] - 1-2 days Néstor Atwood MD [STAFF PHYSICIAN] - 1 Week Activity/Diet/Wound Care/Special Instructions: PLEURX discharge instructions: 1. Home Care is ordered, they will obtain new bottles. 2. May shower after 24 hours, no tub baths/hot tubs. 3. Do not drain more than 1 liter or 1000 mL in 24 hours. 4. New drainage bottle needed with each drainage. 5. Drainage frequency dictated by patient symptoms, may be every day, every other day, weekly, or however often the patient is symptomatic. 6. Please notify HAND DRILLER or office if temperature >101F, excessive pain at insertion site, drainage consistency changes to cloudy or smells bad, catheter falls out, or anything else that concerns you. 7. Contact surgery office with weekly drainage amounts. May fax the amounts. 8. Once drainage is less than 50 mL three times in a row, notify the surgery office for possible removal. Surgery office: , fax Order for pleurex supplies sent to [facility] ([phone]) .
[2022-08-06 13:04] VITALS: PULSE 84
--- NOTE | 2022-08-06 13:41 | P.PN ---
Subjective Progress Note Date: 08/06/22 71-year-old female patient with known history of metastatic breast cancer and a malignant right-sided pleural effusion, presented to the hospital because of worsening shortness of breath. She is weak, cachectic, and emaciated. Her body mass index of 17.3. She came into the hospital he wakes back for the same reason. At that time, the patient underwent an IR guided right-sided thoracentesis and pleural fluid was aspirated and the fluid was essentially malignant consistent with metastatic breast cancer. The procedure was complicated by pneumothorax and following that the patient was given a pigtail catheter, pneumothorax was evacuated and the patient was discharged home. On today's evaluation, the patient's chest x-ray still showing right-sided pleural effusion possibly pneumothorax. A repeat chest x-ray was done and the patient was found to have a right-sided pneumothorax which was small. There was a right-sided pleural effusion which is increased compared to the earlier CAT scan images. There is collapse of the basilar right lower lobe and another loculated pocket of pleural fluid in the right lung measuring 9.1 cm in size. There is metastatic disease with pleural studding throughout the right hemithorax. There is also masslike areas of abnormalities in the anterior right lung base measuring up to 3.4 cm in size. There is also evidence of significant consolidation and volume loss involving the left lung. The patient a blood given the emergency department that showed a paced of 7.39 with a pCO2 of 64 and a pO2 of 71. Rest of the blood work shows a BUN of 15 and a creatinine of 0.3 and a sodium level is at 133. There was another 6.3 with a hemoglobin of 12.9. The rest of her breast cancer history is unavailable to me at this point in time and the patient was followed up by oncology. On today's evaluation of 08/03/2022, the patient is less short of breath comp ared to yesterday and she is awake and alert and the patient is currently on 4 L of oxygen by nasal cannula with a pulse ox of 96%. She is in sinus tachycardia the heart is ranging between 110 and 120. No chest pain. No altered mentation. The rest of the day 0.3 with a hemoglobin of 4.2 and a platelet count of 304. BUN is at 60 with a creatinine of 0.49. Sodium is at 132. This morning of 08/04/2022, the patient is less short of breath. A Pleurx catheter was inserted and immediately 800 mL of pleural fluid was aspirated from the right lung. The Pleurx catheter was connected to wall suction. The patient is doing well. Repeat chest x-ray shows significant improvement in the pleural effusion is recovered on the chest x-ray and there is no evidence of any pneumothorax. Family is at the bedside. The episodes of 9.9 with a hemoglobin of 11.7. BUN is at 70 with a creatinine of 0.3. Sodium is at 132. The patient is seen today 08/05/2022 in follow-up on the regular medical floor. She is currently sitting up in bed. Awake and alert in no acute distress. She did have a right-sided Pleurx catheter placed. Currently 800 ML's of serosanguineous drainage without since placement. Continues to be connected to Pleur-evac with slow continuous wall suction. No air leak noted. Chest x-ray reveals overall stable examination with a small right plural effusion and near complete opacification of the left hemithorax with known metastatic disease. Blood culture reveals no growth to date. White count 10.9. Hemoglobin 13.1. Platelets 324. Sodium 133. Potassium 4.8. Bicarb 37. BUN 28. Creatinine 0.49. Glucose 111. She remains on Symbicort, albuterol, IV Solu-Medrol. A ntibiotics in the form of ceftriaxone. The patient is seen today 08/06/2022 in follow-up on the regular medical floor. She is currently resting comfortably in bed. Awake and alert in no acute distr ess. Denies any worsening shortness of breath, cough or congestion. Her Pleurx catheter drained another 700 mL. She her have been educated on its use for home per CT services. She is continued on ceftriaxone, Symbicort, DuoNeb's and Solu-Medrol. Blood glucose 125. Objective - Vital Signs Vital signs: Vital Signs Temp 98.2 F 08/06/22 12:18 Pulse 84 08/06/22 13:03 Resp 16 08/06/22 12:18 BP 109/70 08/06/22 12:18 Pulse Ox 93 L 08/06/22 12:18 FiO2 Intake & Output 08/05/22 08/06/22 08/06/22 18:59 06:59 18:59 Intake Total 898 960 Output Total 290 110 Balance 608 -110 960 Weight 31 kg Intake: Oral 898 960 Output: Chest Tube Drainage 290 110 Pleural Catheter Right 290 110 Lower Other: Voiding Method Diaper Bedside Commode Bedside Commode Diaper Diaper # Voids 1 2 - Exam GENERAL EXAM: Alert, frail, cachectic, 71-year-old female on 2 L nasal cannula, fairly comfortable in no apparent distress. HEAD: Normocephalic. EYES: Normal reaction of pupils, equal size. NOSE: Clear with pink turbinates. THROAT: No erythema or exudates. NECK: No masses, no JVD. CHEST: No chest wall deformity. Right-sided Pleurx catheter in place to Pleur- evac. LUNGS: Equal air entry with crackles, diminished in the right lung base. Diminished throughout the left lung. CVS: S1 and S2 normal with no audible murmur, regular rhythm. ABDOMEN: No hepatosplenomegaly, normal bowel sounds, no guarding or rigidity. SPINE: No scoliosis or deformity SKIN: No rashes CENTRAL NERVOUS SYSTEM: No focal deficits, tone is normal in all 4 extremities. EXTREMITIES: There is no peripheral edema. No clubbing, no cyanosis. Peripheral pulses are intact. - Labs CBC & Chem 7: 08/05/22 06:58 08/05/22 06:58 Labs: Abnormal Lab Results - Last 24 Hours (Table) 08/05/22 08/05/22 08/06/22 Range/Units 16:34 20:18 06:33 POC Glucose (mg/dL) 144 H 140 H 117 H (70-110) mg/dL 08/06/22 Range/Units 11:35 POC Glucose (mg/dL) 125 H (70-110) mg/dL Microbiology - Last 24 Hours (Table) 08/02/22 09:38 Blood Culture - Preliminary Blood Assessment and Plan Assessment: Metastatic breast cancer currently on Aromasin Malignant right-sided pleural effusion post ultrasound guided thoracentesis with evacuation of the right-sided pleural effusion. The patient has residual pleural fluid with loculated pocket of fluid measuring 9 cm in size in addition to a moderate-sized right-sided pleural effusion and compressive atelectatic changes in addition to abnormalities in the pleural surface indicating malignancy and it is involving the right hemithorax. The patient underwent a Pleurx catheter insertion and there is adequate symptomatic relief following the catheter insertion follow-up chest x-ray shows improvement in the volume status and the right-sided pleural effusion. No pneumothorax. Shortness of breath secondary to above which is currently stable, improved post- catheter insertion/Pleurx stable on 2 L nasal cannula Right-sided pneumothorax related to previous thoracentesis and failure to achieve full expansion of the right lung Chronic diagnoses involving the left lung with a loculated left-sided pleural effusion Acute hypoxic respiratory failure secondary to above, currently on 3 L of O2 nasal cannula Chronic debility COPD maintain on Trelegy Ellipta on an outpatient basis Shortness of breath secondary to above Plan: The patient was seen and evaluated Medications reviewed Pleurx catheter remains in place to the right chest Patient and educated regarding home use Plan is for home with home care services Cleared for discharge from the pulmonary standpoint Continue her home pulmonary medications Complete a prednisone taper Complete a course of antibiotics Follow-up in the office in 1 week I have personally seen and examined the patient, performed the documentation and the assessment and plan as written. Number of minutes spent on the visit: 10.
[2022-08-06] MEDS: LORazepam 0.5 MG TAB PO PRN (14:17)
--- NOTE | 2022-08-06 17:39 | P.PN ---
Subjective Progress Note Date: 08/06/22 Principal diagnosis: Shortness of breath, metastatic breast cancer In follow-up today patient eating lunch, she looks more comfortable, reporting significant improvement in breathing. She now has just the pigtail drainage catheter. She denies any unusual pain. O2 dependent For about 2 weeks, O2 needs 2-3 L. Objective - Vital Signs Vital signs: Vital Signs Temp 98.2 F 08/06/22 12:18 Pulse 84 08/06/22 13:03 Resp 16 08/06/22 12:18 BP 109/70 08/06/22 12:18 Pulse Ox 93 L 08/06/22 12:18 FiO2 Intake & Output 08/05/22 08/06/22 08/06/22 18:59 06:59 18:59 Intake Total 898 960 Output Total 290 110 Balance 608 -110 960 Weight 31 kg Intake: Oral 898 960 Output: Chest Tube Drainage 290 110 Pleural Catheter Right 290 110 Lower Other: Voiding Method Diaper Bedside Commode Bedside Commode Diaper Diaper # Voids 1 2 - Constitutional General appearance: Present: cooperative, no acute distress, thin - EENT Eyes: Present: anicteric sclerae, EOMI ENT: Present: hearing grossly normal - Respiratory Details: Respirations are even and unlabored at rest compared to yesterday - Neurologic Neurologic: Present: CNII-XII intact (Grossly) - Musculoskeletal Musculoskeletal: Present: strength equal bilaterally - Psychiatric Psychiatric: Present: A&O x's 3, appropriate affect, intact judgment & insight - Labs CBC & Chem 7: 08/05/22 06:58 08/05/22 06:58 Labs: Abnormal Lab Results - Last 24 Hours (Table) 08/05/22 08/06/22 08/06/22 Range/Units 20:18 06:33 11:35 POC Glucose (mg/dL) 140 H 117 H 125 H (70-110) mg/dL Microbiology - Last 24 Hours (Table) 08/02/22 09:38 Blood Culture - Preliminary Blood Assessment and Plan (1) Breast cancer metastasized to multiple sites Status: Chronic Priority: High Code(s): C50.919 - MALIGNANT NEOPLASM OF UNSP SITE OF UNSPECIFIED FEMALE BREAST SNOMED Code(s): 911306403 Plan: Shortness of breath, progressive, right pleural effusion. -Patient had right Chest tube placed on 08/04, she now just has a Pleurx drain in place. Patient looks better, she reports of improved breathing. -Patient has home care ordered for management and education of using the Pleurx catheter -Continue O2 2-3L Metastatic breast cancer -Afinitor and Aromasin since 05/10. -Patient's symptoms have progressed, she is now having recurrent malignant ple ural effusion (Cytology positive 07/26/22). -Progressive disease on current therapy. Afinitor treatment has been held. Cont aromasin -Follow-up with Dr. Romero in 2 days in the office. They will discuss treatment options and develop future plan of care at that visit. Patient verbalized understanding and agrees with the plan From an Oncology standpoint patient is okay to be discharged once she has been cleared by Attending and other Consulted Specialists.
[2022-08-07 10:55] VITALS: BMI 14.8
--- NOTE | 2022-08-08 13:22 | CDI ---
Documentation Clarification Form Date: 08/08/2022 01:03:38 PM From: Linh Woodard Admit Date: 08/02/2022 09:38:00 AM Patient Name: Alice Boudreaux Visit Number: [id number] Discharge Date: 08/06/2022 02:25:00 PM ATTENTION: The Clinical Documentation Specialists (CDI) and [facility] Coding Staff appreciate your assistance in clarifying documentation. Please respond to the clarification below the line at the bottom and electronically sign. The CDI & [facility] Coding staff will review the response and follow-up if needed. Please note: Queries are made part of the Legal Health Record. If you have any questions, please contact the author of this message via ITS. Dr. Meghann Seth Emaciation and cachectic is documented in 08/02 consult and PN's 08/03, 08/04, 08/05 and 08/06. Malnourished is documented in Cardiac consult 08/04. is documented. Additional clarification regarding the severity of malnutrition is requested. History/Risk Factors: Pneumothorax, Acute and Chronic respiratory failure. Lung CA with mets and malignant pleural effusion. Breast CA and COPD Clinical Indicators: Current BMI: 14.8 Insufficient energy intake: Poor 25% of meals, difficult swallowing Weight Loss: RD Consult Assessment: Underweight Treatment: Patient on steroids, dietary supplement, soft chopped diet, dysphagia diet. Increase PO intake Dietary Consult: underweight only eating 25% meals Supplements: Ensure TID Lab monitoring: Albumin 3.2 Please clarify the type of malnutrition, if known: [ ] Mild Protein-Calorie Malnutrition [ ] Moderate Protein-Calorie Malnutrition [ xxx ] Severe Protein-Calorie Malnutrition [ ] Malnutrition, unspecified [ ] Malnutrition following GI surgery [ ] Other condition, please specify [ ] Unable to Determine MTDD
== END 2022-08-06 14:25 | disposition home or self-care (01) | DRG 199 ==
LOC: EC 07:30 → 5NMEDONC 09:38 → 3SCARD 18:05
PROVIDERS: ADMIT Internal Medicine; ATTEND Internal Medicine
PROC: 0W9930Z Drainage of Right Pleural Cavity with Drainage Device, Percutaneous Approach (ICD-10-PCS; principal; 2022-08-04 09:00)
DX: J93.9 Pneumothorax, unspecified (principal); E43 Unspecified severe protein-calorie malnutrition; J96.21 Acute and chronic respiratory failure with hypoxia; J18.9 Pneumonia, unspecified organism; C34.90 Malignant neoplasm of unspecified part of unspecified bronchus or lung; C79.9 Secondary malignant neoplasm of unspecified site; J91.0 Malignant pleural effusion; Z68.1 Body mass index [BMI] 19.9 or less, adult; J98.11 Atelectasis; J44.0 Chronic obstructive pulmonary disease with (acute) lower respiratory infection; R64 Cachexia; C50.912 Malignant neoplasm of unspecified site of left female breast; Z79.52 Long term (current) use of systemic steroids; Z79.811 Long term (current) use of aromatase inhibitors; Z80.3 Family history of malignant neoplasm of breast; Z85.118 Personal history of other malignant neoplasm of bronchus and lung; Z99.81 Dependence on supplemental oxygen; Z92.21 Personal history of antineoplastic chemotherapy; Z79.899 Other long term (current) drug therapy; Z71.3 Dietary counseling and surveillance
CPT/HCPCS: 36415; 36600; 71045; 71046; 71260; 80048; 80053; 82805; 83605; 83735; 83880; 84439; 84443; 84484; 85025; 85610; 85730; 87040; 87070; 87205; 88108; 88305; 88341; 88342; 93005; 94640; 94760; 96365; 96366; 96368; 96375; 99285

== ENCOUNTER 2022-12-05 03:16 | Inpatient (IN) | payer MEDICARE, BC ==
--- NOTE | 2022-12-05 03:39 | ED ---
General Adult HPI - General Chief complaint: Shortness of Breath Stated complaint: SOB Time Seen by Provider: 12/05/22 03:23 Source: patient, family, RN notes reviewed, old records reviewed Mode of arrival: ambulatory Limitations: no limitations - History of Present Illness Initial comments: 72-year-old female with metastatic breast cancer history of recurrent pleural effusion status post Pleurx catheter placed in July of this year. Patient has had worsening dyspnea over the past several days and hypoxia with increased oxygen requirements today. No fever. No cough. - Related Data Home Medications Medication Instructions Recorded Confirmed Exemestane [Aromasin] 25 mg PO HS 07/17/22 08/02/22 Ondansetron [Zofran] 4 mg PO Q4H PRN 07/17/22 08/02/22 Fluticasone/Umeclidin/Vilanter 1 puff INHALATION RT-HS 07/25/22 08/02/22 [Trelegy Ellipta 100-62.5-25] LORazepam [Ativan] 0.25 - 0.5 mg PO Q6H PRN 08/02/22 08/02/22 Previous Rx's Medication Instructions Recorded Albuterol Nebulized [Ventolin 2.5 mg INHALATION RT-Q2H PRN ml 08/06/22 Nebulized] Ipratropium-Albuterol Nebulize 3 ml INHALATION RT-QID each 08/06/22 [Duoneb 0.5 mg-3 mg/3 ml Soln] Verapamil [Isoptin] 80 mg PO TID tab 08/06/22 cefUROXime axetiL [Cefuroxime] 500 mg PO BID #14 tab 08/06/22 predniSONE 10 mg PO DIRECTED 12 Days #30 08/06/22 tab Allergies Allergy/AdvReac Type Severity Reaction Status Date / Time No Known Allergies Allergy Verified 12/05/22 03:33 Review of Systems ROS Statement: Those systems with pertinent positive or pertinent negative responses have been documented in the HPI. ROS Other: All systems not noted in ROS Statement are negative. Past Medical History Past Medical History: Cancer Additional Past Medical History / Comment(s): breast ca, lung CA History of Any Multi-Drug Resistant Organisms: None Reported Past Surgical History: Breast Surgery Additional Past Surgical History / Comment(s): lt masectomy, right-sided thoracentesis 3 Past Anesthesia/Blood Transfusion Reactions: No Reported Reaction Past Psychological History: No Psychological Hx Reported Smoking Status: Never smoker Past Alcohol Use History: None Reported Past Drug Use History: None Reported - Past Family History Mother Family Medical History: Cancer Additional Family Medical History / Comment(s): Breast cancer on both sides of family. General Exam General appearance: alert, in distress, cachectic Head exam: Present: atraumatic, normocephalic Eye exam: Present: normal appearance, PERRL ENT exam: Present: normal exam Neck exam: Present: normal inspection. Absent: tenderness, meningismus Respiratory exam: Present: respiratory distress, decreased breath sounds Cardiovascular Exam: Present: normal rhythm, tachycardia GI/Abdominal exam: Present: soft Neurological exam: Present: alert, oriented X3 Psychiatric exam: Present: normal affect, normal mood Skin exam: Present: warm, dry, intact Course Vital Signs 12/05/22 12/05/22 12/05/22 03:29 04:43 04:44 Temperature 98 F Pulse Rate 120 H 114 H Respiratory 25 H 20 20 Rate Blood Pressure 141/90 113/77 O2 Sat by Pulse 95 95 Oximetry 12/05/22 05:14 Temperature Pulse Rate 106 H Respiratory 20 Rate Blood Pressure 102/62 O2 Sat by Pulse Oximetry Medical Decision Making - Medical Decision Making Was pt. sent in by a medical professional or institution (, PA, UNLOADER OPERATOR, urgent care, hospital, or skilled nursing...) When possible be specific @ -No Did you speak to anyone other than the patient for history (EMS, parent, family, police, friend...)? What history was obtained from this source @ -Patient's Did you review nursing and triage notes (agree or disagree)? Why? @ -I reviewed and agree with nursing and triage notes Were old charts reviewed (outside hosp., previous admission, EMS record, old EKG, old radiological studies, urgent care reports/EKG's, skilled nursing records)? Report findings @ -No old charts were reviewed Differential Diagnosis (chest pain, altered mental status, abdominal pain women, abdominal pain men, vaginal bleeding, weakness, fever, dyspnea, syncope, headache, dizziness, GI bleed, back pain, seizure, CVA, palpatations, mental health, musculoskeletal)? @ -Differential Dyspnea: Coronary syndrome, arrhythmia, tamponade, asthma, COPD, pulmonary embolism, pneumonia, pneumothorax, pulmonary effusion, anaphylaxis, diabetic ketoacidosis, flailed chest, pulmonary contusion, diaphragmatic rupture, anemia, neuromuscular, this is not meant to be an all-inclusive list. EKG interpreted by me (3pts min.). @ -EKG: Sinus tachycardia rate 1:15 SD interval 156, QRS duration 102, QTC 381 left anterior fascicular block. X-rays interpreted by me (1pt min.). @ -Chest x-ray shows near complete opacification left hemithorax CT interpreted by me (1pt min.). @ CT chest and pelvis pending U/S interpreted by me (1pt. min.). @ -None done What testing was considered but not performed or refused? (CT, X-rays, U/S, labs)? Why? @ -None What meds were considered but not given or refused? Why? @ -None Did you discuss the management of the patient with other professionals (professionals i.e. , PA, UNLOADER OPERATOR, lab, RT, psych nurse, manager social responsibility, court liaison, teacher, security police officer, returned case inspector)? Give summary @ -[Dr. Seth Was smoking cessation discussed for >3mins.? @ -No Was critical care preformed (if so, how long)? @ -No Were there social determinants of health that impacted care today? How? (Homelessness, low income, unemployed, alcoholism, drug addiction, transportation, low edu. Level, literacy, decrease access to med. care, fpc, rehab)? @ -No Was there de-escalation of care discussed even if they declined (Discuss DNR or withdrawal of care, Hospice)? DNR status @ -No What co-morbidities impacted this encounter? (DM, HTN, Smoking, COPD, CAD, Cancer, CVA, ARF, Chemo, Hep., AIDS, mental health diagnosis, sleep apnea, morbid obesity)? @ -[Metastatic breast cancer Was patient admitted / discharged? Hospital course, mention meds given and route, prescriptions, significant lab abnormalities, going to OR and other pertinent info. @ -9-year-old female with worsening hypoxia and dyspnea. Patient has no air entry on the left and decreased air entry on the right. She is acutely ill, cachectic, tachypneic. Increased oxygen requirements. I did have a lengthy discussion regarding CODE STATUS and the patient states she is a DO NOT RESUSCITATE. She has an elevated white blood cell count, bili elevated lactic. She's hyponatremic, hypochloremic. She has a right Pleurx catheter which is scheduled for removal. Patient will be admitted to internal medicine with both pulmonology and oncology on consult. Prognosis guarded. Undiagnosed new problem with uncertain prognosis? @ -No Drug Therapy requiring intensive monitoring for toxicity (Heparin, Nitro, Insulin, Cardizem)? @ -No Were any procedures done? @ -No Diagnosis/symptom? @ -[Left pleural effusion, metastatic breast cancer, hypoxia Acute, or Chronic, or Acute on Chronic? @ -Acute on chronic Uncomplicated (without systemic symptoms) or Complicated (systemic symptoms)? @ -[complicated Side effects of treatment? @ -No Exacerbation, Progression, or Severe Exacerbation? @ -No Poses a threat to life or bodily function? How? (Chest pain, [place], [place], pneumonia, PE, COPD, DKA, ARF, appy, cholecystitis, CVA, Diverticulitis, Homicidal, Suicidal, threat to staff... and all critical care pts) @ -[yes - Lab Data Result diagrams: 12/05/22 03:27 12/05/22 04:19 Lab Results 12/05/22 12/05/22 12/05/22 Range/Units 03:27 03:27 03:27 WBC 20.1 H (3.8-10.6) k/uL RBC 3.89 (3.80-5.40) m/uL Hgb 13.4 (11.4-16.0) gm/dL Hct 40.1 (34.0-46.0) % MCV 102.9 H (80.0-100.0) fL MCH 34.3 (25.0-35.0) pg MCHC 33.3 (31.0-37.0) g/dL RDW 12.3 (11.5-15.5) % Plt Count 251 (150-450) k/uL MPV 7.7 Neutrophils % 92 % Lymphocytes % 2 % Monocytes % 5 % Eosinophils % 0 % Basophils % 0 % Neutrophils # 18.5 H (1.3-7.7) k/uL Lymphocytes # 0.4 L (1.0-4.8) k/uL Monocytes # 1.0 (0-1.0) k/uL Eosinophils # 0.1 (0-0.7) k/uL Basophils # 0.0 (0-0.2) k/uL Macrocytosis Slight PT 11.4 (10.0-12.5) sec INR 1.1 (<1.2) APTT 24.6 (22.0-30.0) sec Sodium 126 L (137-145) mmol/L Potassium 4.2 (3.5-5.1) mmol/L Chloride 74 L* (98-107) mmol/L Carbon Dioxide 41 H* (22-30) mmol/L Anion Gap 11 mmol/L BUN 21 H (7-17) mg/dL Creatinine 0.23 L (0.52-1.04) mg/dL Est GFR (CKD-EPI)AfAm >90 (>60 ml/min/1.73 sqM) Est GFR (CKD-EPI)NonAf >90 (>60 ml/min/1.73 sqM) Glucose 159 H (74-99) mg/dL Plasma Lactic Acid Patrick (0.7-2.0) mmol/L Calcium 9.3 (8.4-10.2) mg/dL Magnesium 1.8 (1.6-2.3) mg/dL Total Bilirubin 1.1 (0.2-1.3) mg/dL AST 47 H (14-36) U/L ALT 40 H (4-34) U/L Alkaline Phosphatase 75 (38-126) U/L Troponin I (0.000-0.034) ng/mL NT-Pro-B Natriuret Pep 1570 pg/mL Total Protein 6.9 (6.3-8.2) g/dL Albumin 3.8 (3.5-5.0) g/dL 12/05/22 12/05/22 12/05/22 Range/Units 03:27 03:27 04:19 WBC (3.8-10.6) k/uL RBC (3.80-5.40) m/uL Hgb (11.4-16.0) gm/dL Hct (34.0-46.0) % MCV (80.0-100.0) fL MCH (25.0-35.0) pg MCHC (31.0-37.0) g/dL RDW (11.5-15.5) % Plt Count (150-450) k/uL MPV Neutrophils % % Lymphocytes % % Monocytes % % Eosinophils % % Basophils % % Neutrophils # (1.3-7.7) k/uL Lymphocytes # (1.0-4.8) k/uL Monocytes # (0-1.0) k/uL Eosinophils # (0-0.7) k/uL Basophils # (0-0.2) k/uL Macrocytosis PT (10.0-12.5) sec INR (<1.2) APTT (22.0-30.0) sec Sodium 125 L (137-145) mmol/L Potassium 3.9 (3.5-5.1) mmol/L Chloride 75 L (98-107) mmol/L Carbon Dioxide 46 H* (22-30) mmol/L Anion Gap 4 mmol/L BUN 21 H (7-17) mg/dL Creatinine 0.29 L (0.52-1.04) mg/dL Est GFR (CKD-EPI)AfAm >90 (>60 ml/min/1.73 sqM) Est GFR (CKD-EPI)NonAf >90 (>60 ml/min/1.73 sqM) Glucose 135 H (74-99) mg/dL Plasma Lactic Acid Patrick 2.5 H* (0.7-2.0) mmol/L Calcium 9.2 (8.4-10.2) mg/dL Magnesium (1.6-2.3) mg/dL Total Bilirubin (0.2-1.3) mg/dL AST (14-36) U/L ALT (4-34) U/L Alkaline Phosphatase (38-126) U/L Troponin I 0.013 (0.000-0.034) ng/mL NT-Pro-B Natriuret Pep pg/mL Total Protein (6.3-8.2) g/dL Albumin (3.5-5.0) g/dL Disposition Clinical Impression: Breast cancer metastasized to multiple sites, Pleural effusion, Pneumonia Disposition: ADMITTED IP TO THIS HOSP Condition: Serious Is patient prescribed a controlled substance at d/c from ED?: No Referrals: Sangita Knight MD [Primary Care Provider] - 1-2 days Time of Disposition: 05:59
[2022-12-05 03:43] LABS: Basophils % (A) 0 %; Eosinophils # (A) 0.1 k/uL (0-0.7); Eosinophils % (A) 0 %; HCT 40.1 % (34.0-46.0); HGB 13.4 gm/dL (11.4-16.0); Lymphocytes # (A) 0.4 k/uL (1.0-4.8); Lymphocytes % (A) 2 %; MCH 34.3 pg (25.0-35.0); MCHC 33.3 g/dL (31.0-37.0); MCV 102.9 fL (80.0-100.0); Macrocytosis Slight; Mean Platelet Volume 7.7; Monocytes % (A) 5 %; Neutrophils # (A) 18.5 k/uL (1.3-7.7); Neutrophils % (A) 92 %; Platelet Count 251 k/uL (150-450); RBC 3.89 m/uL (3.80-5.40); RDW 12.3 % (11.5-15.5); WBC 20.1 k/uL (3.8-10.6)
[2022-12-05 03:54] LABS: INR 1.1 (<1.2); Partial Thromboplastin Time 24.6 sec (22.0-30.0); Prothrombin Time 11.4 sec (10.0-12.5)
[2022-12-05 04:03] LABS: ALT 40 U/L (4-34); AST 47 U/L (14-36); African American GFR (CKD) >90 (>60 ml/min/1.73 sqM); Albumin 3.8 g/dL (3.5-5.0); Alkaline Phosphatase 75 U/L (38-126); Blood Urea Nitrogen 21 mg/dL (7-17); Calcium 9.3 mg/dL (8.4-10.2); Glucose 159 mg/dL (74-99); Magnesium 1.8 mg/dL (1.6-2.3); Non-African American GFR(CKD) >90 (>60 ml/min/1.73 sqM); Potassium 4.2 mmol/L (3.5-5.1); Sodium 126 mmol/L (137-145); Total Bilirubin 1.1 mg/dL (0.2-1.3); Total Protein 6.9 g/dL (6.3-8.2)
[2022-12-05 04:09] LABS: Anion Gap 11 mmol/L
[2022-12-05 04:11] LABS: Chloride 74 mmol/L (98-107); NT-Pro-B-Type Natriuretic Pept 1570 pg/mL
[2022-12-05 04:12] LABS: Carbon Dioxide 41 mmol/L (22-30)
[2022-12-05] MEDS ORDERED: AZITHROMYCIN 500 MG in SODIUM CHLORIDE 0.9% 250 ML IVPB STA (04:14)
[2022-12-05 05:07] LABS: African American GFR (CKD) >90 (>60 ml/min/1.73 sqM); Blood Urea Nitrogen 21 mg/dL (7-17); Calcium 9.2 mg/dL (8.4-10.2); Chloride 75 mmol/L (98-107); Glucose 135 mg/dL (74-99); Non-African American GFR(CKD) >90 (>60 ml/min/1.73 sqM); Potassium 3.9 mmol/L (3.5-5.1); Sodium 125 mmol/L (137-145)
[2022-12-05 05:13] LABS: Anion Gap 4 mmol/L
[2022-12-05 05:16] LABS: Carbon Dioxide 46 mmol/L (22-30)
[2022-12-05] MEDS ORDERED: HYDROmorphone 0.5 MG/0.5 ML SYRINGE IVP PRN (05:52)
[2022-12-05] MEDS ORDERED: NALOXONE 0.4 MG/ML 1 ML VIAL IV PRN (05:52)
--- NOTE | 2022-12-05 05:52 | XR ---
EXAM: XR Chest, 1 View CLINICAL HISTORY: ITS.REASON XR Reason: lilia TECHNIQUE: Frontal view of the chest. COMPARISON: 11/27/2022 FINDINGS: Lungs: Continued near complete opacification in the left lung. There is some increased interstitial and airspace disease in the right lung. Pleural space: Bilateral pleural thickening. Bilateral pleural effusions, greater on the left. Loculated left pleural effusion. Heart: Enlarged cardiac silhouette is stable. Mediastinum: Deviation of the trachea to the left. Bones/joints: Osteopenia. Soft tissues: Left breast implant with peripheral calcifications. Left axillary clips. Tubes, lines and devices: Right-sided pleural catheter. IMPRESSION: 1. Continued near complete opacification in the left lung. 2. There is some increased interstitial and airspace disease in the right lung. 3. Enlarged cardiac silhouette is stable. 4. Bilateral pleural thickening. Bilateral pleural effusions, greater on the left. Loculated left pleural effusion.
--- NOTE | 2022-12-05 06:21 | CT ---
EXAM: CT Chest With Intravenous Contrast CLINICAL HISTORY: ITS.REASON CT Reason: IVAN/Cancer TECHNIQUE: Axial computed tomography images of the chest with intravenous contrast. CTDI is 5 mGy and DLP is 256.1 mGy-cm. This CT exam was performed using one or more of the following dose reduction techniques: automated exposure control, adjustment of the mA and/or kV according to patient size, and/or use of iterative reconstruction technique. COMPARISON: 08/02/2022 FINDINGS: Lungs: Continued consolidation and atelectasis in the left lung. There is some increased interstitial septal thickening and groundglass opacification in the right lung. There is some bronchiectasis in the left lung. Pleural space: Continued moderate loculated left pleural effusion. Small right pleural effusion. Bilateral pleural thickening and nodularity. No pneumothorax. Heart: Extensive coronary calcification. Mild cardiomegaly. No significant pericardial effusion. Bones/joints: New mild compression fractures at T1 and T2. Sclerotic changes in the T1 vertebral body. New compression fracture at T11. Osteopenia. There are some sclerotic foci in the ribs. Chronic compression fracture T7. No dislocation. Soft tissues: Left mastectomy and peripheral calcified breast implant. Vasculature: Calcified plaque thoracic aorta. No thoracic aortic aneurysm. Lymph nodes: Left axillary lymph node dissection. Tubes, lines and devices: Right-sided pleural catheter. Other findings: Nodular. Nodularity along the right major and minor fissures. IMPRESSION: 1. New mild compression fractures at T1 and T2. Sclerotic changes in the T1 vertebral body. 2. New compression fracture at T11. 3. Continued consolidation and atelectasis in the left lung. 4. Evidence of lung malignancy and some progression of metastatic disease. 5. Osteopenia. 6. Continued moderate loculated left pleural effusion. 7. Increased interstitial and airspace disease in right lung. Findings suggestive of lymphangitic spread of tumor. 8. Small right pleural effusion. 9. Bilateral pleural thickening and nodularity. 10. Chronic compression fracture T7. 11. Mild cardiomegaly. Coronary artery disease. EXAM: CT Abdomen and Pelvis With Intravenous Contrast CLINICAL HISTORY: ITS.REASON CT Reason: IVAN/Cancer TECHNIQUE: Axial computed tomography images of the abdomen and pelvis with intravenous contrast. CTDI is 5 mGy and DLP is 256.1 mGy-cm. This CT exam was performed using one or more of the following dose reduction techniques: automated exposure control, adjustment of the mA and/or kV according to patient size, and/or use of iterative reconstruction technique. COMPARISON: 01/11/2022 FINDINGS: ABDOMEN: Liver: Low-attenuation in the liver. Gallbladder and bile ducts: Unremarkable. No calcified stones. No ductal dilation. Pancreas: Unremarkable. No mass. No ductal dilation. Spleen: Unremarkable. No splenomegaly. Adrenals: Unremarkable. No mass. Kidneys and ureters: Unremarkable. No solid mass. No hydronephrosis. Stomach and bowel: Colonic diverticulosis. No obstruction. No mucosal thickening. PELVIS: Appendix: No findings to suggest acute appendicitis. Bladder: Unremarkable. No mass. Reproductive: Small calcified uterine fibroids. ABDOMEN and PELVIS: Intraperitoneal space: Unremarkable. No free air. No significant fluid collection. Bones/joints: New fractures of the right superior and inferior pubic rami. Subacute fracture of the right sacral ala. Osteopenia. No dislocation. Soft tissues: Unremarkable. Vasculature: Calcified and noncalcified plaque abdominal aorta and branches. No abdominal aortic aneurysm. Lymph nodes: Unremarkable. No enlarged lymph nodes. IMPRESSION: 1. New fractures of the right superior and inferior pubic rami. 2. Subacute fracture of the right sacral ala. 3. Colonic diverticulosis.
[2022-12-05] MEDS: SODIUM CHLORIDE 0.9% 1,000 ML IV SCH ×2 (06:47→23:06)
[2022-12-05] MEDS ORDERED: IPRATROPIUM-ALBUTEROL 3 ML NEB INHALATION PRN (08:00)
--- NOTE | 2022-12-05 08:03 | P.CNPUL ---
History of Present Illness Consult date: 12/05/22 Requesting physician: German Garcia Reason for consult: pleural effusion Chief complaint: Shortness breath, generalized weakness, fall History of present illness: I am seeing this patient in new consultation today 12/05/2022 in the emergency room after she presented earlier this morning complaining of progressively worsening shortness of breath over the last several weeks. She has also been very weak, and fell yesterday while going to the bathroom. Patient is a 72-year-old white female with past medical history significant for metastatic breast cancer, recurrent malignant pleural effusions with multiple previous thoracentesis. Her oncologist is Dr. Romero. She is on hormonal therapy. Patient has received multiple previous bilateral thoracentesis. She did have a right Pleurx catheter placed back in July,. She continues to drain her catheter weekly, but output has been minimal. There are plans to remove the catheter. Patient presented to emergency room earlier this morning with complaints of generalized weakness over the last couple weeks, and actually fell while am bulating to the bathroom yesterday. Patient's is at bedside, and states that he had to pick her up. She denies hitting her head. She is severely cachectic and weak. She states that she has also been progressively more short of breath. She normally wears 2 L/m nasal cannula, but her oxygen demands have recently increased. Denies any fevers, chills, chest pain. She has had a minimally productive cough. Denies any urinary complaints. Denies any abdominal pain, nausea or vomiting, diarrhea. She's had a poor appetite. CT of the chest, abdomen, and pelvis demonstrated a small right pleural effusion without any pneumothorax. There was bilateral pleural thickening and nodularity. There was a chronic moderate size loculated left pleural effusion with associated atelectasis. Increased interstitial and airspace disease in the right lung suggestive of lymphangitic spread of the tumor. There were new fractures of the right superior and inferior pubic rami, subacute fracture of the right sacral ala, new mild compression fractures of T1, T2, T11. There is a chronic compression fracture of T7. Patient is currently lying in bed, very weak and cachectic, on 4 L nasal cannula. SpO2 is 95%. Heart rhythm appears sinus tachycardia bedside monitor. Blood pressure is currently normotensive.. Denies any significant pain. CBC on arrival showed some leukocytosis with a WBC count of 20.1, hemoglobin 13.4, hematocrit 40.1, platelets 251. Most recent BMP has a sodium 125, potassium 3.9, chloride 75, serum bicarbonate 46, BUN 21, creatinine 0.29, glucose 135. Troponin 0.013 on arrival. NT proBNP 1570. Normal saline is currently infusing at 50 ML's per hour. She has received doses of azithromycin and Rocephin. She is afebrile. Patient is being admitted to the hospital. Her overall prognosis is guarded. Review of Systems REVIEW OF SYSTEMS: CONSTITUTIONAL: Admits significant weight loss, worsening generalized weakness and fatigue over the last couple weeks, poor appetite. EYES: Denies change in vision. EARS, NOSE, MOUTH, THROAT: Denies headaches, denies sore throat. CARDIOVASCULAR: Denies chest pain, palpitations or syncopal episodes. RESPIRATORY: Admits shortness of breath even at rest. She's had a minimally productive cough. Denies any chest pain, hemoptysis.. GASTROINTESTINAL: Denies abdominal pain, nausea and vomiting, or diarrhea. Admits poor appetite. GENITOURINARY: Denies hematuria, denies infections. MUSKULOSKELETAL: Denies pain, denies swelling. INTEGUMENTARY: Denies rash, denies eczema. NEUROLOGICAL: Denies recent memory loss, no recent seizure activity. PSYCHIATRIC: Denies anxiety, denies depression. HEMATOLOGIC/LYMPHATIC: Denies anemia, denies enlarged lymph node Past Medical History Past Medical History: Cancer Additional Past Medical History / Comment(s): breast ca, lung CA History of Any Multi-Drug Resistant Organisms: None Reported Past Surgical History: Breast Surgery Additional Past Surgical History / Comment(s): lt masectomy, right-sided thoracentesis 3 Past Anesthesia/Blood Transfusion Reactions: No Reported Reaction Past Psychological History: No Psychological Hx Reported Smoking Status: Never smoker Past Alcohol Use History: None Reported Past Drug Use History: None Reported - Past Family History Mother Family Medical History: Cancer Additional Family Medical History / Comment(s): Breast cancer on both sides of family. Medications and Allergies Home Medications Medication Instructions Recorded Confirmed Type Exemestane [Aromasin] 25 mg PO HS 07/17/22 12/05/22 History Ondansetron [Zofran] 4 mg PO Q4H PRN 07/17/22 12/05/22 History Fluticasone/Umeclidin/Vilanter 1 puff INHALATION RT-HS 07/25/22 12/05/22 History [Trelegy Ellipta 100-62.5-25] LORazepam [Ativan] 0.25 - 0.5 mg PO Q6H PRN 08/02/22 12/05/22 History Ipratropium-Albuterol Nebulize 3 ml INHALATION RT-QID each 08/06/22 12/05/22 Rx [Duoneb 0.5 mg-3 mg/3 ml Soln] Verapamil [Isoptin] 80 mg PO TID tab 08/06/22 12/05/22 Rx Albuterol Sulfate [Albuterol 2 puff PO RT-Q4H PRN 12/05/22 12/05/22 History Sulfate Hfa] Capecitabine 500mg 3 tab PO DIRECTED 12/05/22 12/05/22 History Capecitabine [Xeloda] 150 mg PO DIRECTED 12/05/22 12/05/22 History Hydrocortisone Cream 1 applic TOPICAL BID 12/05/22 12/05/22 History [Hydrocortisone 2.5% Cream] Megestrol [Megace] 800 mg PO DAILY 12/05/22 12/05/22 History Nystatin/Triamcin 1 applic TOPICAL BID 12/05/22 12/05/22 History [Nystatin-Triamcinolone Cream] Allergies Allergy/AdvReac Type Severity Reaction Status Date / Time No Known Allergies Allergy Verified 12/05/22 06:55 Physical Exam Vitals: Vital Signs Temp Pulse Resp BP Pulse Ox 12/05/22 06:38 97.7 F 108 H 18 92/64 97 12/05/22 05:14 106 H 20 102/62 12/05/22 04:44 20 12/05/22 04:43 114 H 20 113/77 95 12/05/22 03:29 98 F 120 H 25 H 141/90 95 Intake and Output 12/04/22 12/05/22 12/05/22 22:59 06:59 14:59 Other: Weight 36.2 kg GENERAL EXAM: Alert, cachectic and fatigued-appearing 72-year-old white female, in a mild amount of respiratory distress.. HEAD: Normocephalic and atraumatic EYES: Normal reaction of pupils, equal size. NOSE: Clear with pink turbinates. THROAT: No erythema or exudates. NECK: No masses, no JVD. CHEST: No chest wall deformity. Right Pleurx catheter present. LUNGS: Lungs are very diminished on the left. There is some air movement on the right. No wheezes, rhonchi, crackles. Patient is on 4 L/m nasal cannula. pursed lip breathing. CVS: S1 and S2 normal with systolic murmur grade 2 or 3, regular rhythm. No other extra heart sounds ABDOMEN: No hepatosplenomegaly, active bowel sounds, no guarding or rigidity. SPINE: No scoliosis or deformity SKIN: No rashes CENTRAL NERVOUS SYSTEM: No focal deficits, tone is normal in all 4 extremities. EXTREMITIES: There is no peripheral edema, clubbing, or cyanosis. Peripheral pulses are intact. Results - Laboratory Findings CBC and BMP: 12/05/22 03:27 12/05/22 04:19 PT/INR, D-dimer PT 11.4 sec (10.0-12.5) 12/05/22 03:27 INR 1.1 (<1.2) 12/05/22 03:27 Abnormal lab findings: Abnormal Labs 12/05/22 12/05/22 12/05/22 03:27 03:27 03:27 WBC 20.1 H MCV 102.9 H Neutrophils # 18.5 H Lymphocytes # 0.4 L Sodium 126 L Chloride 74 L* Carbon Dioxide 41 H* BUN 21 H Creatinine 0.23 L Glucose 159 H Plasma Lactic Acid Patrick 2.5 H* AST 47 H ALT 40 H 12/05/22 04:19 WBC MCV Neutrophils # Lymphocytes # Sodium 125 L Chloride 75 L Carbon Dioxide 46 H* BUN 21 H Creatinine 0.29 L Glucose 135 H Plasma Lactic Acid Patrick AST ALT - Diagnostic Findings Chest x-ray: image reviewed CT scan - chest: image reviewed Assessment and Plan Assessment: Metastatic breast cancer, currently on hormonal therapy. CT of the chest, abdomen, and pelvis demonstrated a small right pleural effusion without any pneumothorax. There was bilateral pleural thickening and nodularity. There was a chronic moderate size loculated left pleural effusion with associated atelectasis. Increased interstitial and airspace disease in the right lung suggestive of lymphangitic spread of the tumor. There were new fractures of the right superior and inferior pubic rami, subacute fracture of the right sacral ala, new mild compression fractures of T1, T2, T11. There is a chronic compression fracture of T7. Small malignant right-sided pleural effusion, with multiple previous thoracentesis and trapped lung/pneumothorax. Currently status/post right-sided Pleurx catheter, which she drains weekly with minimal output. There are plans to remove the catheter. Chronic loculated moderate size left-sided pleural effusion Acute on chronic hypoxemic respiratory failure, secondary to above, currently on 4 L per minute nasal cannula Leukocytosis Hyponatremia, related to poor oral intake Dehydration Cachexia Fall, sustaining new fractures of the superior and inferior pubic Rami, as well as new thoracic compression fractures of T1, T2, T11. Mild transaminitis COPD, maintained on Trelegy Ellipta inhaler on an outpatient basis Plan: Patient's medications, labs, imaging reviewed Patient has been experiencing shortness of breath and increased oxygen demands while at home. She is currently on nasal cannula 4 L/m Patient does have chronic loculated moderate size left-sided pleural effusion, I will discuss possible need for left-sided thoracentesis with Dr. Atwood. Patient is empirically given doses of one dose of Rocephin and azithromycin in the ER Normal saline is infusing at 50 ML's per hour Oncology was consulted We will continue to follow, and further recommendations are forthcoming. I have personally seen and examined the patient, performed the documentation and the assessment and plan as written. Number of minutes spent on the visit:20 This is a joint evaluation that was done along with the nurse practitioner. The patient was seen in the emergency department. His ventilation within a more than 30 minutes. The patient presented with increasing debility and worsening shortness of breath and a fall. She has pelvic fracture. The CAT scan of the chest was reviewed. There is chronic volume loss and a chronic left-sided pleural effusion and left that warrants no further intervention. As for the right lung, there is evidence of chronic sore disease. The right lung is adequately expanded. The Pleurx catheter in place and output is minimal at this point in time and the patient has not had any major output and this catheter can be potentially removed. She does have some cough and congestion and for that reason the patient was placed on IV Zosyn. She is quite cachectic and she is not eating. She has hyponatremia and this is a hypokalemic hyponatremia that needs to be corrected. The patient is currently on normal saline at rate of 75 mL an hour. Monitor electrolytes. Continue antibiotics. Prognosis poor based above-mentioned comorbidities. Time with Patient: Greater than 30
[2022-12-05] MEDS: IPRATROPIUM-ALBUTEROL 3 ML NEB INHALATION SCH ×4 (08:06→21:06)
[2022-12-05] MEDS: SYMBICORT 160-4.5 MCG INHALER INHALATION SCH ×2 (08:09→21:06)
[2022-12-05] MEDS ORDERED: LORazepam 0.5 MG TAB PO PRN (09:02)
[2022-12-05] MEDS ORDERED: ONDANSETRON 4 MG TAB PO PRN (09:02)
[2022-12-05] MEDS: PIPERACILLIN-TAZOBACTAM 3.375 GM in SODIUM CHLORIDE 0.9% 100 ML IVPB SCH ×2 (12:12→20:26)
[2022-12-05] MEDS: VERAPAMIL 80 MG TAB PO SCH ×2 (15:43→21:47)
--- NOTE | 2022-12-05 16:03 | P.HPIM ---
History of Present Illness H&P Date: 12/05/22 Chief Complaint: Shortness of breath Alice Boudreaux is a 72-year-old female patient who presented to ER with complaints of increased shortness of breath. Patient has been at bedside also reports she's had increased weakness. Patient has a past medical history of metastatic breast cancer with recurrent malignant pleural effusions requiring multiple previous thoracentesis is patient did have right Pleurx catheter placed back in July 2022. Patient reports that she was having weekly drainage from catheter but over the past 230 been minimal output with plans of removal of right Pleurx catheter per oncology services. Patient normally wears 2 L nasal cannula at home but her patient has required more over the past few weeks. Patient denies any recent illness. Chest x-ray performed showing continued near complete opacification of the left long there is some increased interstitial and airspace disease in the right lung enlarged cardiac silhouette stable bilateral pleural thickening plan: Pleural effusions greater on the left. CT of the chest abdomen and pelvis completed showing new mild compression fractures of T1 and T2 new compression fracture of T11 continued consolidation and atelectasis of the left long evidence of lung malignancy and some p rogression of metastatic disease continue moderate loculated left pleural effusion. Increasing interstitial and airspace disease in right lung findings suggestive of lymphangitic spread of tumor small right pleural effusion bilateral pleural thickening and nodularity chronic compression fracture T7. Mild cardiomegaly coronary artery disease. At this time patient admitted pulmonary and oncology service is consulted. White blood cell elevated at 20.1. Initial lactic acid 2. 5 repeat 0.8. Sodium 175, creatinine 0.29 bun 21 CO2 46 chloride 75. ALT 40 AST 47. Current vital signs temp 97.7, heart rate 108, respiratory rate 18, blood pressure 92/64 with pulse ox 94 on 2 L. Blood cultures ordered. Infectious disease service consulted Review of Systems Please refer to HPI otherwise unremarkable Past Medical History Past Medical History: Cancer Additional Past Medical History / Comment(s): breast ca, lung CA History of Any Multi-Drug Resistant Organisms: None Reported Past Surgical History: Breast Surgery Additional Past Surgical History / Comment(s): lt masectomy, right-sided thoracentesis 3 Past Anesthesia/Blood Transfusion Reactions: No Reported Reaction Past Psychological History: No Psychological Hx Reported Smoking Status: Never smoker Past Alcohol Use History: None Reported Past Drug Use History: None Reported - Past Family History Mother Family Medical History: Cancer Additional Family Medical History / Comment(s): Breast cancer on both sides of family. Medications and Allergies Home Medications Medication Instructions Recorded Confirmed Type Exemestane [Aromasin] 25 mg PO HS 07/17/22 12/05/22 History Ondansetron [Zofran] 4 mg PO Q4H PRN 07/17/22 12/05/22 History Fluticasone/Umeclidin/Vilanter 1 puff INHALATION RT-HS 07/25/22 12/05/22 History [Trelegy Ellipta 100-62.5-25] LORazepam [Ativan] 0.25 - 0.5 mg PO Q6H PRN 08/02/22 12/05/22 History Ipratropium-Albuterol Nebulize 3 ml INHALATION RT-QID each 08/06/22 12/05/22 Rx [Duoneb 0.5 mg-3 mg/3 ml Soln] Verapamil [Isoptin] 80 mg PO TID tab 08/06/22 12/05/22 Rx Albuterol Sulfate [Albuterol 2 puff PO RT-Q4H PRN 12/05/22 12/05/22 History Sulfate Hfa] Capecitabine 500mg 3 tab PO DIRECTED 12/05/22 12/05/22 History Capecitabine [Xeloda] 150 mg PO DIRECTED 12/05/22 12/05/22 History Hydrocortisone Cream 1 applic TOPICAL BID 12/05/22 12/05/22 History [Hydrocortisone 2.5% Cream] Megestrol [Megace] 800 mg PO DAILY 12/05/22 12/05/22 History Nystatin/Triamcin 1 applic TOPICAL BID 12/05/22 12/05/22 History [Nystatin-Triamcinolone Cream] Allergies Allergy/AdvReac Type Severity Reaction Status Date / Time No Known Allergies Allergy Verified 12/05/22 06:55 Physical Exam Vitals: Vital Signs Temp Pulse Resp BP Pulse Ox 12/05/22 08:30 107 H 18 99/58 94 L 12/05/22 08:19 104 H 12/05/22 08:10 96 12/05/22 08:09 105 H 12/05/22 06:38 97.7 F 108 H 18 92/64 97 12/05/22 05:14 106 H 20 102/62 12/05/22 04:44 20 12/05/22 04:43 114 H 20 113/77 95 12/05/22 03:29 98 F 120 H 25 H 141/90 95 Intake and Output 12/04/22 12/05/22 12/05/22 22:59 06:59 14:59 Other: Weight 36.2 kg Head normocephalic Neck supple Lungs minimal air movement on left side Heart regular rate and rhythm S1-S2, no rub or gallop Abdomen is soft nontender nondistended positive bowel sounds no hepatosplenomegaly Extremities no edema Neuro alert and orientated to 3 Results CBC & Chem 7: 12/05/22 03:27 12/05/22 04:19 Labs: Abnormal Lab Results - Last 24 Hours (Table) 12/05/22 12/05/22 12/05/22 Range/Units 03:27 03:27 03:27 WBC 20.1 H (3.8-10.6) k/uL MCV 102.9 H (80.0-100.0) fL Neutrophils # 18.5 H (1.3-7.7) k/uL Lymphocytes # 0.4 L (1.0-4.8) k/uL Sodium 126 L (137-145) mmol/L Chloride 74 L* (98-107) mmol/L Carbon Dioxide 41 H* (22-30) mmol/L BUN 21 H (7-17) mg/dL Creatinine 0.23 L (0.52-1.04) mg/dL Glucose 159 H (74-99) mg/dL Plasma Lactic Acid Patrick 2.5 H* (0.7-2.0) mmol/L AST 47 H (14-36) U/L ALT 40 H (4-34) U/L 12/05/22 Range/Units 04:19 WBC (3.8-10.6) k/uL MCV (80.0-100.0) fL Neutrophils # (1.3-7.7) k/uL Lymphocytes # (1.0-4.8) k/uL Sodium 125 L (137-145) mmol/L Chloride 75 L (98-107) mmol/L Carbon Dioxide 46 H* (22-30) mmol/L BUN 21 H (7-17) mg/dL Creatinine 0.29 L (0.52-1.04) mg/dL Glucose 135 H (74-99) mg/dL Plasma Lactic Acid Patrick (0.7-2.0) mmol/L AST (14-36) U/L ALT (4-34) U/L Assessment and Plan Assessment: 1. Increased shortness of breath secondary to metastatic breast cancer to lung with reoccuring plerual effusion 2. History of metastatic breast cancer currently on hormonal therapy. 3. Recurrent pleural effusions patient had Pleurx catheter placed in July 2022 4. Left pleural effusion noted on computed tomography scan 5. New fractures of the right superior and inferior pubic rami, subacute fracture of right sacral alae mild new compression fracture of T1-T2 and T11 with chronic compression fracture of T7 6. Leukocytosis 7. Hyponatremia 8. Acute on chronic hypoxic respiratory failure 9. Recent falls due to increased weakness 10. Dehydration 11. COPD DVT prophylaxis SCDs. GI prophylaxis Protonix Pulmonary services have been consulted Oncology service is consulted Infectious disease service is consulted Orthopedic service is consulted for new fractures Continue normal saline Patient was given IV antibiotics in ER Blood culture and repeat labs ordered Time with Patient: Greater than 30 (Greater than 60% of the total time spent in counseling and coordination of care)
[2022-12-05] MEDS ORDERED: NON FORMULARY DRUG (Fluticasone/Umeclidin/Vilanter [Trelegy Ellipta 100-62.5-25] 1 EACH Bl INHALATION SCH (20:00)
[2022-12-05 20:36] LABS: Appearance,Urine Clear (Clear); Bilirubin,Urine Negative (Negative); Blood,Urine Trace (Negative); Color,Urine Yellow; Glucose,Urine (UA) Trace (Negative); Ketones,Urine Negative (Negative); Nitrite,Urine Negative (Negative); Protein,Urine 1+ (Negative); Specific Gravity,Urine >1.030 (1.001-1.035); Urobilinogen,Urine <2.0 mg/dL (<2.0)
[2022-12-05 20:37] LABS: Leukocyte Esterase,Urine Negative (Negative)
[2022-12-05 20:40] LABS: Mucus,Urine Rare /hpf; RBC,Urine 6 /hpf (0-5); Squamous Epithelial Cell,Urine 1 /hpf (0-4); WBC,Urine 1 /hpf (0-5)
[2022-12-05] MEDS ORDERED: NYSTAT-TRIAMCIN 100,000-0.1 UNIT/GM-% CREAM 30 GM TUBE TOPICAL SCH (21:00)
[2022-12-05] MEDS: TRIAMCINOLONE 0.1% CREAM 80 GM TUBE TOPICAL SCH (21:25)
[2022-12-05] MEDS: NYSTATIN 100,000UNIT/GM CREAM 30 GM TUBE TOPICAL SCH (21:25)
[2022-12-05] MEDS: HYDROCORTISONE 2.5% RECTAL CREAM 30 GM TUBE TOPICAL SCH (21:25)
--- NOTE | 2022-12-05 22:12 | P.CONS ---
History of Present Illness - Reason for Consult Consult date: 12/05/22 Elevated white count and lactic acid Requesting physician: Meghann Seth - Chief Complaint Weakness and shortness of breath x few days - History of Present Illness Patient is a 72-year-old female with a past medical history significant for metastatic breast cancer with mets to the lung and the spine did have a history of recurrent malignant effusion requiring multiple thoracocentesis and right PleurX catheter placement in July 2022 patient was brought into the ER concerning for increasing shortness of breath that has been getting worse over the last few days and apparently the patient was noticed to be hypoxic requiring more supplemental oxygen patient has been complaining of cough which has been moderate intensity 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 denies a ny hemoptysis no nausea vomiting no choking on the phone abdominal pain or diarrhea on presentation to the hospital the patient was afebrile and no fever has been ordered subsequently patient was hypoxic currently on 4 L nasal cannula oxygen patient did have a white count of 20,000 with a left shift creatinine was normal enzymes are mildly elevated urine was negative patient did have a chest x-ray near complete opacification of the left lung increased interstitial MSV's disease in the right lung patient also have a CT of the chest abdominal pelvis that shows compression fracture consolidation left lung and evidence of progression of malignancy no acute abnormality inside the abdominal patient did receive Rocephin and Zithromax in the ER infectious disease was consulted for further management of antibiotic therapy Review of Systems Positive point and negatives has been mentioned in the HPI, complete review of systems was performed and all other systems are negative Past Medical History Past Medical History: Cancer Additional Past Medical History / Comment(s): breast ca, lung CA History of Any Multi-Drug Resistant Organisms: None Reported Past Surgical History: Breast Surgery Additional Past Surgical History / Comment(s): lt masectomy, right-sided thoracentesis 3 Past Anesthesia/Blood Transfusion Reactions: No Reported Reaction Past Psychological History: No Psychological Hx Reported Smoking Status: Never smoker Past Alcohol Use History: None Reported Past Drug Use History: None Reported - Past Family History Mother Family Medical History: Cancer Additional Family Medical History / Comment(s): Breast cancer on both sides of family. Medications and Allergies Home Medications Medication Instructions Recorded Confirmed Type Exemestane [Aromasin] 25 mg PO HS 07/17/22 12/05/22 History Ondansetron [Zofran] 4 mg PO Q4H PRN 07/17/22 12/05/22 History Fluticasone/Umeclidin/Vilanter 1 puff INHALATION RT-HS 07/25/22 12/05/22 History [Trelegy Ellipta 100-62.5-25] LORazepam [Ativan] 0.25 - 0.5 mg PO Q6H PRN 08/02/22 12/05/22 History Ipratropium-Albuterol Nebulize 3 ml INHALATION RT-QID each 08/06/22 12/05/22 Rx [Duoneb 0.5 mg-3 mg/3 ml Soln] Verapamil [Isoptin] 80 mg PO TID tab 08/06/22 12/05/22 Rx Albuterol Sulfate [Albuterol 2 puff PO RT-Q4H PRN 12/05/22 12/05/22 History Sulfate Hfa] Capecitabine 500mg 3 tab PO DIRECTED 12/05/22 12/05/22 History Capecitabine [Xeloda] 150 mg PO DIRECTED 12/05/22 12/05/22 History Hydrocortisone Cream 1 applic TOPICAL BID 12/05/22 12/05/22 History [Hydrocortisone 2.5% Cream] Megestrol [Megace] 800 mg PO DAILY 12/05/22 12/05/22 History Nystatin/Triamcin 1 applic TOPICAL BID 12/05/22 12/05/22 History [Nystatin-Triamcinolone Cream] Allergies Allergy/AdvReac Type Severity Reaction Status Date / Time No Known Allergies Allergy Verified 12/05/22 06:55 Physical Exam Vitals: Vital Signs Temp Pulse Resp BP Pulse Ox 12/05/22 08:30 107 H 18 99/58 94 L 12/05/22 08:19 104 H 12/05/22 08:10 96 12/05/22 08:09 105 H 12/05/22 06:38 97.7 F 108 H 18 92/64 97 12/05/22 05:14 106 H 20 102/62 12/05/22 04:44 20 12/05/22 04:43 114 H 20 113/77 95 12/05/22 03:29 98 F 120 H 25 H 141/90 95 Intake and Output 12/04/22 12/05/22 12/05/22 22:59 06:59 14:59 Other: Weight 36.2 kg GENERAL DESCRIPTION: Elderly male lying in bed, no distress. No tachypnea or accessory muscle of respiration use. HEENT: Shows Pallor , no scleral icterus. Oral mucous membrane is dry. NECK: Trachea central, no thyromegaly. LUNGS: Unlabored breathing. Decreased breaths at the base HEART: S1, S2, regular rate and rhythm. No loud murmur ABDOMEN: Soft, no tenderness , EXTREMITIES: No edema of feet. SKIN: No rash, no masses palpable. NEUROLOGICAL: The patient is awake, alert, oriented x3, mood and affect normal. Results CBC & Chem 7: 12/06/22 06:54 12/06/22 06:54 Labs: Abnormal Lab Results - Last 24 Hours (Table) 12/05/22 12/05/22 12/05/22 Range/Units 03:27 03:27 03:27 WBC 20.1 H (3.8-10.6) k/uL MCV 102.9 H (80.0-100.0) fL Neutrophils # 18.5 H (1.3-7.7) k/uL Lymphocytes # 0.4 L (1.0-4.8) k/uL Sodium 126 L (137-145) mmol/L Chloride 74 L* (98-107) mmol/L Carbon Dioxide 41 H* (22-30) mmol/L BUN 21 H (7-17) mg/dL Creatinine 0.23 L (0.52-1.04) mg/dL Glucose 159 H (74-99) mg/dL Plasma Lactic Acid Patrick 2.5 H* (0.7-2.0) mmol/L AST 47 H (14-36) U/L ALT 40 H (4-34) U/L 12/05/22 Range/Units 04:19 WBC (3.8-10.6) k/uL MCV (80.0-100.0) fL Neutrophils # (1.3-7.7) k/uL Lymphocytes # (1.0-4.8) k/uL Sodium 125 L (137-145) mmol/L Chloride 75 L (98-107) mmol/L Carbon Dioxide 46 H* (22-30) mmol/L BUN 21 H (7-17) mg/dL Creatinine 0.29 L (0.52-1.04) mg/dL Glucose 135 H (74-99) mg/dL Plasma Lactic Acid Patrick (0.7-2.0) mmol/L AST (14-36) U/L ALT (4-34) U/L Assessment and Plan (1) Leukocytosis Status: Acute Code(s): D72.829 - ELEVATED WHITE BLOOD CELL COUNT, UNSPECIFIED SNOMED Code(s): 530246264 (2) Pneumonia Status: Acute Priority: High Code(s): J18.9 - PNEUMONIA, UNSPECIFIED ORGANISM SNOMED Code(s): 729144103 Plan: 1patient with metastatic breast cancer history of malignant effusion requiring Pleurx catheter placement presented to hospital with increasing shortness of breath hypoxemia and a cough did have elevated white count with evidence of left-sided consolidation concerning for postobstructive/gram-negative pneumonia 2-we will obtain sputum for Gram stain culture check inflammatory markers 3-started patient on Zosyn 3.37 g every 8 hours We will follow on clinical condition and cultures to further adjust medication if needed Thank you for this consultation we will follow the patient along with you Dictation was produced using [employer] dictation software. please excuse any grammatical, word or spelling errors. Time with Patient: Greater than 30
[2022-12-06] MEDS: PIPERACILLIN-TAZOBACTAM 3.375 GM in SODIUM CHLORIDE 0.9% 100 ML IVPB SCH ×3 (02:58→18:32)
[2022-12-06] MEDS: SODIUM CHLORIDE 0.9% 1,000 ML IV SCH ×2 (06:37→22:10)
[2022-12-06] MEDS ORDERED: PANTOPRAZOLE 40 MG TABLET PO SCH (07:30)
[2022-12-06 07:31] LABS: Basophils % (A) 0 %; Eosinophils % (A) 0 %; HCT 34.7 % (34.0-46.0); HGB 11.4 gm/dL (11.4-16.0); Lymphocytes # (A) 0.3 k/uL (1.0-4.8); Lymphocytes % (A) 4 %; MCH 34.8 pg (25.0-35.0); MCHC 32.9 g/dL (31.0-37.0); MCV 105.8 fL (80.0-100.0); Macrocytosis Slight; Mean Platelet Volume 7.7; Monocytes # (A) 0.4 k/uL (0-1.0); Monocytes % (A) 5 %; Neutrophils # (A) 8.8 k/uL (1.3-7.7); Neutrophils % (A) 91 %; Platelet Count 202 k/uL (150-450); RBC 3.28 m/uL (3.80-5.40); RDW 12.1 % (11.5-15.5); WBC 9.7 k/uL (3.8-10.6)
[2022-12-06] MEDS: IPRATROPIUM-ALBUTEROL 3 ML NEB INHALATION SCH ×4 (07:58→21:18)
[2022-12-06] MEDS: SYMBICORT 160-4.5 MCG INHALER INHALATION SCH ×2 (07:58→21:18)
[2022-12-06] MEDS ORDERED: MEGESTROL 400 MG/10 ML CUP PO SCH (09:00)
[2022-12-06] MEDS: VERAPAMIL 80 MG TAB PO SCH ×3 (09:01→22:49)
[2022-12-06 09:18] LABS: ALT 31 U/L (4-34); AST 36 U/L (14-36); African American GFR (CKD) >90 (>60 ml/min/1.73 sqM); Albumin 3.1 g/dL (3.5-5.0); Alkaline Phosphatase 61 U/L (38-126); Blood Urea Nitrogen 20 mg/dL (7-17); C Reactive Protein 6.1 mg/dL (<1.0); Calcium 8.7 mg/dL (8.4-10.2); Chloride 80 mmol/L (98-107); Glucose 92 mg/dL (74-99); Non-African American GFR(CKD) >90 (>60 ml/min/1.73 sqM); Sodium 129 mmol/L (137-145); Total Bilirubin 0.5 mg/dL (0.2-1.3); Total Protein 5.6 g/dL (6.3-8.2)
[2022-12-06 09:22] LABS: Anion Gap 5 mmol/L
[2022-12-06 09:31] LABS: Carbon Dioxide 44 mmol/L (22-30)
--- NOTE | 2022-12-06 10:00 | P.PN ---
Subjective Progress Note Date: 12/06/22 Alice Boudreaux is a 72-year-old female patient who presented to ER with complaints of increased shortness of breath. Patient has been at bedside also reports she's had increased weakness. Patient has a past medical history of metastatic breast cancer with recurrent malignant pleural effusions requiring multiple previous thoracentesis is patient did have right Pleurx catheter placed back in July 2022. Patient reports that she was having weekly drainage from catheter but over the past 230 been minimal output with plans of removal of right Pleurx catheter per oncology services. Patient normally wears 2 L nasal cannula at home but her patient has required more over the past few weeks. Patient denies any recent illness. Chest x-ray performed showing continued near complete opacification of the left long there is some increased interstitial and airspace disease in the right lung enlarged cardiac silhouette stable bilateral pleural thickening plan: Pleural effusions greater on the left. CT of the chest abdomen and pelvis completed showing new mild compression fractures of T1 and T2 new compression fracture of T11 continued consolidation and atelectasis of the left long evidence of lung malignancy and some progression of metastatic disease continue moderate loculated left pleural effusion. Increasing interstitial and airspace disease in right lung findings suggestive of lymphangitic spread of tumor small right pleural effusion bilateral pleural thickening and nodularity chronic compression fracture T7. Mild cardiomegaly coronary artery disease. At this time patient admitted pulmonary and oncology service is consulted. White blood cell elevated at 20.1. Initial lactic acid 2. 5 repeat 0.8. Sodium 175, creatinine 0.29 bun 21 CO2 46 chloride 75. ALT 40 AST 47. Current vital signs temp 97.7, heart rate 108, respiratory rate 18, blood pressure 92/64 with pulse ox 94 on 2 L. Blood cultures ordered. Infectious disease service consulted On 12/06/2022 patient is alert and oriented 3. Patient remains short of breath. Awaiting further input from consults. Infectious disease following patient was started on Zosyn. Pulmonary oncology and orthopedic services also consulted. Temp 98.1 pulse 85 respiratory rate 16 blood pressure 112/65 with pulse ox 95% on 4 L. Objective - Vital Signs Vital signs: Vital Signs Temp 98.1 F 12/06/22 08:57 Pulse 85 12/06/22 08:57 Resp 16 12/06/22 08:57 BP 112/65 12/06/22 08:57 Pulse Ox 95 10/27/23 08:57 FiO2 Intake & Output 12/05/22 12/06/22 12/06/22 18:59 06:59 18:59 Intake Total 200 240 Output Total 250 Balance -50 240 Weight 39 kg Intake: Oral 200 240 Output: Urine 250 Other: Voiding Method External Catheter External Catheter - Exam Head normocephalic Neck supple Lungs minimal air movement on left side Heart regular rate and rhythm S1-S2, no rub or gallop Abdomen is soft nontender nondistended positive bowel sounds no hepat osplenomegaly Extremities no edema Neuro alert and orientated to 3 - Labs CBC & Chem 7: 12/06/22 06:54 12/06/22 06:54 Labs: Abnormal Lab Results - Last 24 Hours (Table) 12/05/22 12/05/22 12/06/22 Range/Units 04:19 20:20 06:54 RBC 3.28 L (3.80-5.40) m/uL MCV 105.8 H (80.0-100.0) fL Neutrophils # 8.8 H (1.3-7.7) k/uL Lymphocytes # 0.3 L (1.0-4.8) k/uL Sodium (137-145) mmol/L Chloride (98-107) mmol/L Carbon Dioxide (22-30) mmol/L BUN (7-17) mg/dL Creatinine (0.52-1.04) mg/dL C-Reactive Protein (<1.0) mg/dL Total Protein (6.3-8.2) g/dL Albumin (3.5-5.0) g/dL CA 15-3 Antigen 48.2 H (0.0-32.3) U/mL Urine RBC 6 H (0-5) /hpf Urine Mucus Rare H (None) /hpf 12/06/22 Range/Units 06:54 RBC (3.80-5.40) m/uL MCV (80.0-100.0) fL Neutrophils # (1.3-7.7) k/uL Lymphocytes # (1.0-4.8) k/uL Sodium 129 L (137-145) mmol/L Chloride 80 L (98-107) mmol/L Carbon Dioxide 44 H* (22-30) mmol/L BUN 20 H (7-17) mg/dL Creatinine 0.28 L (0.52-1.04) mg/dL C-Reactive Protein 6.1 H (<1.0) mg/dL Total Protein 5.6 L (6.3-8.2) g/dL Albumin 3.1 L (3.5-5.0) g/dL CA 15-3 Antigen (0.0-32.3) U/mL Urine RBC (0-5) /hpf Urine Mucus (None) /hpf Assessment and Plan Assessment: 1. Increased shortness of breath secondary to metastatic breast cancer to lung with reoccuring plerual effusion 2. History of metastatic breast cancer currently on hormonal therapy. 3. Recurrent pleural effusions patient had Pleurx catheter placed in July 2022 4. Left pleural effusion noted on computed tomography scan 5. New fractures of the right superior and inferior pubic rami, subacute fracture of right sacral alae mild new compression fracture of T1-T2 and T11 with chronic compression fracture of T7 6. Leukocytosis 7. Hyponatremia 8. Acute on chronic hypoxic respiratory failure 9. Recent falls due to increased weakness 10. Dehydration 11. COPD DVT prophylaxis SCDs. GI prophylaxis Protonix Pulmonary services have been consulted Oncology service is consulted Infectious disease service is consulted Orthopedic service is consulted for new fractures Continue normal saline Patient was given IV antibiotics in ER Blood culture and repeat labs ordered
--- NOTE | 2022-12-06 11:33 | P.CONS ---
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 She was first diagnosed in 1997. She had a modified radical mastectomy and had adjuvant chemotherapy with 4 cycles of AC + 4 cycles of Taxol, followed by at least 5 years of Tamoxifen. She had recurrence with metastatic disease in 2013, at which time she was referred to Dr. Romero. She has been on multiple treatments since due to disease progression. Most recently Afinitor and aromasin until disease progression 08/08/22. Around that time pt was inpt at least twice for SOB, thoracentesis with pleural fluid positive for breast carcinoma. She had a pneumothorax after procedure. She then had rt pleurex cath placed, she still has. Not much fluid has been able to be drained- likely loculated fluid now-so, there has been discussion of removal in the near future. She has been on single agent xeloda since late July/early August, dose adjustment 2/2 PPE. Been doing ok on it, this is her week off of xeloda. She had treatment f/u CT CAP today. She is currently admitted for hypoxia, weakness progressive over the last 3 weeks and then hard fall at home. Pt reporting pain in the buttocks but denies numbness or tingling in the legs, denies fever or chills, she is having trouble expectorating, her secretions are thick and clear, no hemoptysis. Denies N,V, acute changed in bowel or bladder habits. The report reads may be some disease progression in the lungs but, felt pt is acutely suffering from respiratory infection which may look like some disease progression. CT reports new T 1,2 compression fractures, new T11 comp fracture, and a chronic T7 comp fx. New rt superior and inferior and pubic rami fractures, subacute rt sacral ala fx. Ortho has been consulted. Review of Systems 10 point ROS is neg except as stated in HPI Past Medical History Past Medical History: Cancer Additional Past Medical History / Comment(s): breast carcinoma History of Any Multi-Drug Resistant Organisms: None Reported Past Surgical History: Breast Surgery Additional Past Surgical History / Comment(s): lt masectomy, right-sided thoracentesis 3 Past Anesthesia/Blood Transfusion Reactions: No Reported Reaction Past Psychological History: No Psychological Hx Reported Smoking Status: Never smoker Past Alcohol Use History: None Reported Past Drug Use History: None Reported - Past Family History Mother Family Medical History: Cancer Additional Family Medical History / Comment(s): Breast cancer on both sides of family. Medications and Allergies Home Medications Medication Instructions Recorded Confirmed Type Exemestane [Aromasin] 25 mg PO HS 07/17/22 12/05/22 History Ondansetron [Zofran] 4 mg PO Q4H PRN 07/17/22 12/05/22 History Fluticasone/Umeclidin/Vilanter 1 puff INHALATION RT-HS 07/25/22 12/05/22 History [Trelegy Ellipta 100-62.5-25] LORazepam [Ativan] 0.25 - 0.5 mg PO Q6H PRN 08/02/22 12/05/22 History Ipratropium-Albuterol Nebulize 3 ml INHALATION RT-QID each 08/06/22 12/05/22 Rx [Duoneb 0.5 mg-3 mg/3 ml Soln] Verapamil [Isoptin] 80 mg PO TID tab 08/06/22 12/05/22 Rx Albuterol Sulfate [Albuterol 2 puff PO RT-Q4H PRN 12/05/22 12/05/22 History Sulfate Hfa] Capecitabine 500mg 3 tab PO DIRECTED 12/05/22 12/05/22 History Capecitabine [Xeloda] 150 mg PO DIRECTED 12/05/22 12/05/22 History Hydrocortisone Cream 1 applic TOPICAL BID 12/05/22 12/05/22 History [Hydrocortisone 2.5% Cream] Megestrol [Megace] 800 mg PO DAILY 12/05/22 12/05/22 History Nystatin/Triamcin 1 applic TOPICAL BID 12/05/22 12/05/22 History [Nystatin-Triamcinolone Cream] Allergies Allergy/AdvReac Type Severity Reaction Status Date / Time No Known Allergies Allergy Verified 12/05/22 06:55 Physical Exam Vitals: Vital Signs Temp Pulse Resp BP Pulse Ox 12/05/22 11:21 104 H 12/05/22 11:08 108 H 12/05/22 08:30 107 H 18 99/58 94 L 12/05/22 08:19 104 H 12/05/22 08:10 96 12/05/22 08:09 105 H 12/05/22 06:38 97.7 F 108 H 18 92/64 97 12/05/22 05:14 106 H 20 102/62 12/05/22 04:44 20 12/05/22 04:43 114 H 20 113/77 95 12/05/22 03:29 98 F 120 H 25 H 141/90 95 Intake and Output 12/04/22 12/05/22 12/05/22 22:59 06:59 14:59 Other: Weight 36.2 kg - Constitutional General appearance: cooperative, no acute distress, thin - EENT lg amt of thick, clear mucus in oral cavity/oropharynx Eyes: anicteric sclerae, EOMI ENT: hearing grossly normal - Neck Neck: no lymphadenopathy - Respiratory Respiratory: bilateral: rhonchi - Cardiovascular Rhythm: regular Heart sounds: normal: S1, S2 Abnormal Heart Sounds: no systolic murmur, no diastolic murmur, no rub, no S3 Gallop, no S4 Gallop, no click, no other leg Peripheral Edema: bilateral: None - Gastrointestinal General gastrointestinal: no absent bowel sounds, no decreased bowel sounds, no distended, no hepatomegaly, no hyperactive bowel sounds, normal bowel sounds, no organomegaly, no rigid, no scaphoid, soft, no splenomegaly, no tenderness, no umbilical hernia, no ventral hernia - Integumentary feet have grade 1 PPE - Neurologic Neurologic: CNII-XII intact - Musculoskeletal Musculoskeletal: generalized weakness - Psychiatric Psychiatric: A&O x's 3, appropriate affect, intact judgment & insight Results CBC & Chem 7: 12/06/22 06:54 12/06/22 06:54 Labs: Abnormal Lab Results - Last 24 Hours (Table) 12/05/22 12/05/22 12/05/22 Range/Units 03:27 03:27 03:27 WBC 20.1 H (3.8-10.6) k/uL MCV 102.9 H (80.0-100.0) fL Neutrophils # 18.5 H (1.3-7.7) k/uL Lymphocytes # 0.4 L (1.0-4.8) k/uL Sodium 126 L (137-145) mmol/L Chloride 74 L* (98-107) mmol/L Carbon Dioxide 41 H* (22-30) mmol/L BUN 21 H (7-17) mg/dL Creatinine 0.23 L (0.52-1.04) mg/dL Glucose 159 H (74-99) mg/dL Plasma Lactic Acid Patrick 2.5 H* (0.7-2.0) mmol/L AST 47 H (14-36) U/L ALT 40 H (4-34) U/L 12/05/22 Range/Units 04:19 WBC (3.8-10.6) k/uL MCV (80.0-100.0) fL Neutrophils # (1.3-7.7) k/uL Lymphocytes # (1.0-4.8) k/uL Sodium 125 L (137-145) mmol/L Chloride 75 L (98-107) mmol/L Carbon Dioxide 46 H* (22-30) mmol/L BUN 21 H (7-17) mg/dL Creatinine 0.29 L (0.52-1.04) mg/dL Glucose 135 H (74-99) mg/dL Plasma Lactic Acid Patrick (0.7-2.0) mmol/L AST (14-36) U/L ALT (4-34) U/L Chest x-ray: report reviewed CT scan - abdomen: report reviewed CT scan - chest: report reviewed CT scan - pelvis: report reviewed Assessment and Plan (1) Fall Current Visit: Yes Status: Acute Priority: High Code(s): W19.XXXA - UNSPECIFIED FALL, INITIAL ENCOUNTER SNOMED Code(s): 7255749 (2) Breast cancer metastasized to multiple sites Current Visit: Yes Status: Chronic Priority: High Code(s): C50.919 - MALIGNANT NEOPLASM OF UNSP SITE OF UNSPECIFIED FEMALE BREAST SNOMED Code(s): 368018841 Plan: Fall -Generalized weakness and suspect upper resp infection -Orthopedics consulted Metastatic breast carcinoma -On xeloda since late July/early August this year. Done ok, especially after dose reduction. This is her week off of treatment -Treatment f/u CT CAP today reports there may be some disease progression in the lungs but, felt pt is acutely suffering from respiratory infection which may look like some disease progression. Lactic acid was elevated on admit. ID following and has pt on abx. Pulmonary following and will assess the pleurx cath and recommend what should be done there. Will see how pt does with treatment for resp infection. If resp status improves, then will repeat CT chest in the short term to assess if true progression. New T 1,2 compression fractures, new T11 comp fracture, and a chronic T7 comp fx. New rt superior and inferior and pubic rami fractures, subacute rt sacral ala fx, most likely 2/2 fall. Not felt to be malignant.
[2022-12-06] MEDS: NYSTATIN 100,000UNIT/GM CREAM 30 GM TUBE TOPICAL SCH ×2 (11:58→21:34)
[2022-12-06] MEDS: TRIAMCINOLONE 0.1% CREAM 80 GM TUBE TOPICAL SCH ×2 (11:58→21:34)
[2022-12-06] MEDS: HYDROCORTISONE 2.5% RECTAL CREAM 30 GM TUBE TOPICAL SCH ×2 (11:58→21:33)
[2022-12-06 12:14] VITALS: BMI 18.6
--- NOTE | 2022-12-06 13:45 | P.PN ---
Subjective Progress Note Date: 12/06/22 Principal diagnosis: fall, pneumonia, breast cancer At today's visit patient is resting comfortably in bed. Patient is in no acute respiratory distress. She reports no changes in breathing since admission. Patient continues on IV antibiotics for suspected pneumonia. WBC improved today at 9.7. Patient afebrile. No other reported complaints at this time Objective - Vital Signs Vital signs: Vital Signs Temp 98.1 F 12/06/22 08:57 Pulse 101 H 12/06/22 11:46 Resp 16 12/06/22 11:46 BP 100/59 12/06/22 11:46 Pulse Ox 95 12/06/22 11:46 FiO2 Intake & Output 12/05/22 12/06/22 12/06/22 18:59 06:59 18:59 Intake Total 200 240 Output Total 250 Balance -50 240 Weight 39 kg 39 kg Intake: Oral 200 240 Output: Urine 250 Other: //// //////////////////////////////////////////////////////////////////////////////// ///////////////////////////////// Voiding Method External Catheter External Catheter ///////////////////// - Constitutional General appearance: Present: no acute distress, thin - EENT Eyes: Present: anicteric sclerae, EOMI ENT: Present: hearing grossly normal - Respiratory Details: breathing even and unlabored - Cardiovascular Details: skin warm and dry - Integumentary Integumentary: Absent: cyanotic - Musculoskeletal Musculoskeletal: Present: generalized weakness - Psychiatric Psychiatric: Present: A&O x's 3, appropriate affect, intact judgment & insight - Labs CBC & Chem 7: 12/06/22 06:54 12/06/22 06:54 Labs: Abnormal Lab Results - Last 24 Hours (Table) 12/05/22 12/05/22 12/06/22 Range/Units 04:19 20:20 06:54 RBC (3.80-5.40) m/uL MCV (80.0-100.0) fL Neutrophils # (1.3-7.7) k/uL Lymphocytes # (1.0-4.8) k/uL Sodium (137-145) mmol/L Chloride (98-107) mmol/L Carbon Dioxide (22-30) mmol/L BUN (7-17) mg/dL Creatinine (0.52-1.04) mg/dL C-Reactive Protein (<1.0) mg/dL Total Protein (6.3-8.2) g/dL Albumin (3.5-5.0) g/dL CA 15-3 Antigen 48.2 H (0.0-32.3) U/mL Procalcitonin 0.13 H (0.02-0.09) ng/mL Urine RBC 6 H (0-5) /hpf Urine Mucus Rare H (None) /hpf 12/06/22 12/06/22 Range/Units 06:54 06:54 RBC 3.28 L (3.80-5.40) m/uL MCV 105.8 H (80.0-100.0) fL Neutrophils # 8.8 H (1.3-7.7) k/uL Lymphocytes # 0.3 L (1.0-4.8) k/uL Sodium 129 L (137-145) mmol/L Chloride 80 L (98-107) mmol/L Carbon Dioxide 44 H* (22-30) mmol/L BUN 20 H (7-17) mg/dL Creatinine 0.28 L (0.52-1.04) mg/dL C-Reactive Protein 6.1 H (<1.0) mg/dL Total Protein 5.6 L (6.3-8.2) g/dL Albumin 3.1 L (3.5-5.0) g/dL CA 15-3 Antigen (0.0-32.3) U/mL Procalcitonin (0.02-0.09) ng/mL Urine RBC (0-5) /hpf Urine Mucus (None) /hpf Microbiology - Last 24 Hours (Table) 12/05/22 04:30 Blood Culture - Preliminary Blood 12/05/22 04:15 Blood Culture - Preliminary Blood Assessment and Plan (1) Fall Current Visit: Yes Status: Acute Priority: High Code(s): W19.XXXA - UNSPECIFIED FALL, INITIAL ENCOUNTER SNOMED Code(s): 6420731 (2) Pneumonia Current Visit: Yes Status: Acute Priority: High Code(s): J18.9 - PNEUMONIA, UNSPECIFIED ORGANISM SNOMED Code(s): 853789269 (3) Breast cancer metastasized to multiple sites Current Visit: Yes Status: Chronic Priority: High Code(s): C50.919 - MALIGNANT NEOPLASM OF UNSP SITE OF UNSPECIFIED FEMALE BREAST SNOMED Code(s): 917156754 Plan: Fall -Generalized weakness and suspect upper resp infection -Orthopedics consulted Metastatic breast carcinoma -On xeloda since late July/early August this year. Done ok, especially after dose reduction. This is her week off of treatment -Treatment f/u CT CAP today reports there may be some disease progression in the lungs but, felt pt is acutely suffering from respiratory infection which may look like some disease progression. Lactic acid was elevated on admit. ID following and has pt on abx. Pulmonary following and will assess the pleurx cath and recommend what should be done there. Will see how pt does with treatment for resp infection. If resp status improves, then will repeat CT chest in the short term to assess if true progression. New T 1,2 compression fractures, new T11 comp fracture, and a chronic T7 comp fx. New rt superior and inferior and pubic rami fractures, subacute rt sacral ala fx, most likely 2/2 fall. Not felt to be malignant. -Treatment will be held until she acutely recovers -Clinic f/u upon discharge
--- NOTE | 2022-12-06 14:47 | P.PN ---
Subjective Progress Note Date: 12/06/22 I am seeing this patient in new consultation today 12/05/2022 in the emergency room after she presented earlier this morning complaining of progressively worsening shortness of breath over the last several weeks. She has also been very weak, and fell yesterday while going to the bathroom. Patient is a 72-year-old white female with past medical history significant for metastatic breast cancer, recurrent malignant pleural effusions with multiple previous thoracentesis. Her oncologist is Dr. Romero. She is on hormonal therapy. Patient has received multiple previous bilateral thoracentesis. She did have a right Pleurx catheter placed back in July,. She continues to drain her catheter weekly, but output has been minimal. There are plans to remove the catheter. Patient presented to emergency room earlier this morning with complaints of generalized weakness over the last couple weeks, and actually fell while ambulating to the bathroom yesterday. Patient's is at bedside, and states that he had to pick her up. She denies hitting her head. She is severely cachectic and weak. She states that she has also been progressively more short of breath. She normally wears 2 L/m nasal cannula, but her oxygen demands have recently increased. Denies any fevers, chills, chest pain. She has had a minimally productive cough. Denies any urinary complaints. Denies any abdominal pain, nausea or vomiting, diarrhea. She's had a poor appetite. CT of the chest, abdomen, and pelvis demonstrated a small right pleural effusion without any pneumothorax. There was bilateral pleural thickening and nodularity. There was a chronic moderate size loculated left pleural effusion with associated atelectasis. Increased interstitial and airspace disease in the right lung suggestive of lymphangitic spread of the tumor. There were new fractures of the right superior and inferior pubic rami, subacute fracture of the right sacral ala, new mild compression fractures of T1, T2, T11. There is a chronic compression fracture of T7. Patient is currently lying in bed, very weak and cachectic, on 4 L nasal cannula. SpO2 is 95%. Heart rhythm appears sinus tachycardia bedside monitor. Blood pressure is currently normotensive.. Denies any significant pain. CBC on arrival showed some leukocytosis with a WBC count of 20.1, hemoglobin 13.4, hematocrit 40.1, platelets 251. Most recent BMP has a sodium 125, potassium 3.9, chloride 75, serum bicarbonate 46, BUN 21, creatinine 0.29, glucose 135. Troponin 0.013 on arrival. NT proBNP 1570. Normal saline is currently infusing at 50 ML's per hour. She has received doses of azithromycin and Rocephin. She is afebrile. Patient is being admitted to the hospital. Her overall prognosis is guarded. On today's evaluation of 12/06/2022, the patient looks quite debilitated, weak, oral intake is quite diminished. The patient is resting comfortably in bed. She has a weak cough. She has some respiratory secretions that are minimal at this point in time. No fever or chills. As mentioned, the CAT scan of the chest shows no evidence of any pleural fluid on the right and a Pleurx catheter has not drained over this past several weeks. The patient is currently receiving IV fluids and the sodium level is improved and is currently up to 129. Bicarb is a 44, BUN is at 20 with a creatinine of 0.28. WBCs cause of 9.7 with a hemoglobin of 11.4. No issues with pain. She had a fall with pelvic fracture. She remains on oxygen and she is on 4 L with a pulse ox of 95%. Objective - Vital Signs Vital signs: Vital Signs Temp 98.1 F 12/06/22 08:57 Pulse 85 12/06/22 08:57 Resp 16 12/06/22 08:57 BP 112/65 12/06/22 08:57 Pulse Ox 95 12/06/22 08:57 FiO2 Intake & Output 12/05/22 12/06/22 12/06/22 18:59 06:59 18:59 Intake Total 200 240 Output Total 250 Balance -50 240 Weight 39 kg Intake: Oral 200 240 Output: Urine 250 Other: Voiding Method External Catheter External Catheter - Exam GENERAL EXAM: Alert, cachectic and fatigued-appearing 72-year-old white female, in a mild amount of respiratory distress.. The patient is currently on 40 L of oxygen nasal cannula HEAD: Normocephalic and atraumatic EYES: Normal reaction of pupils, equal size. NOSE: Clear with pink turbinates. THROAT: No erythema or exudates. NECK: No masses, no JVD. CHEST: No chest wall deformity. Right Pleurx catheter present. LUNGS: Lungs are very diminished on the left. There is some air movement on the right. No wheezes, rhonchi, crackles. Patient is on 4 L/m nasal cannula. pursed lip breathing. CVS: S1 and S2 normal with systolic murmur grade 2 or 3, regular rhythm. No other extra heart sounds ABDOMEN: No hepatosplenomegaly, active bowel sounds, no guarding or rigidity. SPINE: No scoliosis or deformity SKIN: No rashes CENTRAL NERVOUS SYSTEM: No focal deficits, tone is normal in all 4 extremities. EXTREMITIES: There is no peripheral edema, clubbing, or cyanosis. Peripheral pulses are intact. - Labs CBC & Chem 7: 12/06/22 06:54 12/06/22 06:54 Labs: Abnormal Lab Results - Last 24 Hours (Table) 12/05/22 12/05/22 12/06/22 Range/Units 04:19 20:20 06:54 RBC 3.28 L (3.80-5.40) m/uL MCV 105.8 H (80.0-100.0) fL Neutrophils # 8.8 H (1.3-7.7) k/uL Lymphocytes # 0.3 L (1.0-4.8) k/uL Sodium (137-145) mmol/L Chloride (98-107) mmol/L Carbon Dioxide (22-30) mmol/L BUN (7-17) mg/dL Creatinine (0.52-1.04) mg/dL C-Reactive Protein (<1.0) mg/dL Total Protein (6.3-8.2) g/dL Albumin (3.5-5.0) g/dL CA 15-3 Antigen 48.2 H (0.0-32.3) U/mL Urine RBC 6 H (0-5) /hpf Urine Mucus Rare H (None) /hpf 12/06/22 Range/Units 06:54 RBC (3.80-5.40) m/uL MCV (80.0-100.0) fL Neutrophils # (1.3-7.7) k/uL Lymphocytes # (1.0-4.8) k/uL Sodium 129 L (137-145) mmol/L Chloride 80 L (98-107) mmol/L Carbon Dioxide 44 H* (22-30) mmol/L BUN 20 H (7-17) mg/dL Creatinine 0.28 L (0.52-1.04) mg/dL C-Reactive Protein 6.1 H (<1.0) mg/dL Total Protein 5.6 L (6.3-8.2) g/dL Albumin 3.1 L (3.5-5.0) g/dL CA 15-3 Antigen (0.0-32.3) U/mL Urine RBC (0-5) /hpf Urine Mucus (None) /hpf Assessment and Plan Assessment: Metastatic breast cancer, currently on hormonal therapy. CT of the chest, abdomen, and pelvis demonstrated a small right pleural effusion without any pneumothorax. There was bilateral pleural thickening and nodularity. There was a chronic moderate size loculated left pleural effusion with associated atelectasis. Increased interstitial and airspace disease in the right lung suggestive of lymphangitic spread of the tumor. There were new fractures of the right superior and inferior pubic rami, subacute fracture of the right sacral ala, new mild compression fractures of T1, T2, T11. There is a chronic compression fracture of T7. Small malignant right-sided pleural effusion, with multiple previous thoracentesis and trapped lung/pneumothorax. Currently status/post right-sided Pleurx catheter, which she drains weekly with minimal output. There are plans to remove the catheter. Chronic loculated moderate size left-sided pleural effusion Acute on chronic hypoxemic respiratory failure, secondary to above, currently on 4 L per minute nasal cannula Leukocytosis Hyponatremia, related to poor oral intake, currently on normal saline in the sodium level is improving. Dehydration, improving. The patient is quite diminished oral intake. Cachexia Fall, sustaining new fractures of the superior and inferior pubic Rami, as well as new thoracic compression fractures of T1, T2, T11. Mild transaminitis COPD, maintained on Trelegy Ellipta inhaler on an outpatient basis Severe cachexia and severe protein calorie nutrition and the patient is a BMI of 18 Plan: Continue IV fluids Continue antibiotics, this is an empiric antibiotic coverage for the time being, the patient remains on IV Zosyn Sodium level is improving The patient presented with increasing debility and worsening shortness of breath and a fall. She has pelvic fracture. The CAT scan of the chest was reviewed. There is chronic volume loss and a chronic left-sided pleural effusion and left that warrants no further intervention. As for the right lung, there is evidence of chronic sore disease. The right lung is adequately expanded. The Pleurx catheter in place and output is minimal at this point in time and the patient has not had any major output and this catheter can be potentially removed. She does have some cough and congestion and for that reason the patient was placed on IV Zosyn. She is quite cachectic and she is not eating. dietary consultation has been obtained Supplement the patient with a short Very poor prognosis based above-mentioned comorbidities. Obtain a oncology consultation
--- NOTE | 2022-12-06 14:50 | P.PN ---
Subjective Progress Note Date: 12/06/22 Principal diagnosis: Pneumonia Patient is a 72-year-old female with a past medical history significant for metastatic breast cancer with mets to the lung and the spine did have a history of recurrent malignant effusion requiring multiple thoracocentesis and right PleurX catheter placement in July 2022 patient was brought into the ER concerning for increasing shortness of breath, patient did have elevated white count and a CT of the chest did shows evidence of consul tation left lung. On today's evaluation that is 12/06/2022, the patient denies any fever or any chills, the patient is breathing comfortably on 4 L nasal cannula supplemental oxygen, the patient denies any chest pain or worsening cough and no sputum production, patient denies any nausea/vomiting or diarrhea and no abdominal pain. Patient white count has normalized to 9.7, creatinine 0.28 blood cultures pending sputum and collected Objective - Vital Signs Vital signs: Vital Signs Temp 98.1 F 12/06/22 08:57 Pulse 85 12/06/22 08:57 Resp 16 12/06/22 08:57 BP 112/65 12/06/22 08:57 Pulse Ox 95 12/06/22 08:57 FiO2 Intake & Output 12/05/22 12/06/22 12/06/22 18:59 06:59 18:59 Intake Total 200 240 Output Total 250 Balance -50 240 Weight 39 kg Intake: Oral 200 240 Output: Urine 250 Other: Voiding Method External Catheter External Catheter - Exam GENERAL DESCRIPTION: An elderly female lying in bed in no distress RESPIRATORY SYSTEM: Unlabored breathing , decreased breath sound at the base HEART: S1 S2 regular rate and rhythm , ABDOMEN: Soft , no tenderness EXTREMITIES: No edema feet - Labs CBC & Chem 7: 12/06/22 06:54 12/06/22 06:54 Labs: Abnormal Lab Results - Last 24 Hours (Table) 12/05/22 12/05/22 12/06/22 Range/Units 04:19 20:20 06:54 RBC 3.28 L (3.80-5.40) m/uL MCV 105.8 H (80.0-100.0) fL Neutrophils # 8.8 H (1.3-7.7) k/uL Lymphocytes # 0.3 L (1.0-4.8) k/uL Sodium (137-145) mmol/L Chloride (98-107) mmol/L Carbon Dioxide (22-30) mmol/L BUN (7-17) mg/dL Creatinine (0.52-1.04) mg/dL C-Reactive Protein (<1.0) mg/dL Total Protein (6.3-8.2) g/dL Albumin (3.5-5.0) g/dL CA 15-3 Antigen 48.2 H (0.0-32.3) U/mL Urine RBC 6 H (0-5) /hpf Urine Mucus Rare H (None) /hpf 12/06/22 Range/Units 06:54 RBC (3.80-5.40) m/uL MCV (80.0-100.0) fL Neutrophils # (1.3-7.7) k/uL Lymphocytes # (1.0-4.8) k/uL Sodium 129 L (137-145) mmol/L Chloride 80 L (98-107) mmol/L Carbon Dioxide 44 H* (22-30) mmol/L BUN 20 H (7-17) mg/dL Creatinine 0.28 L (0.52-1.04) mg/dL C-Reactive Protein 6.1 H (<1.0) mg/dL Total Protein 5.6 L (6.3-8.2) g/dL Albumin 3.1 L (3.5-5.0) g/dL CA 15-3 Antigen (0.0-32.3) U/mL Urine RBC (0-5) /hpf Urine Mucus (None) /hpf Assessment and Plan (1) Pneumonia Current Visit: Yes Status: Acute Priority: High Code(s): J18.9 - PNEUMONIA, UNSPECIFIED ORGANISM SNOMED Code(s): 292751855 Plan: 1patient with metastatic breast cancer history of malignant effusion requiring Pleurx catheter placement presented to hospital with increasing shortness of breath hypoxemia and a cough did have elevated white count with evidence of left-sided consolidation concerning for postobstructive/gram-negative pneumonia 2-nursing staff has been advised to obtain sputum for Gram stain culture , inflammatory markers are pending Patient to continue with Zosyn 3.37 g every 8 hours and monitor clinical course closely Family the bedside multiple questions and concerns were answered in Layman terms Dictation was produced using deviantARTation software. please excuse any grammatical, word or spelling errors. Time with Patient: Less than 30
[2022-12-07] MEDS: PIPERACILLIN-TAZOBACTAM 3.375 GM in SODIUM CHLORIDE 0.9% 100 ML IVPB SCH (04:42)
[2022-12-07 04:54] VITALS: BP 120/57; RESP 16; TEMP 97.7
[2022-12-07] MEDS: IPRATROPIUM-ALBUTEROL 3 ML NEB INHALATION SCH (06:27)
[2022-12-07] MEDS: SYMBICORT 160-4.5 MCG INHALER INHALATION SCH (06:27)
[2022-12-07] MEDS ORDERED: LORazepam 2 MG/ML INJ IV PRN (06:53)
[2022-12-07] MEDS ORDERED: ACETAMINOPHEN SUPPOSITORY 650 MG SUPP RECTAL PRN (06:53)
[2022-12-07 06:58] VITALS: PULSE 83
[2022-12-07] MEDS ORDERED: SCOPOLAMINE 1 MG/72 HR PATCH TRANSDERM SCH (07:00)
[2022-12-07] MEDS ORDERED: MORPHINE SULFATE (100 MG/2 ML) 100 MG in SODIUM CHLORIDE 0.9% 100 ML IV SCH (07:00)
--- NOTE | 2022-12-07 12:46 | P.PN ---
Progress Note - Text Progress Note Date: 12/07/22 Orthopedic Consult Note Patient is a 72-year-old female who was brought to [facility] a few days ago with regards to worsening shortness of breath, pain is a history of metastatic breast cancer that is causing significant pleural effusions. Patient has been followed by oncology group and pulmonology for quite some time. Prior to being brought in the hospital, there was a falling incident that occurred at home. I was able to speak to the on 12/06/2022 regarding this, patient was attempting to go to the bathroom by herself when she slipped and landed on her backside. After being brought to the hospital on 12/05/2022, patient underwent multiple imaging and lab tests. She underwent a chest abdomen and pelvis with contrast. Results mentioned old compression fractures and new compression fractures throughout the thoracic spine. That also noted a fracture involving the superior and inferior pubic rami and sacral alar on the right-hand side. From initial reports, I did recommend patient to be able to weight-bear as tolerated with walker, patient's on bed rest since being admitted to the hospital due to her medical state. Initial evaluation of the patient was on 12/06/2022, patient and multiple family members at bedside. I was also able to speak with the that today regarding her recent medical state. At bedside, patient was sleeping, she was easily awoken will. A limited exam was done due to her overall medical state. A more in-depth exam was to take place on 11/29/2022, when I did arrive to the hospital to examine the patient nursing did notify me the patient did pass earlier in the morning. Patient's family was present at bedside.
--- NOTE | 2022-12-07 14:09 | P.PN ---
Progress Note - Text Progress Note Date: 12/07/22 Records of family meeting Patient had significant discomfort throughout the night, she was having shortness of breath, and increasing discomfort. This morning family and patient decided to proceed with comfort measures only.
--- NOTE | 2022-12-07 14:12 | P.DS ---
Providers Date of admission: 12/05/22 05:52 Expected date of discharge: 12/07/22 Attending physician: Meghann Seth Consults: 12/05/22 05:52 Consult Physician Routine Consulting Provider: Néstor Atwood Consult Reason/Comments: Metastatic breast cancer, pleural effusion Do you want consulting provider notified?: Yes Consult Physician Routine Consulting Provider: Giuliano Romero Consult Reason/Comments: Met breast cancer Do you want consulting provider notified?: Yes 12/05/22 09:56 Consult Physician Routine Consulting Provider: Nedra Potts Consult Reason/Comments: Elevated white count lactic acid Do you want consulting provider notified?: Yes 12/06/22 13:53 Consult Physician Routine Consulting Provider: Nasim Diaz Consult Reason/Comments: Compression fx, pubic fx Do you want consulting provider notified?: Yes Primary care physician: Snagita Knight Hospital Course: Diagnosis on discharge: 1. Increased shortness of breath secondary to metastatic breast cancer to lung with reoccuring plerual effusion 2. History of metastatic breast cancer currently on hormonal therapy. 3. Recurrent pleural effusions patient had Pleurx catheter placed in July 2022 4. Left pleural effusion noted on computed tomography scan 5. New fractures of the right superior and inferior pubic rami, subacute fracture of right sacral alae mild new compression fracture of T1-T2 and T11 with chronic compression fracture of T7 6. Leukocytosis 7. Hyponatremia 8. Acute on chronic hypoxic respiratory failure 9. Recent falls due to increased weakness 10. Dehydration 11. Underlying history of COPD Hospital course: Alice Boudreaux is a 72-year-old female patient who presented to ER with complaints of increased shortness of breath. Patient has been at bedside also reports she's had increased weakness. Patient has a past medical history of metastatic breast cancer with recurrent malignant pleural effusions requiring multiple previous thoracentesis is patient did have right Pleurx catheter placed back in July 2022. Patient reports that she was having weekly drainage from catheter but over the past 230 been minimal output with plans of removal of right Pleurx catheter per oncology services. Patient normally wears 2 L nasal cannula at home but her patient has required more over the past few weeks. Patient denies any recent illness. Chest x-ray performed showing continued near complete opacification of the left long there is some increased interstitial and airspace disease in the right lung enlarged cardiac silhouette stable bilateral pleural thickening plan: Pleural effusions greater on the left. CT of the chest abdomen and pelvis completed showing new mild compression fractures of T1 and T2 new compression fracture of T11 continued consolidation and atelectasis of the left long evidence of lung malignancy and some progression of metastatic disease continue moderate loculated left pleural effusion. Increasing interstitial and airspace disease in right lung findings suggestive of lymphangitic spread of tumor small right pleural effusion bilateral pleural thickening and nodularity chronic compression fracture T7. Mild cardiomegaly coronary artery disease. At this time patient admitted pulmonary and oncology service is consulted. White blood cell elevated at 20.1. Initial lactic acid 2. 5 repeat 0.8. Sodium 175, creatinine 0.29 bun 21 CO2 46 chloride 75. ALT 40 AST 47. Current vital signs temp 97.7, heart rate 108, respiratory rate 18, blood pressure 92/64 with pulse ox 94 on 2 L. Blood cultures ordered. Infectious disease service consulted On 12/06/2022 patient is alert and oriented 3. Patient remains short of breath. Awaiting further input from consults. Infectious disease following patient was started on Zosyn. Pulmonary oncology and orthopedic services also consulted. Temp 98.1 pulse 85 respiratory rate 16 blood pressure 112/65 with pulse ox 95% on 4 L. On 12/07 2022 patient was seen and examined on the telemetry floor, she is having worsening shortness of breath, she had worsening discomfort throughout last night, family decided to proceed with comfort care only, patient at 10:04 AM Patient Condition at Discharge: Serious Plan - Discharge Summary Discharge Rx Participant: Yes New Discharge Prescriptions: No Action Exemestane [Aromasin] 25 mg PO HS Ondansetron [Zofran] 4 mg PO Q4H PRN PRN Reason: Nausea Ipratropium-Albuterol Nebulize [Duoneb 0.5 mg-3 mg/3 ml Soln] 3 ml INHALATION RT-QID each Nystatin/Triamcin [Nystatin-Triamcinolone Cream] 1 applic TOPICAL BID Hydrocortisone Cream [Hydrocortisone 2.5% Cream] 1 applic TOPICAL BID Albuterol Sulfate [Albuterol Sulfate Hfa] 2 puff PO RT-Q4H PRN PRN Reason: Shortness Of Breath Fluticasone/Umeclidin/Vilanter [Trelegy Ellipta 100-62.5-25] 1 puff INHALATION RT-HS LORazepam [Ativan] 0.25 - 0.5 mg PO Q6H PRN PRN Reason: Anxiety Verapamil [Isoptin] 80 mg PO TID tab Capecitabine 500mg 3 tab PO DIRECTED Capecitabine [Xeloda] 150 mg PO DIRECTED Megestrol [Megace] 800 mg PO DAILY Discharge Medication List Exemestane [Aromasin] 25 mg PO HS 07/17/22 [History] Ondansetron [Zofran] 4 mg PO Q4H PRN 07/17/22 [History] Fluticasone/Umeclidin/Vilanter [Trelegy Ellipta 100-62.5-25] 1 puff INHALATION RT-HS 07/25/22 [History] LORazepam [Ativan] 0.25 - 0.5 mg PO Q6H PRN 08/02/22 [History] Ipratropium-Albuterol Nebulize [Duoneb 0.5 mg-3 mg/3 ml Soln] 3 ml INHALATION RT-QID each 08/06/22 [Rx] Verapamil [Isoptin] 80 mg PO TID tab 08/06/22 [Rx] Albuterol Sulfate [Albuterol Sulfate Hfa] 2 puff PO RT-Q4H PRN 12/05/22 [History] Capecitabine 500mg 3 tab PO DIRECTED 12/05/22 [History] Capecitabine [Xeloda] 150 mg PO DIRECTED 12/05/22 [History] Hydrocortisone Cream [Hydrocortisone 2.5% Cream] 1 applic TOPICAL BID 12/05/22 [History] Megestrol [Megace] 800 mg PO DAILY 12/05/22 [History] Nystatin/Triamcin [Nystatin-Triamcinolone Cream] 1 applic TOPICAL BID 12/05/22 [History] Follow up Appointment(s)/Referral(s): Giuliano Romero [STAFF PHYSICIAN] - 12/11/22 4:30 pm Sangita Knight MD [Primary Care Provider] - 1-2 days Discharge Disposition: - Preliminary Cause of Preliminary Cause of : Metastatic breast cancer
--- NOTE | 2022-12-10 20:12 | CDI ---
Documentation Clarification Form Date: 12/10/2022 07:54:35 PM From: Jeri Tse RN, CCDS Email: [email or web address] Admit Date: 12/05/2022 05:52:00 AM Patient Name: Alice Boudreaux Visit Number: [id number] Discharge Date: 12/07/2022 01:54:00 PM ATTENTION: The Clinical Documentation Specialists (CDI) and [facility] Coding Staff appreciate your assistance in clarifying documentation. Please respond to the clarification below the line at the bottom and electronically sign. The CDI & [facility] Coding staff will review the response and follow-up if needed. Please note: Queries are made part of the Legal Health Record. If you have any questions, please contact the author of this message via ITS. Dr. Meghann Seth The patient had malignant pleural effusion, pneumonia, leukocytosis, and an elevated WBC count. Based on this information and the findings below, is there an additional diagnosis that is clinically appropriate for this patient? History/Risk Factors: metastatic breast cancer with recurrent malignant pleural effusions requiring multiple previous thoracentesis. The patient did have right Pleurx catheter placed back in July 2022. Wears home oxygen. Presented with worsening dyspnea and hypoxia. Admitted with recurrent pleural effusions, acute hypoxic respiratory failure and possible gram negative pneumonia. Clinical Indicators: H&P: "Recurrent pleural effusions. Leukocytosis." 12/05-12/06 WBC: 20.1 -9.7; Neutrophils 18.5-8.8, CRP 6.1, Procalcitonin 0.13 12/05 Lactic acid: 2.5-0.8 12/05 Vital signs: HR [id number]; RR 25; BP 92/64 12/05 CXR: Continued near complete opacification in the left lung. Loculated left pleural effusion. Treatment: ID Consult: "patient with metastatic breast cancer, malignant effusion requiring Pleurx catheter placement. Presented to hospital with increasing shortness of breath, hypoxemia and a cough. Did have elevated white count with evidence of left-sided consolidation concerning for post obstructive/gram-negative pneumonia." Antibiotics: IV Azithromycin 500mg x1 on 12/05; IV Rocephin 2gm x1 on 12/05; IV Zosyn 3.375gm Q8H 12/05-12/07 IV: 0.9 NS @75mL/hr 12/05-12/06 Is there an additional diagnosis that is clinically appropriate for this patient? [ xxx ] Sepsis, present on admission [ ] No additional diagnosis [ ] Other, please specify [ ] Unable to determine SIRS Criteria: 2 or more of the following may indicate SIRS Temperature < 96.8F (36C) or > 101.0F (38.3C) Heart Rate > 90 bpm Respiratory Rate > 20 breaths/min or PaCO2 < 32 mmHg White Blood Cell Count > 12,000 or < 4,000 cells/mm3 or > 10% bands MTDD
== END 2022-12-07 13:54 | disposition expired | DRG 871 ==
LOC: EC 03:16 → 3SCARD 05:52
PROVIDERS: ADMIT Internal Medicine; ATTEND Internal Medicine
DX: A41.9 Sepsis, unspecified organism (principal); E43 Unspecified severe protein-calorie malnutrition; J15.69 Pneumonia due to other Gram-negative bacteria; J96.21 Acute and chronic respiratory failure with hypoxia; C78.02 Secondary malignant neoplasm of left lung; S32.591A Other specified fracture of right pubis, initial encounter for closed fracture; R64 Cachexia; S32.119A Unspecified Zone I fracture of sacrum, initial encounter for closed fracture; C79.51 Secondary malignant neoplasm of bone; C77.1 Secondary and unspecified malignant neoplasm of intrathoracic lymph nodes; M48.54XA Collapsed vertebra, not elsewhere classified, thoracic region, initial encounter for fracture; J44.0 Chronic obstructive pulmonary disease with (acute) lower respiratory infection; J91.0 Malignant pleural effusion; Z68.1 Body mass index [BMI] 19.9 or less, adult; E87.1 Hypo-osmolality and hyponatremia; J98.11 Atelectasis; Z66 Do not resuscitate; Z51.5 Encounter for palliative care; Z99.81 Dependence on supplemental oxygen; E87.8 Other disorders of electrolyte and fluid balance, not elsewhere classified; E86.0 Dehydration; I44.4 Left anterior fascicular block; I25.10 Atherosclerotic heart disease of native coronary artery without angina pectoris; E87.6 Hypokalemia; I51.7 Cardiomegaly; R29.6 Repeated falls; R74.01 Elevation of levels of liver transaminase levels; Z96.89 Presence of other specified functional implants; W01.0XXA Fall on same level from slipping, tripping and stumbling without subsequent striking against object, initial encounter; Y92.009 Unspecified place in unspecified non-institutional (private) residence as the place of occurrence of the external cause; Z79.890 Hormone replacement therapy; Z85.3 Personal history of malignant neoplasm of breast; Z80.3 Family history of malignant neoplasm of breast; Z90.12 Acquired absence of left breast and nipple; Z98.82 Breast implant status; Z79.51 Long term (current) use of inhaled steroids; Z91.81 History of falling; Z79.899 Other long term (current) drug therapy
CPT/HCPCS: 36415; 71045; 71260; 74177; 80048; 80053; 81001; 83605; 83735; 83880; 84145; 84484; 85025; 85610; 85730; 86140; 86300; 87040; 93005; 94640; 94760; 96361; 96365; 96366; 96367; 99285